=== PATIENT | male | born 1975 | race Caucasian/White ===

== ENCOUNTER 2023-12-03 14:25 | Outpatient (CLI) | payer BC, SELFPAY ==
--- NOTE | ~2023-12-03 | MR_ITS ---
EXAMINATION: MR ankle RT wo con, MR foot RT wo con DATE: 12/03/2023 15:35 INDICATION: Right foot and ankle pain TECHNIQUE: 1. Magnetic resonance imaging (MRI) of the right ankle was performed without intravenous contrast. Se quences included sagittal, coronal, and axial proton-density weighted fast spin echo without and with fat saturation. 2. MRI of the right fore/mid foot was performed without intravenous contrast. Sequences included sag ittal T1-weighted FSE, sagittal fluid sensitive FSE STIR, coronal PD-weighted FS FSE, coronal T1-weig hted FSE, axial PD-weighted FS FSE, and axial PD-weighted FSE. COMPARISON: None. FINDINGS: Medial ankle ligaments: There is loss of the normally well-defined striated pattern of the deep deltoid ligament consistent w ith scarring related to chronic sprain. Also consistent with scarring related to chronic sprain is th ickening of the anterior portion of the superficial deltoid ligament. The spring ligament complex is normal. Lateral ankle ligaments: The anterior and posterior inferior tibiofibular ligaments are normal. Small osteophyte at the talar insertion of the posterior talofibular ligament which likely represent heterotopic ossification relat ed to chronic sprain. Susceptibility artifact along the anterior and inferior margins of the lateral malleolus likely related to prior repair of the at least partially torn anterior talofibular and calc aneofibular ligaments both which appear attenuated. Mid/forefoot ligaments: The Lis Franc ligament complex is normal. There is mild thickening and minimal increased signal of th e lateral collateral ligament complex at the first metatarsophalangeal joint consistent with scarring related to chronic sprain. The remaining collateral ligament complexes at the metatarsophalangeal an d interphalangeal joints are normal. Tendons: Achilles tendon is normal. There is mild peroneal tenosynovitis. Mild kidneys from the knee and mild central increased signal of the peroneus longus tendon at the level of the tip of the lateral malleol us consistent with mild tendinopathy without discrete tear. There is additional mild tendinopathy wit h longitudinal split tearing of the peroneus brevis tendon beginning at the level of the retromalleol ar groove and extending to the level of the peroneal tubercle of the calcaneus. The tibialis anterior and extensor hallucis longus and extensor digitorum longus tendons are normal. No increased fluid co nsistent with additional tenosynovitis extending along the otherwise normal-appearing tibialis team leader surgery ior, flexor digitorum longus and flexor hallucis longus tendons. Plantar fascia: Minimal enthesopathy at the calcaneal origin of the central component of the plantar aponeurosis. No associated marrow or surrounding soft tissue edema to suggest acute plantar fasciitis. Bones/other: Bone alignment is normal. No fracture or pathologic marrow replacing process. There is mild marrow ed nivia at the plantar/lateral aspect of the head of the first metatarsal and the adjacent plantar/medial margin of the head of the second metatarsal. There is increased fluid signal in the intervening soft tissues. These findings could be related to an acute injury with bone and soft tissue contusions giles maria esther more chronic intermetatarsal bursitis and associated reactive edema. There is mild osteoarthritis at the first metatarsophalangeal joint with small joint effusion. Additional minimal to mild osteoar thritis at second-fourth tarsal metatarsal joints. IMPRESSION: 1. Scarring consistent with prior medial and lateral ankle sprains with postoperative change at the l ateral malleolus likely for repair of chronic at least partial tears of the anterior talofibular, margie caneofibular and potentially also the posterior talofibular ligament. 2. Mild peroneal tenosynovitis with tendinopathy of the peroneus longus and brevis tendons, the nadege michele
== END 2023-12-03 14:26 | disposition home or self-care (01) ==
PROVIDERS: Visit Provider Podiatrist Foot & Ankle Surgery
DX: M65.871 Other synovitis and tenosynovitis, right ankle and foot (principal); M19.071 Primary osteoarthritis, right ankle and foot; M89.8X7 Other specified disorders of bone, ankle and foot
CPT/HCPCS: 73718; 73721

== ENCOUNTER 2024-10-18 14:04 | Outpatient (NON) | payer BC, SELFPAY ==
[2024-10-18 14:19] LABS: Hematocrit 37.2 % (40.0-54.0); Hemoglobin 12.7 g/dL (14.0-18.0); Mean Corpuscular HGB Conc 34.1 g/dL (32-36); Mean Corpuscular Hemoglobin 28.7 pg (27.0-31.0); Mean Platelet Volume 9.2 fl (8.7-11.0); Platelet Count Result 303 K/mm3 (150-420); Red Blood Count 4.43 M/mm3 (4.70-6.10); Red Cell Distribution Width 12.5 % (11.6-14.4); White Blood Count 5.4 K/mm3 (4.8-10.8)
[2024-10-18 14:36] LABS: Alanine Aminotransferase 37 U/L (16-63); Albumin Level 3.9 g/dL (3.4-5.0); Alkaline Phosphatase 64 U/L (46-116); Anion Gap 8 mmol/L (4-12); Aspartate Amino Transferase 23 U/L (15-37); Bilirubin,Total 0.4 mg/dL (0.00-1.00); Blood Urea Nitrogen 9 mg/dL (7-18); Carbon Dioxide 28 mmol/L (21-32); Chloride 99 mmol/L (98-108); Estimated Glomerular Filt Rate > 60; Glucose 97 mg/dL (70-99); Osmolality Calculated 278 mOsm/kg (285-295); Potassium 4.8 mmol/L (3.5-5.1); Sodium 135 mmol/L (136-145); Total Protein 6.7 g/dL (6.4-8.2)
[2024-10-18 14:42] LABS: Calcium 9.2 mg/dL (8.5-10.1)
[2024-10-18 14:48] LABS: CRP < 0.5 mg/dL (0.0-0.9)
[2024-10-18 15:14] LABS: Erythrocyte Sedimentation Rate 10 mm/hr (0-15)
== END 2024-10-18 14:05 | disposition home or self-care (01) ==
DX: D72.829 Elevated white blood cell count, unspecified (principal); R56.9 Unspecified convulsions; D62 Acute posthemorrhagic anemia; T84.59XA Infection and inflammatory reaction due to other internal joint prosthesis, initial encounter; Y83.8 Other surgical procedures as the cause of abnormal reaction of the patient, or of later complication, without mention of misadventure at the time of the procedure; Z79.2 Long term (current) use of antibiotics; Z96.611 Presence of right artificial shoulder joint; Z45.2 Encounter for adjustment and management of vascular access device
CPT/HCPCS: 80053; 85027; 85652; 86140

== ENCOUNTER 2025-08-23 11:51 | Outpatient (NON) | payer OTHER, SELFPAY ==
[2025-08-23 12:12] LABS: Hematocrit 35.5 % (40.0-54.0); Hemoglobin 11.6 g/dL (14.0-18.0); Mean Corpuscular HGB Conc 32.7 g/dL (32-36); Mean Corpuscular Hemoglobin 28.2 pg (27.0-31.0); Mean Corpuscular Volume 86.4 fL (78.0-102.0); Platelet Count Result 268 K/mm3 (150-420); Red Blood Count 4.11 M/mm3 (4.70-6.10); White Blood Count 7.3 K/mm3 (4.8-10.8)
[2025-08-23 12:24] LABS: Alanine Aminotransferase 68 U/L (6-50); Albumin Level 4.2 g/dL (3.5-5.1); Alkaline Phosphatase 67 U/L (38-126); Anion Gap 5 mmol/L (4-12); Aspartate Amino Transferase 76 U/L (17-59); Bilirubin,Total 0.4 mg/dL (0.2-1.3); Blood Urea Nitrogen 13 mg/dL (9-20); Calcium 9.8 mg/dL (8.4-10.2); Carbon Dioxide 29 mmol/L (22-30); Chloride 102 mmol/L (98-107); Estimated Glomerular Filt Rate 59; Glucose 101 mg/dL (65-110); Osmolality Calculated 282 mOsm/kg (285-295); Potassium 5.0 mmol/L (3.4-5.0); Sodium 136 mmol/L (137-145); Total Protein 6.8 g/dL (6.3-8.2)
== END 2025-08-23 11:52 | disposition home or self-care (01) ==
DX: T84.59XD Infection and inflammatory reaction due to other internal joint prosthesis, subsequent encounter (principal); I10 Essential (primary) hypertension
CPT/HCPCS: 36415; 80053; 85027

== ENCOUNTER 2025-09-05 13:51 | Outpatient (NON) | payer OTHER, SELFPAY ==
--- OUTSIDE RECORDS SUMMARY | 2024-09-20 02:51 | XMS_ITS | Encounter Summary ---
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 This section includes the names of all active insurance providers for the patient. Insurance Provider Type of Coverage Plan Name Start of Policy Coverage End of Policy Coverage Group Number Member ID Insurance Provider's Telephone Number Policy Knapp's Name Patient's Relationship to Policy Knapp Selected Encounter This section includes the information on record at [place] for the Encounter. Date/Time Encounter Type Encounter Description Reason Pro vider Source Sep 20, 2024 08:51 AM Outpatient Encounter COMMUNITY CARE CONSULT IHE Encounter Template Text not used by [place] Plan of Treatment: Future Appointments (+ 6 months) and Future Tests (+/- 45 days) The Plan of Treatment section includes future care activities for the patient from all [place] treatmentfacilities. This section includes future appointments and future orders which are active, pending or scheduled. Future Appointments This section includes appointments that were scheduled to occur 6 months from the date of the Encounter, up to a maximum of 20 appointments. The data comes from all [place] treatment facilities. Appointment Date/Time Appointment Type Appointme nt Facility Name Sep 21, 2024 08:00 AM AMBULATORY - NONE [facility] Oct 18, 2024 08:30 AM AMBULATORY - MEDICINE [facility] Oct 19, 2024 01:00 PM AMBULATORY - NONE [facility] Jan 05, 2025 03:30 PM AMBULATORY - PSYCHIATRY [facility] Jan 16, 2025 03:30 PM AMBULATORY - MEDICINE [facility] Jan 23, 2025 02:15 PM AMBULATORY - MEDICINE [facility] Jan 25, 2025 09:45 AM AMBULATORY - MEDICINE [facility] Feb 06, 2025 02:00 PM AMBULATORY - REHAB [facility]ICIN [facility] Feb 21, 2025 08:00 AM AMBULATORY - NONE [facility] March 14, 2025 10:20 AM AMBULATORY - SURGERY . [facility] March 20, 2025 11:00 AM AMBULATORY - MEDICINE [facility] Active, Pending, and Scheduled Orders This section includes a listing of several types of active, pending, and scheduled orders, including clinic medications orders, diagnostic test orders, procedure orders and consult orders; where the start date of the order is 45 days before the date of the Encounter or 45 days after the date of theEncounter. The data comes from all [place] treatment facilities. Test Date/Time Test Type Test Details Facility Name Sep 18, 2024 08:39 AM Consult Order [facility] INFECTIOUS DISEASE Cons Clerical Support Specialist's [facility] Sep 18, 2024 08:39 AM Consult Order [facility] SKILLED HOME CARE [facility] Cons Clerical Support Specialists [facility] Sep 18, 2024 08:39 AM Consult Order [facility] HOME INFUSION THERAPY ST Cons Clerical Support Specialist's [facility] Encounter Notes: All associated encounter notes This section contains the clinical notes associated to the Encounter. Date/Time Encounter Note(s) Provider Source Sep 20, 2024 08:52 AM NONVA NOTE: LOCAL TITLE: COMMUNITY CARE-CARE COORDINATION PLAN NOTE [address] [facility] STANDARD TITLE: NONVA NOTE DATE OF NOTE: SEP 20, 2024@08:52 ENTRY DATE: SEP 20, 2024@08:52:08 AUTHOR: OPAL SILVA EXP COSIGNER: URGENCY: STATUS: COMPLETED Mukesh w/ [facility] called seeking confirmation of referral. Informed provider that a referral is avaiable and will be sent once [facility] is back up running. 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
--- OUTSIDE RECORDS SUMMARY | 2024-09-20 09:59 | XMS_ITS ---
Author Name [facility] [place] [facility] [place] [place] Address [address] [place] [address] Care Team Providers Care Hall Worker Name Role Phone СЕРГЕЙ SCHWARTZ Primary Care Provider Unavailshnanon leung Insurance Providers: All historical and current Section [...] section includes the information on record at [place] for the Encounter. Date/Time Encounter Type Encounter Description Reason Pro vider Source Sep 20, 2024 03:59 PM Outpatient Encounter PRIMARY CARE/MEDICINE IHE Encounter Template Text not used by [place] Plan of Treatment: Future Appointments (+ 6 months) and Future Tests (+/- 45 days) The Plan of Treatment section includes future care activities for the patient from all [place] treatmentfacilities. This section includes future appointments and future orders which are active, pending or scheduled. Future Appointments This section includes appointments that were scheduled to occur 6 months from the date of the Encounter, up to a maximum of 20 appointments. The data comes from all [place] treatment facilities. Appointment Date/Time Appointment Type Appointme nt Facility Name Sep 21, 2024 08:00 AM AMBULATORY - NONE [facility] Oct 18, 2024 08:30 AM AMBULATORY - MEDICINE [facility] Oct 19, 2024 01:00 PM AMBULATORY - NONE [facility] Jan 05, 2025 03:30 PM AMBULATORY - PSYCHIATRY [facility] Jan 16, 2025 03:30 PM AMBULATORY - MEDICINE [facility] Jan 23, 2025 02:15 PM AMBULATORY - MEDICINE [facility] Jan 25, 2025 09:45 AM AMBULATORY - MEDICINE [facility] Feb 06, 2025 02:00 PM AMBULATORY - REHAB MEDICIN E [facility] Feb 21, 2025 08:00 AM AMBULATORY - NONE [facility] March 14, 2025 10:20 AM AMBULATORY - SURGERY . [facility] March 20, 2025 11:00 AM AMBULATORY - MEDICINE [facility] Active, Pending, and Scheduled Orders This section includes a listing of several types of active, pending, and scheduled orders, including clinic medications orders, diagnostic test orders, procedure orders and consult orders; where the start date of the order is 45 days before the date of the Encounter or 45 days after the date of theEncounter. The data comes from all [place] treatment facilities. Test Date/Time Test Type Test Details Facility Name Sep 18, 2024 08:39 AM Consult Order [facility] INFECTIOUS DISEASE Cons [facility] Sep 18, 2024 08:39 AM Consult Order [facility] SKILLED HOME CARE [facility] Cons Captain Waiters [facility] Sep 18, 2024 08:39 AM Consult Order [facility] HOME INFUSION THERAPY [facility] Cons Captain Waiters [facility] Social History: Smoking Status (Most current) and Tobacco Use (All prior to encounter date) This section includes the most current, and the historical, smoking and tobacco- related health factors from the [place] facility where the Encounter took place. Current Smoking Status This section includes the most current smoking, or tobacco-related health factor, from the [place] facility where the Encounter took place. Date/Time Current Smoking Status Comment Sherry ity Jul 22, 2022 02:30 PM VA-TOBACCO NEVER USED [facility] Tobacco Use History This section includes a history of the smoking, or tobacco-related health factors, that were collected on or before the date of the Encounter. The data comes from the [place] facility where the Encounter took place. Date/Time Smoking Status/Tobacco Use Comment F acility Dec 18, 2020 08:30 AM VA-TOBACCO NEVER USED [facility] Nov 08, 2018 10:03 AM VA-TOBACCO NEVER USED . [facility] Encounter Notes: All associated encounter notes This section contains the clinical notes associated to the Encounter. Date/Time Encounter Note(s) Provider Source Sep 20, 2024 04:01 PM ADMINISTRATIVE NOT E: LOCAL TITLE: ADMINISTRATIVE [facility] STANDARD TITLE: ADMINISTRATIVE NOTE DATE OF NOTE: SEP 20, 2024@16:01 ENTRY DATE: SEP 20, 2024@16:01:17 AUTHOR: NORA HATFIELD EXP COSIGNER: URGENCY: STATUS: COMPLETED Received faxed operation report from [facility] in [place], [place]. Mr. Morillo has need for IV antibiotics, so September 16, 2024 had ultrasound and fluoroscopically-guided PICC line placed in left arm. Medical record prepared for scanning, forwarded to TOMER Schwartz for review. /guillaume/ NORA HATFILED REGISTERED NURSE Signed: 09/20/2024 16:04 NORA HATFIELD [facility]
--- OUTSIDE RECORDS SUMMARY | 2025-01-05 09:30 | XMS_ITS | Encounter Summary ---
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 Date/Time Encounter Type Encounter Description Reason Provider Source Jan 05, 2025 03:30 PM OFFICE O/P EST MOD 30 MIN PCMHI INDIV ICD-10-CM F31.81 Bipolar II disorder MAYUR BURNS IHE Encounter Template Text not used by [place] Assessments - Encounter Diagnoses This section includes the primary and secondary diagnoses documented for the Encounter. Date/Time Primary/Secondary Diagnosis Diagnosis Name Provider Source Jan 05, 2025 05:02 PM PRIMARY Bipolar II disorder MAYUR BURNS [facility] Jan 05, 2025 05:02 PM SECONDARY Obsessive-compuls inder disorder, unspecified MAYUR BURNS [facility] Plan of Treatment: Future Appointments (+ 6 months) and Future Tests (+/- 45 days) The Plan of Treatment section includes future care activities for the patient from all [place] [facility] This section includes future appointments and future orders which are active, pending or scheduled. Future Appointments This section includes appointments that were scheduled to occur 6 months from the date of the Encounter, up to a maximum of 20 appointments. The data comes from all [facility]. Appointment Date/Time Appointment Type Appointme nt Facility Name Jan 16, 2025 03:30 PM AMBULATORY - MEDICINE [facility] Jan 23, 2025 02:15 PM AMBULATORY - MEDICINE [facility] Jan 25, 2025 09:45 AM AMBULATORY - MEDICINE [facility] Feb 06, 2025 02:00 PM AMBULATORY - REHAB [facility]ICIN [facility] Feb 21, 2025 08:00 AM AMBULATORY - NONE [facility] March 14, 2025 10:20 AM AMBULATORY - SURG[facility] . [facility] March 20, 2025 11:00 AM AMBULATORY - MEDICINE [facility] Active, Pending, and Scheduled Orders This section includes a listing of several types of active, pending, and scheduled orders, including clinic medications orders, diagnostic test orders, procedure orders and consult orders; where the start date of the order is 45 days before the date of the Encounter or 45 days after the date of theEncounter. The data comes from all [facility]. Test Date/Time Test Type Test Details Facility Name Jan 25, 2025 10:25 AM Consult Order [facility] [employer] Feb 13, 2025 03:51 PM Consult Order [facility] SURG [facility] [employer] Encounter Notes: All associated encounter notes This section contains the clinical notes associated to the Encounter. Date/Time Encounter Note(s) Provider Source Jan 05, 2025 05:03 PM SUICIDE PREVENTION NOTE: LOCAL TITLE: [place]-SUICIDE SEVERITY RATING SCALE STANDARD TITLE: SUICIDE PREVENTION NOTE DATE OF NOTE: JAN 05, 2025@17:03 ENTRY DATE: JAN 05, 2025@17:03:58 AUTHOR: GBADEBO-GOYEA,ERNES EXP COSIGNER: URGENCY: STATUS: COMPLETED [place]-Suicide Severity Rating Scale (C-SSRS Screener) 1. Over the past month, have you wished you were or wished you could go to sleep and not wake up? No 2. Over the past month, have you had any actual thoughts of killing yourself? No 3. Over the past month, have you been thinking about how you might do this? Response not required due to responses to other questions. 4. Over the past month, have you had these thoughts and had some intention of acting on them? Response not required due to responses to other questions. 5. Over the past month, have you started to work out or worked out the details of how to kill yourself? Response not required due to responses to other questions. 6. If yes, at any time in the past month did you intend to carry out this plan? Response not required due to responses to other questions. 7. In your lifetime, have you ever done anything, started to do anything, or prepared to do anything to end your life (for example, collected pills, obtained a gun, gave away valuables, went to the roof but didn't jump)? No 8. If YES, was this within the past 3 months? Response not required due to responses to other questions. I have reviewed the results of the Mental Health screens and have evaluated the patient. Based on the evaluation, the following disposition plan will be implemented: No further intervention is needed at this time. Contact information and instructions for accessing emergency services provided. /guillaume/ MAYUR BURNS MD PSYCHIATRIST Signed: 01/05/2025 17:04 ERIC BURNS [facility] Jan 05, 2025 04:13 PM ACCOUNTING OF DISCLOSURES NOTE: LOCAL TITLE: STATE PRESCRIPTION DRUG MONITORING PROGRAM STANDARD TITLE: ACCOUNTING OF DISCLOSURES NOTE DATE OF NOTE: JAN 05, 2025@16:13:12 ENTRY DATE: JAN 05, 2025@16:13:12 AUTHOR: EIRC BURNS COSIGNER: URGENCY: STATUS: COMPLETED This PDMP query was submitted by Mayur Burns MD. The clinical justification for this PDMP query is to review controlled substances prescribed outside of the [facility], and any additional information that may become available, as an important component of standard clinical care, and in accordance with [facility] policy. Patient information was shared with the [facility] [employer] [place]. No prescription(s) for controlled substances outside the [facility] were found in the last 90 days. /guillaume/ MAYUR BURNS MD PSYCHIATRIST Signed: 01/05/2025 16:15 ERIC BURNS [facility] Jan 05, 2025 04:06 PM HEMATOLOGY AND ONCOLOGY NOTE: LOCAL TITLE: PHARMACOGENOMICS NOTE STANDARD TITLE: HEMATOLOGY AND ONCOLOGY NOTE DATE OF NOTE: JAN 05, 2025@16:06 ENTRY DATE: JAN 05, 2025@16:06:28 AUTHOR: ERIC BURNS EXP COSIGNER: URGENCY: STATUS: COMPLETED [place] Pharmacogenomic Testing for Veterans (PHASER) ----- The overall goal of pharmacogenomic (PGx) testing is to improve the efficacy and reduce the toxicity of commonly prescribed medications. Automated clinical decision support is used to guide PGx results interpretation and use of test results. To learn more about PGx testing, please visit: [email or web address]://[email or web address] CONTRAINDICATION - PGX testing is not advisable and PGx results may not be interpretable for patients who are recipients of a liver transplant, or who have undergone allogeneic bone marrow transplant. Instead, order a Pharmacogenomics E-consult. HERITABLE DISEASE IMPLICATIONS - PGx testing may reveal heritable disease information. Patients and the ordering provider will be notified of any implications should they arise. For current testing panel details and which (if any) genes currently have heritable disease implications, visit: [email or web address]://[email or web address] Annetta I have discussed the plan to order the PHASER PGx testing panel with this patient. I have explained the test's risks, benefits, alternatives, limitations, and potential heritable disease implications. I have given the patient an opportunity to ask questions regarding pharmacogenomic testing and I have satisfactorily addressed them. The patient orally consented to the PHASER pharmacogenomic test panel. /guillaume/ MAYUR BURNS MD PSYCHIATRIST Signed: 01/05/2025 16:16 ERIC BURNS [facility] Jan 05, 2025 03:45 PM PSYCHIATRY NOTE: LOCAL TITLE: [facility] PSYCHIATRY ST STANDARD TITLE: PSYCHIATRY NOTE DATE OF NOTE: JAN 05, 2025@15:45 ENTRY DATE: JAN 05, 2025@15:45:49 AUTHOR: ERIC BURNS EXP COSIGNER: URGENCY: STATUS: COMPLETED GENERAL INFORMATION: NAME: PANKAJ MORILLO Age: 49 Race: Race - NONE FOUND Sex: MALE Service Connected: Yes (30%) [address] [place] [address] LAST PSYCHIATRIC ADMISSION: 01/31/2022 - 01/31/2022 LOS: 1 Interim hx: is a 49 year old, male with history of bipolar 2 depression was currently on Lamictal and bupropion for mood, and Prozac for depression, Obsessions and compulsions [place] presents today for f/u for mood, depression and anxiety. He was last evaluated August 2024 During previous visits he reported he had been n taking 100 mg of Lamictal daily and felt that this may be the reason for his delayed ejaculation. Of note is the fact that esperanza recently had a surgical reversal of his vasectomy. He and his were attempting to conceive and have biological child/children. He reported history of delayed ejaculation but not to the point he is now experiencing. This had been ongoing for the 2 months. He reported that it has been ongoing prior to his surgery. reported that he is looking forward to having the child, has a new job, and everything seems to be going along very well he reported that he has not been doing any drugs, no smoking, no alcohol use however has been experiencing nightly occurrence of nightmares which he described as nightmares of my daily thoughts this started about 1-2 months ago.() He denied recent use of any new medications, no [id number] supplements except his pre-workouts supplements. Subsequently reported that my OCd is getting worse, I have had them for years but now i find myself double checking doors, triple checking He also reported that he has been having high and lows sometimes i have highs and then recognize what is happening and i try to perk myself up and other times not low, low but i find my emotions are flat He reported that he has been impulsively buying things he does not need, denied gambling or other risk taking behavior, he reported somewhat diminished libido which he attributed to their schedule, ( she is a [employer] student ) he denied recent break ins or robbery attempts in his neighborhood. He reported that work is really good' and busy but felt more anxious surrounding work, pending knee replacement surgery and changes in his sense of self 2nd to multiple musculoskeletal difficulties, it feels like i am getting old, i can't play with my son, like i used to do . he denied any other psychosocial difficulties he continued to report abstinence from alcohol and other illicit substances and denied use of OTC supplement. Plan was to: Continue Lamictal 100 mg po qdaily for mood stabilization -Continue Prozac 40 mg po bid for depression and obsession -Continue Wellbutrin 200 mg po qdaily for mood stabilization, improvement in focusing and concentration and improving energy level . Current Subjective: Today, [place] reports last September he underwent emergency shoulder surgery which was complicated and had to undergo several revisions of the surgery, and this had put him in a state of inactivity which he reports has been affecting his sense of self. 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 He reports that there is some financial stress as his took a $30,000 pay cut and he is starting a new job. All of this has committed into him feeling more depressed. He reports that he has not engaged in drinking which would have been his usual go to. He continues to report abstinence from alcohol. He reports some difficulties relationally with his . He reports that he had doubled up on the dose of his Lamictal, to see if it will make a difference in his mood. He reports that he has been taking off Keppra by the neurology service. He reports good relationship with his son. He has no other concerns. He denies thoughts of self-harm and harm to others. [place] denies having thoughts about ending his life, denies the desire/intent to by his own doing, denies rationale/motivation to end his life. [place] also denies AH/VH. He reports that he went to the daughter's wedding and he was anguished with the fact that her stepdad and himself had to walk the bride down the aisle and also at the end daughter at times. denies use of Substances including use of heroin, opiate, benzos, barbiturates, PCP, LSD, amphetamines ,K2 & bath salt use. denies use of alcohol. past use: yes Beer: 12oz -- less than 5 drinks at a seating-- YES Wine: glass(5oz)-- less than 5 drinks at a seating :YES possible unhealthy drinking--N At risk ---N Number of standard drinks per week ------0 greater than 14 drinks N---Male [place] aware of the deleterious effect of alcohol on the liver, memory, heart, sexual function and overall health. verbalized understanding. Reports adherence to his medications and is tolerating medications well, no adverse effects noted or reported. VITAL SIGNS: BMI: 28.0 Height: 74 in [188.0 cm] (07/28/2024 13:37) Weight: 218 lb [98.88 kg] (07/28/2024 13:37) Blood Pressure: 119/78 (07/28/2024 13:37) Pain Scale: 7 (07/28/2024 13:37) Pulse: 101 (07/28/2024 13:37) Respiration: 20 (07/28/2024 13:37) Temperature: 98.2 F [36.8 C] (07/28/2024 13:37) labs ==== SODIUM 133 L mEq/L 08/16/2024 12:40 POTASSIUM 4.3 mEq/L 08/16/2024 12:40 CHLORIDE 101 mEq/L 08/16/2024 12:40 UREA NITROGEN 14.6 mg/dL 08/16/2024 12:40 CREATININE 1.23 mg/dL 08/16/2024 12:40 CALCIUM 9.4 mg/dL 08/16/2024 12:40 CARBON DIOXIDE 22 mEq/L 08/16/2024 12:40 GLUCOSE 130 H mg/dL 08/16/2024 12:40 EGFR (CKD-EPI 2020) 72.4 08/16/2024 12:40 WBC 9.5 10*3/uL 08/16/2024 12:40 RBC 4.79 10*6/uL 08/16/2024 12:40 HGB 14.4 g/dL 08/16/2024 12:40 HCT 41.7 % 08/16/2024 12:40 MCV 87.1 fL 08/16/2024 12:40 MCH 30.1 pg 08/16/2024 12:40 MCHC 34.5 g/dL 08/16/2024 12:40 RDW 12.3 % 08/16/2024 12:40 PLT 290 10*3/uL 08/16/2024 12:40 MPV 9.5 fL 08/16/2024 12:40 NEUTROPHILS, AUTO % 87 % 08/16/2024 12:40 LYMPHOCYTES, AUTO % 10 % 08/16/2024 12:40 MONOCYTES, AUTO % 2 % 08/16/2024 12:40 EOSINOPHILS, AUTO % 0 % 08/16/2024 12:40 BASOPHILS, AUTO % 0 % 08/16/2024 12:40 NEUTROPHILS, ABSOLUTE 8.28 H 10*3/uL 08/16/2024 12:40 LYMPHOCYTES, ABSOLUTE 0.96 10*3/uL 08/16/2024 12:40 MONOCYTES, ABSOLUTE 0.19 10*3/uL 08/16/2024 12:40 EOSINOPHILS, ABSOLUTE 0.03 10*3/uL 08/16/2024 12:40 BASOPHILS, ABSOLUTE 0.04 10*3/uL 08/16/2024 12:40 SODIUM 133 L mEq/L 08/16/2024 12:40 POTASSIUM 4.3 mEq/L 08/16/2024 12:40 CHLORIDE 101 mEq/L 08/16/2024 12:40 UREA NITROGEN 14.6 mg/dL 08/16/2024 12:40 CREATININE 1.23 mg/dL 08/16/2024 12:40 CALCIUM 9.4 mg/dL 08/16/2024 12:40 PROTEIN 6.9 g/dL 08/16/2024 12:40 ALBUMIN 4.3 g/dL 08/16/2024 12:40 ALKALINE PHOSPHATASE 54 U/L 08/16/2024 12:40 ALT/SGPT 38 U/L 08/16/2024 12:40 AST/SGOT 28 U/L 08/16/2024 12:40 TOTAL BILIRUBIN 0.5 mg/dL 08/16/2024 12:40 CARBON DIOXIDE 22 mEq/L 08/16/2024 12:40 GLUCOSE 130 H mg/dL 08/16/2024 12:40 EGFR (CKD-EPI 2020) 72.4 08/16/2024 12:40 08/25/2024 11:57 Local Title: EKG CONSULT [facility] Standard Title: CARDIOLOGY DIAGNOSTIC STUDY CONSULT AUTHOR: CLINICAL,DEVICE PROXY SERVICE DOCUMENT IN [facility] SEE FULL REPORT IN [facility] SIGNATURE NOT REQUIRED SEE SIGNATURE IN [facility] (Hermosa EKG) AUTO-INSTRUMENT DIAGNOSIS Procedure: 71432 12 Lead ECG Release Status: Released Off-Line Verified Date Verified: Aug 25, 2024@11:57:12 21134.2 Ventricular Rate: 73 BPM 00920.3 Atrial Rate: 73 BPM 75452.4 P-R Interval: 150 ms 26790.5 QRS Duration: 90 ms 49898.6 Q-T Interval: 374 ms 75298 QTC Calculation(Bazett)412 ms 26266.12 Calculated P Boling: 61 degrees 43200.13 Calculated R Boling: 73 degrees 19129.14 Calculated T Boling: 46 degrees Normal sinus rhythm Normal ECG When compared with ECG of 02-JAN-2022 11:07, No significant change was found Administrative Closure: 08/25/2024 by: CLINICAL,DEVICE PROXY SERVICE < THE ABOVE NOTE IS UNSIGNED > - DRAFT COPY * DRAFT COPY * DRAFT COPY * DRAFT COPY * DRAFT COPY * DRAFT COPY - ____ HGA1C 5.9 % 08/16/2024 12:40 TRIGLYCERIDE 147 mg/dL 08/16/2024 12:40 CHOLESTEROL 208 H mg/dL 08/16/2024 12:40 HDL(New) 65 mg/dL 08/16/2024 12:40 CALCULATED LDL 114 mg/dL 08/16/2024 12:40 No URINALYSIS EO data found AMPHET/METHAMPHETAMINE Negative ng/mL 08/16/2024 12:47 BENZODIAZEPINES (STL) Negative ng/mL 08/16/2024 12:47 CANNABINOIDS Negative ng/mL 08/16/2024 12:47 COCAINE METABOLITES Negative ng/mL 08/16/2024 12:47 OPIATES Negative ng/mL 08/16/2024 12:47 VITAMIN D, 25-HYDROXY 26.4 L ng/mL 08/16/2024 12:40 Previous medication Trials Abilify, BuSpar, clonazepam, Lexapro, gabapentin, Vistaril, Keppra, naltrexone and prazosin ALLERGIES: AMOXICILLIN Medications: Active Outpatient Medications (including Supplies): Active Outpatient Medications Status 1) BUPROPION HCL 200MG 12HR SA TAB TAKE ONE TABLET BY MOUTH ACTIVE ONCE A DAY SWALLOW WHOLE - DO NOT CRUSH OR CHEW. Indication: FOR DEPRESSION 2) FLUOXETINE HCL 40MG CAP TAKE ONE CAPSULE BY MOUTH ONCE A DAY ACTIVE Indication: FOR DEPRESSION 3) LAMOTRIGINE 200MG TAB TAKE ONE-HALF TABLET BY MOUTH ONCE A ACTIVE DAY FOR MOOD OR SEIZURES 4) LISINOPRIL 40MG TAB TAKE ONE TABLET BY MOUTH ONCE A DAY FOR ACTIVE HEART OR BLOOD PRESSURE ACTIVE OUTPATIENT INJECTIONS AND INPATIENT MEDICATIONS: No medications found. 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 No Psychomotor agitation or retardation noted. Eye Contact: appropriate with intermittent avoidance during recall of his struggles Motor Activity: no tics, no tremors or involuntary movement noted Gait: Steady, normal Orientation: Alert and oriented to time place person and purpose Speech: fluent, spontaneous, normal rate, volume, rhythm was fluid, Mood: Not good Affect: Mood congruent Memory: grossly intact Concentration/ attention: Attentive and engaging Thought Process: logical, and goal directed Thought Content: Focused on medication adjustments otherwise appropriate, no delusion, preoccupation or obsession noted Suicidal Ideation: Denies Homicidal Ideation: Denies Assaultive Ideation: Denies Auditory Hallucinations: Denies Visual Hallucinations: Denies Appearing to respond to internal stimuli: No Impulse control; fair Insight: Fair Judgment: Fair SUICIDE RISK ASSESSMENT: == Assessed Level of Suicide Risk: [ ] Imminent - Lethal or potentially lethal suicide attempt or severe suicidal ideations with plan and intent requiring immediate psychiatric hospitalization [ ] High - Psychiatric diagnosis with severe symptoms or acute precipitating event, protective factors not relevant, potentially lethal suicide attempt or persistent ideation with strong intent or suicide rehearsal [ ] Moderate - Multiple risk factors, few protective factors, suicidal ideation with a plan, no intent or behavior [X]Low - Modifiable risk factors, strong protective factors, thoughts of , no plan or behavior S: (X) Sex males are more likely to kill themselves A: Age 20-24 />65 highest risk D: Depression Yes : No Hopelessness is a strong predictor P:Previous attempts: Denies about 80% of completed suicides were preceded by a prior attempt E: Ethanol: No alcohol and drug abuse which may increase risk R; Rational thinking: No loss, No distorted perceptions, & No psychosis S: Social support: has good social support: No deficit relationship or job loss, legal difficulties, or illness causing social withdrawal O: No Organized plan N: No spouse or significant other- No A: Access to lethal means- denies S: Sickness and current medical illness: no current chronic incurable illness The presence of each factor is given a point value of one. Higher scores indicate greater patient suicide risk. 0-3little risk follow up with routine outpatient appointments Violence Risk Violence risk is found to be: low due to no reports of violence in the past 6 months or observation of violence. 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 -Continue Prozac 40 mg qdaily for depression and obsession -Increase Wellbutrin from 200 to 300 mg q daily for mood stabilization, improvement in - Patient encouraged to take medications as prescribed and attend appointments as scheduled - Risk vs benefits, of treatment including Black box warning and common side effects of the above medication were discussed with the patient. Patient verbalized understanding and agreement. - Pt educated regarding the risk of combining medications with alcohol or illicit drugs --Encouraged diet and exercise --Crisis protocol reviewed with the patient --RTC within 12 weeks - has my card with contact info and crisis line number -Time c 30 min, - Medication Reconciliation Opt STL: I have reviewed the patient's medication list with the patient and/or His/her care-drama teacher. Any medication discrepancies have been resolved. Patient will be provided with an updated list of medication(s). - Advised the [place] that should any thoughts of self-harm occur, to call Crisis line at and press 1, or call 911 or go to the nearest ER -Please note that this dictation was completed with computer voice recognition software, often unanticipated grammatical, syntax and other interpretive errors are inadvertently transcribed by the computer software. Please disregard these errors. /guillaume/ MAYUR BURNS MD PSYCHIATRIST Signed: 01/05/2025 17:03 ERIC BURNS [facility]
--- OUTSIDE RECORDS SUMMARY | 2025-01-31 05:17 | XMS_ITS | Encounter Summary ---
Author Name [facility] [place] [facility] [place] Address [address] [place] [address] Care Team Providers Care Teletype Technician Name Role Phone СЕРГЕЙ MONDRAGON Primary Care Provider Unavailshannon leung Insurance Providers: All historical and current [...] section includes the information on record at [place] for the Encounter. Date/Time Encounter Type Encounter Description Reason Pro vider Source Jan 31, 2025 11:17 AM Outpatient Encounter COMMUNITY CARE CONSULT IHE Encounter Template Text not used by [place] Plan of Treatment: Future Appointments (+ 6 months) and Future Tests (+/- 45 days) The Plan of Treatment section includes future care activities for the patient from all [place] treatmentfacilities. This section includes future appointments and future orders which are active, pending or scheduled. Future Appointments This section includes appointments that were scheduled to occur 6 months from the date of the Encounter, up to a maximum of 20 appointments. The data comes from all [place] treatment facilities. Appointment Date/Time Appointment Type Appointme nt Facility Name Feb 06, 2025 02:00 PM AMBULATORY - REHAB MEDICIN E [facility] Feb 21, 2025 08:00 AM AMBULATORY - NONE [facility] March 14, 2025 10:20 AM AMBULATORY - SURGERY . [facility] March 20, 2025 11:00 AM AMBULATORY - MEDICINE [facility] Active, Pending, and Scheduled Orders This section includes a listing of several types of active, pending, and scheduled orders, including clinic medications orders, diagnostic test orders, procedure orders and consult orders; where the start date of the order is 45 days before the date of the Encounter or 45 days after the date of theEncounter. The data comes from all [place] treatment facilities. Test Date/Time Test Type Test Details Facility Name Jan 25, 2025 10:25 AM Consult Order COMMUNITY CARE-ST REHAB PT Cons Family Worker's [facility] Feb 13, 2025 03:51 PM Consult Order COMMUNITY CARE-STL ORTHO SURG Cons [facility] Social History: Smoking Status (Most current) and Tobacco Use (All prior to encounter date) This section includes the most current, and the historical, smoking and tobacco- related health factors from the [place] facility where the Encounter took place. Current Smoking Status This section includes the most current smoking, or tobacco-related health factor, from the [place] facility where the Encounter took place. Date/Time Current Smoking Status Comment Sherry duque Oct 23, 2023 02:59 PM NH-TOBACCO NEVER USED [facility] Tobacco Use History This section includes a history of the smoking, or tobacco-related health factors, that were collected on or before the date of the Encounter. The data comes from the [place] facility where the Encounter took place. Date/Time Smoking Status/Tobacco Use Comment F tiara Dec 22, 2018 10:07 AM NH-TOBACCO NEVER USED [facility] Encounter Notes: All associated encounter notes This section contains the clinical notes associated to the Encounter. Date/Time Encounter Note(s) Provider Source Jan 31, 2025 11:17 AM LETTERS: LOCAL TITLE: COMMUNITY CARE-REQUEST FOR SERVICES (RFS) LETTER ST STANDARD TITLE: LETTERS DATE OF NOTE: JAN 31, 2025@11:17 ENTRY DATE: JAN 31, 2025@11:18:12 AUTHOR: CASEY FERNANDEZ COSIGNER: URGENCY: STATUS: COMPLETED [facility] [address] [place] [address] [facility] [address] [facility] [address] Dear Provider, Information: Patient Name: PANKAJ MORILLO Date of : Sep The [facility] has received the request continued physical therapy from you for services that were not originally authorized in the [facility] for this . Upon review, the following determination has been made: Service has been approved. (Authorization #pending) Should you have questions, please contact us at [phone] to speak with a patient service agent. As a reminder, if applicable, return medical records within 30 days for routine services. Sincerely, Sincerely, CASEY FERNANDEZ MSN RN REGISTERED NURSE CASEY FERNANDEZ [facility]
--- OUTSIDE RECORDS SUMMARY | 2025-02-20 08:33 | XMS_ITS ---
Author Name [facility] [place] [facility] [place] Address [address] [place] [address] Care Team Providers Care Aerial Erector Name Role Phone СЕРГЕЙ MONDRAGON Primary Care [...] Knapp's Name Patient's Relationship to Policy Knapp [employer] PRESCRIPT ION RX PLAN May 02, 2024 UNITEDR X [id number] PATIENT Selected Encounter This section includes the information on record at [place] for the Encounter. Date/Time Encounter Type Encounter Description Reason Pro vider Source Feb 20, 2025 02:33 PM Outpatient Encounter GENERAL INTERNAL MEDICINE IHE Encounter Template Text not used by [place] Plan of Treatment: Future Appointments (+ 6 months) and Future Tests (+/- 45 days) The Plan of Treatment section includes future care activities for the patient from all [place] treatmentfacilities. This section includes future appointments and future orders which are active, pending or scheduled. Future Appointments This section includes appointments that were scheduled to occur 6 months from the date of the Encounter, up to a maximum of 20 appointments. The data comes from all [place] treatment facilities. Appointment Date/Time Appointment Type Appointme nt Facility Name Feb 21, 2025 08:00 AM AMBULATORY - NONE [facility] March 20, 2025 11:00 AM AMBULATORY - MEDICINE [facility] Active, Pending, and Scheduled Orders This section includes a listing of several types of active, pending, and scheduled orders, including clinic medications orders, diagnostic test orders, procedure orders and consult orders; where the start date of the order is 45 days before the date of the Encounter or 45 days after the date of theEncounter. The data comes from all [place] treatment facilities. Test Date/Time Test Type Test Details Facility Name Feb 13, 2025 03:51 PM Consult Order COMMUNITY CARE-STL ORTHO SURG Cons Operational Trainer's Choice [facility] Social History: Smoking Status (Most current) and Tobacco Use (All prior to encounter date) This section includes the most current, and the historical, smoking and tobacco- related health factors from the [place] facility where the Encounter took place. Current Smoking Status This section includes the most current smoking, or tobacco-related health factor, from the [place] facility where the Encounter took place. Date/Time Current Smoking Status Comment Sherry ity Oct 23, 2023 02:59 PM [place]-TOBACCO NEVER USED [facility] Tobacco Use History This section includes a history of the smoking, or tobacco-related health factors, that were collected on or before the date of the Encounter. The data comes from the [place] facility where the Encounter took place. Date/Time Smoking Status/Tobacco Use Comment F acbrenden Dec 22, 2018 10:07 AM [place]-TOBACCO NEVER USED [facility] Encounter Notes: All associated encounter notes This section contains the clinical notes associated to the Encounter. Date/Time Encounter Note(s) Provider Source Feb 20, 2025 02:33 PM ADMINISTRATIVE NOT E: LOCAL TITLE: ADMINISTRATIVE COMMUNITY CARE REQUEST ST STANDARD TITLE: ADMINISTRATIVE NOTE DATE OF NOTE: FEB 20, 2025@14:33 ENTRY DATE: FEB 20, 2025@14:35:02 AUTHOR: SANDRINE SHARMA COSIGNER: URGENCY: STATUS: COMPLETED [place] called [facility] stating he receiving bills where his primary insurance [facility] was billed instead of [facility]. [facility] Anesthesia: ACCT: [id number], 11-7-2024 for 1066.84. Python Programmer called [facility] and spoke with Jaci and gave auth number [id number]. Jaci will have VA billed. [facility] Lab: Reference: [id number], 10-18-2024 for 508.70. Python Programmer called Jimena at [phone] on bill (no answer - left message on Jimena's voicemail to call comm). Python Programmer called [phone] and spoke with Elaine who will mail claim to Opt mailing address [facility] [id number], [facility] [address] and contact [employer] at [phone]. [place] also receiving balance bill from ER visit from 2019 and inquiring how to request that bill be paid. Python Programmer advised he can fill out claim form and send to VA claims dept to request payment but not guarantee it will be paid. Python Programmer sent claim form [id number] to via [facility] as requested. /guillaume/ SANDRINE SHARMA Advanced Room Inspector Signed: 02/20/2025 15:15 SANDRINE SHARMA [facility]
--- OUTSIDE RECORDS SUMMARY | 2025-03-20 05:00 | XMS_ITS | Encounter Summary ---
Author Name [facility] [place] [facility] [place] Organization [facility] [place] Address [address] [place] [address] Care Team Providers Care Safe Expert Name Role Phone СЕРГЕЙ MONDRAGON Primary Care Provider Unavailabl e Insurance Providers: All historical and current [...] PRESCRIPT ION RX PLAN May 02, 2024 UNITED X [id number] PATIENT Selected Encounter This section includes the information on record at [place] for the Encounter. Date/Time Encounter Type Encounter Description Reason Provider Source March 20, 2025 11:00 AM OFFICE O/P EST MOD 30 MIN PRIMARY CARE/MEDICINE ICD-10-CM M17.31 Unilateral post-traumatic osteoarthritis, right knee MONDRAGON,СЕРГЕЙ A IHE Encounter Template Text not used by [place] Assessments - Encounter Diagnoses This section includes the primary and secondary diagnoses documented for the Encounter. Date/Time Primary/Secondary Diagnosis Diagnosis Name Provider Source March 20, 2025 11:41 AM PRIMARY Unilateral post-traumatic osteoarthritis, right knee MONDRAGON,СЕРГЕЙ A [facility] March 20, 2025 11:41 AM SECONDARY Anxiety disorder, unspecified MONDRAGON,СЕРГЕЙ Benjamin [facility] March 20, 2025 11:41 AM SECONDARY Essential (primary) hypertension MONDRAGONСЕРГЕЙ [facility] March 20, 2025 11:41 AM SECONDARY Major depressive disorder, recurrent, moderate MONDRAGON,СЕРГЕЙ Benjamin [facility] March 20, 2025 11:41 AM SECONDARY Pain in unspecified shoulder MONDRAGON,[facility] Sourav [facility] Plan of Treatment: Future Appointments (+ 6 months) and Future Tests (+/- 45 days) The Plan of Treatment section includes future care activities for the patient from all [place] treatmentfacilities. This section includes future appointments and future orders which are active, pending or scheduled. Active, Pending, and Scheduled Orders This section includes a listing of several types of active, pending, and scheduled orders, including clinic medications orders, diagnostic test orders, procedure orders and consult orders; where the start date of the order is 45 days before the date of the Encounter or 45 days after the date of theEncounter. The data comes from all [place] treatment facilities. Test Date/Time Test Type Test Details Facility Name Feb 13, 2025 03:51 PM Consult Order COMMUNITY CARE-STL ORTHO SURG Cons Foreign Language Instructor's Choice [facility] Vital Signs: All taken on the encounter date This section contains inpatient and outpatient Vital Signs collected on the date of the Encounter. Date/Time Temperature Pulse Blood Pressure Respiratory Rate SP02 Pain Height Weight Body Mass Index Source March 20, 2025 11:08 AM 97.5 76 115/75 20 98 4 74 219 28 [facility] Social History: Smoking Status (Most current) and Tobacco Use (All prior to encounter date) This section includes the most current, and the historical, smoking and tobacco- related health factors from the [place] facility where the Encounter took place. Current Smoking Status This section includes the most current smoking, or tobacco-related health factor, from the [place] facility where the Encounter took place. Date/Time Current Smoking Status Comment Facil ity Jul 22, 2022 02:30 PM VA-TOBACCO NEVER USED [facility] Tobacco Use History This section includes a history of the smoking, or tobacco-related health factors, that were collected on or before the date of the Encounter. The data comes from the [place] facility where the Encounter took place. Date/Time Smoking Status/Tobacco Use Comment F tiara Dec 18, 2020 08:30 AM [place]-TOBACCO NEVER USED [facility] Nov 08, 2018 10:03 AM VA-TOBACCO NEVER [facility]ED [facility] Encounter Notes: All associated encounter notes This section contains the clinical notes associated to the Encounter. Date/Time Encounter Note(s) Provider Source March 20, 2025 11:30 AM NURSING NOTE: LOCAL TITLE: V15 PACT FACE TO FACE NOTE STL STANDARD TITLE: NURSING NOTE DATE OF NOTE: MARCH 20, 2025@11:30 ENTRY DATE: MARCH 20, 2025@11:30:52 AUTHOR: SHARON SHARMA EXP COSIGNER: URGENCY: STATUS: COMPLETED Provider Visit: Patient Identifiers : Full Name Date of Reason for visit: Established Follow-Up Mode of Arrival: Ambulatory Allergy Review: AMOXICILLIN DEC 22, 2018 (HISTORICAL) Symptoms: SEIZURE Allergy list reviewed and remains current. Recent Vital Signs: Temperature: 97.5 F [36.4 C] (03/20/2025 11:08) Pulse: 76 (03/20/2025 11:08) Respiration: 20 (03/20/2025 11:08) B/P: 115/75 (03/20/2025 11:08) Pain: 4 (03/20/2025 11:08) Wt: 219 lb [99.34 kg] (03/20/2025 11:08) Ht: 74 in [188.0 cm] (03/20/2025 11:08) BMI: 28.2 POX: 98% (03/20/2025 11:08) PERSONAL HEALTH INVENTORY Notes: No data available for PHI note titles PERSONAL HEALTH INVENTORY - MAP: Personal Health Inventory (Short) 12/29/2018 Phis What Do You Live For My family, my family, to live as long as possible, and enjoy life, God, and all the things around you can not explain What matters most to you in your life right now? - Munden's Response: family WHOLE HEALTH SHARED GOALS: PERSONAL HEALTH PLAN - SHARED GOALS: Php 12/05/2019 Php Shared Goals SHARED GOALS right shoulder/knee Would you like to discuss any personal problem, family problem, alcohol use, drug use, or a mental or emotional illness? No My [facility] ([facility]), please select appointment type: Face to face: Yes- Done Contact provided Primary Care phone number and encouraged to call if any questions or concerns. Review that after hours nurse line ext.[phone] and emergency room are available 25/05 for patient use. Contact verbalized good understanding. Sexual Orientation - CP,L,N,P,PH,PS,S,U: The patient thinks of their sexual orientation as: Straight or Heterosexual Homelessness/Food Insecurity Screen - DI,L,N,P,PH,PS,S,U: In the past 2 months, have you been living in stable housing that you own, rent, or stay in as part of a household? Yes - Living in stable housing. Are you worried or concerned that in the next 2 months you may NOT have stable housing that you own, rent, or stay in as part of a household? No - Not worried about housing near future The reports the following: Within the past 12 months, you worried whether your food would run out before you got money to buy more. Never true Within the past 12 months, the food you bought just didn't last and you didn't have money to get more. Never true Alcohol Use Screen (AUDIT-C) - V: Alcohol Screen: SCREEN FOR ALCOHOL (AUDIT-C) An alcohol screening test (AUDIT-C) was negative (score=0). 1. How often did you have a drink containing alcohol in the past year? Consider a drink to be a 12 ounce can or bottle of regular beer, 8 ounces of malt liquor, a 5 ounce glass of table wine, or a 1.5 ounce shot of liquor (like scotch, gin, or vodka). Never 2. How many drinks containing alcohol did you have on a typical day when you were drinking in the past year? Response not required due to responses to other questions. 3. How often did you have six or more drinks on one occasion in the past year? Response not required due to responses to other questions. /guillaume/ SHARON SHARMA LPN LICENSED PRACTICAL NURSE Signed: 03/20/2025 11:33 SHARON SHARMA [facility] March 20, 2025 11:12 AM PRIMARY CARE NOTE: LOCAL TITLE: PRIMARY CARE PROVIDER ESTABLISHED VISIT [facility] STANDARD TITLE: PRIMARY CARE NOTE DATE OF NOTE: MARCH 20, 2025@11:12 ENTRY DATE: MARCH 20, 2025@11:12:38 AUTHOR: СЕРГЕЙ MONDRAGON COSIGNER: URGENCY: STATUS: COMPLETED ESTABLISHED PATIENT [id number]: REASON FOR VISIT/CHIEF COMPLAINT: routine f.u chronic conditions HPI:pain controlled. doing well with PT . still has reduced ROM right shoulder. had reverse shoulder replacement 12 weeks ago. noted prominent right biceps muscle, likely partially toern miscel belly attacement. he will f.u with [facility] Rivas for further eval and imaging. he reports stable mood, denies SI/HI. no BP issues. deneis cp, sob, palpitations. 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 SOCIAL HISTORY: NICOTINE: Nicotine User: No ILLICIT DRUGS: No ETOH: denies ALLERGIES: AMOXICILLIN ALLERGY REVIEW: Allergy list reviewed and remains current. MEDICATION RECONCILIATION: I have reviewed the patient's medication list with the patient and/or his/her care-aoc aadc operations staff officer. Handwritten corrections, additions and/or deletions were made to the list. Corrected Outpatient Medication List was provided to the patient/caregiver. Active Outpatient Medications (including Supplies): Active Outpatient Medications Status 1) BUPROPION HCL 150MG 12HR SA TAB TAKE TWO TABLETS BY MOUTH ACTIVE ONCE A DAY SWALLOW WHOLE - DO NOT CRUSH OR CHEW. Indication: FOR DEPRESSION 2) FLUOXETINE HCL 40MG CAP TAKE ONE CAPSULE BY MOUTH ONCE A DAY ACTIVE Indication: FOR DEPRESSION 3) LAMOTRIGINE 200MG TAB TAKE ONE TABLET BY MOUTH ONCE A DAY ACTIVE Indication: FOR BIPOLAR DISORDER 4) LISINOPRIL 40MG TAB TAKE ONE TABLET BY MOUTH ONCE A DAY FOR ACTIVE HEART OR BLOOD PRESSURE REVIEW OF SYSTEMS: General: Normal No Fevers, Chills, Weight Loss, Weight Gain, Recent Illness. Ears, Nose, Mouth, Throat: Normal No new loss of hearing or tinnitus, no Dental issue, Difficulty swallowing, Vertigo. Eye: Normal No Trauma, Cataracts, Glaucoma, Blurred vision Cardiovascular: Normal No Chest pain, Dizziness, Palpitations. Respiratory: Normal No Cough, SOB, Hemoptysis, Epistaxis, Influenza symptoms, +PDD. PHYSICAL EXAMINATION: General appearance: VITALS (most recent, as listed in the electronic record): B/P: 115/75 (03/20/2025 11:08) Pulse: 76 (03/20/2025 11:08) Temperature: 97.5 F [36.4 C] (03/20/2025 11:08) Weight: 219 lb [99.34 kg] (03/20/2025 11:08) Height: 74 in [188.0 cm] (03/20/2025 11:08) BMI: 28.2 Pain: 4 (03/20/2025 11:08) (0-10 scale) General: pleasant, cooperative, well-developed, well-nourished, appropriately dressed and groomed ; in no acute distress. Ears, Nose, Mouth, Throat:NC/AT,MMM, no thyromegaly Eye:PERRL Cardiovascular:RRR, No m/r/g or clicks. Respiratory:Clear to auscultation bilaterally. No accessory muscle use. Respirations even and non-labored ABD/GI:soft, non-tender. BS + x 4. /EQUIPMENT VALIDATION ENGINEER: Deferred Lymph: No lymphadenopathy Extremities:No pedal edema. prominent muscle belly on right biceps area. 33 cm right versus 30 cm left upper arm circumeference . no warmth not TTP. Psych:Affect appropriate. Neuro: Oriented x3. Gait steady with normal stride. Hematology: Color good. No pallor. No ecchymosis or petechiae. Skin:No visualized abnormalities. DATA REVIEW: SLT - Lab Tests Selected Collection DT Specimen Test Name Result Units Ref Range 08/16/2024 12:40 BLOOD HGA1C 5.9 % 4.0 - 6.0 = TRIGLYCERIDE 147 mg/dL 08/16/2024 12:40 CHOLESTEROL 208 H mg/dL 08/16/2024 12:40 HDL(New) 65 mg/dL 08/16/2024 12:40 CALCULATED LDL 114 mg/dL 08/16/2024 12:40 = SODIUM 133 L mEq/L 08/16/2024 12:40 POTASSIUM [...] 12:40 EGFR (CKD-EPI 2020) 72.4 08/16/2024 12:40 = WBC 9.5 10*3/uL 08/16/2024 12:40 RBC 4.79 [...] 12:40 BASOPHILS, ABSOLUTE 0.04 10*3/uL 08/16/2024 12:40 = No PSA (LAST 10 5Y) EO data found = No TSH (2YR) EO data found = URIC ACID: No data available for: URIC ACID = B12 713 pg/mL 08/16/2024 12:40 = VITAMIN D, 25-HYDROXY 26.4 L ng/mL 08/16/2024 12:40 = INR: No INR EO data found = No URINALYSIS EO data found = Urine Microalbumin: CREATuF: 17.2 (08/16/24 12:47) = AMPHET/METHAMPHETAMINE Negative ng/mL 08/16/2024 12:47 BENZODIAZEPINES (STL) Negative ng/mL 08/16/2024 12:47 CANNABINOIDS Negative ng/mL 08/16/2024 12:47 COCAINE METABOLITES Negative ng/mL 08/16/2024 12:47 METHADONE Negative ng/mL 08/16/2024 12:47 OPIATES Negative ng/mL 08/16/2024 12:47 OXYCODONE (TTYLZ-AGX-ZJ) Negative ng/mL 08/16/2024 12:47 BUPRENORPHINE (STL-PB-MA) Negative 08/16/2024 12:47 FENTANYL (STL) Negative ng/mL 08/16/2024 12:47 CREATININE URINE/OTHERS 17.2 L mg/dL 08/16/2024 12:47 ETHANOL Negative mg/dL 08/16/2024 12:47 = Dilantin: ____ = Digoxin: No data available for: DIGOXIN = Chest x-ray: No data available for: CHEST 2 VIEWS PA&LAT = EK08/25/2024 11:57 Local Title: EKG CONSULT [facility] Standard Title: CARDIOLOGY DIAGNOSTIC STUDY CONSULT AUTHOR: CLINICAL,DEVICE PROXY SERVICE DOCUMENT IN [employer] [facility] SEE FULL REPORT IN [employer] [facility] SIGNATURE NOT REQUIRED SEE SIGNATURE IN [employer] [facility] ([place] EKG) AUTO-INSTRUMENT DIAGNOSIS Procedure: 74947 12 Lead ECG Release Status: Released Off-Line Verified Date Verified: Aug 25, 2024@11:57:12 36468.2 Ventricular Rate: 73 BPM 54820.3 Atrial Rate: 73 BPM 89928.4 P-R Interval: 150 ms 82549.5 QRS Duration: 90 ms 35379.6 Q-T Interval: 374 ms 70595 QTC Calculation(Bazett)412 ms 25687.12 Calculated P Windber: 61 degrees 47658.13 Calculated R Windber: 73 degrees 12098.14 Calculated T Windber: 46 degrees Normal sinus rhythm Normal ECG When compared with ECG of 02-JAN-2022 11:07, No significant change was found Administrative Closure: 08/25/2024 by: CLINICAL,DEVICE PROXY SERVICE < THE ABOVE NOTE IS UNSIGNED > - DRAFT COPY * DRAFT COPY * DRAFT COPY * DRAFT COPY * DRAFT COPY * DRAFT COPY - Result: Acceptable Follow-up Action: Data results reviewed with patient ASSESSMENT/PLAN: #bipolar d.o ,stable mood, managed by . 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 now is dong well after reverse shoulder arhtoplasty 12 weeks ago.doing well with rehab but possible torn biceps muscle belly . will f.u with [facility]. cont PT #HTN stable , cpm. #h/o seizure d.o off keppra and no breakthrough seizure reported. # knee pain. stable monitor RETURN TO CLINIC:9-12 mo Return to Clinic order placed SUMMARY STATEMENT: Plan of care has been discussed with including expected therapeutic benefits and potential side effects of prescribed medication and treatments. verbalizes understanding and is in agreement with the plan of care. Patient was instructed to keep all scheduled appointments and contact dress fitter for any additional problems. PREVENTION & SCREENING: ALCOHOL: Clinical Reminder not due now or within a month BLOOD PRESSURE: Clinical Reminder not due now or within a month HEMOGLOBIN A1C: Clinical Reminder not due now or within a month /es/ СЕРГЕЙ MONDRAGON MD Signed: 03/20/2025 11:41 СЕРГЕЙ MONDRAGON [facility]
--- OUTSIDE RECORDS SUMMARY | 2025-04-19 03:20 | XMS_ITS ---
Author Organization [facility] Address [address] [place] [address] Care Team Providers Care Cabinetmaker Supervisor Name Role Phone Sami Barrios Unavailable [phone] ALLERGIES Allergen (clinical drug ingredient) Drug/Non Drug Allergy documented on EMR Reaction Allergy Type Onset Date Status amoxicillin Amoxicillin Unknown Drug Allergy Act inder Flexeril Unknown Drug Allergy Active RESULTS Component Value Reference Range Notes X ray : Shoulder 4 views R, AP, Grashey, Outlet, Axillary Reviewed date:06/09/2025 01:05:39 PM Interpretation: Performing Lab: Notes/Report: REASON FOR VISIT 22 weeks s/p Right Shoulder Revision Reverse TSA/antibiotic spacer removal; I & D ( DOS 11/17/24/11-18-24) MEDICATIONS Medication SIG (Take, Route, Frequency, Duration) Notes Start Date End Date Status Abilify Unknown PROzac Unknown Percocet 5-325 MG 1 tablet as needed Orally every 6 hours as needed for pain for 7 days 10/18/2024 Unknown Lexapro Unknown Mobic 15 MG 1 tablet Orally Once a day for 30 day(s) 04/17/2020 Unknown Percocet 5-325 MG 1 tablet as needed Orally every 4 hrs prn pain for 7 days 12/05/2024 Unknown Ketorolac Tromethamine 10 MG 1 tablet with food or milk as needed Orally every 8 hrs for 4 day(s) 04/19/2025 Active Ketorolac Tromethamine 10 MG 1 tablet with food or milk as needed Orally three times a day for 4 days 09/30/2024 Unknown HYDROcodone-Acetaminophen 5-325 MG 1 tablet as needed Orally every 6 hrs for 7 days 09/26/2024 Unknown HYDROcodone-Acetaminophen 5-325 MG 1 tablet as needed Orally every 8 hrs prn for 8 days 10/06/2024 Unknown Ketorolac Tromethamine 10 MG 1 tablet with food or milk as needed Orally every 8 hrs for 4 day(s) 11/22/2024 Unknown Keppra Unknown Percocet 10-325 MG 1 tablet as needed Orally every 4 hours PRN pain for 7 days 11/24/2024 Unknown [place] Unknown Lisinopril Unknown hydrOXYzine Pamoate 50 MG 1 capsule 3 ti mes daily orally tid for 10 days Active CeleBREX 100 MG 1 capsule with food Orally Once a day for 30 days Active lamoTRIgine Unknown traMADol HCl 50 MG 1 tablet as needed Orally every 8 hrs as needed for pain for 10 days 01/05/2025 Active buPROPion HCl Unknow n VITAL SIGNS BMI 27.25 kg/m2 04/19/2025 Height 75 in 04/19/2025 Weight 218 lbs 04/19/2025 Encounters Encounter Location Date Provider Diagnosis [facility] [place] [address] [place] [address] 04/19/2025 Sami Barrios Right shoulder pain M25.511 ASSESSMENTS Encounter Date Diagnosis Assessment Notes Treatment Notes Treatment Clinical Notes Section Notes 04/19/2025 Right shoulder pain (ICD-10 - M25.511) 04/19/2025 America Brizuela is in a difficult situation overall. He has been making progress with physical therapy despite the occasional anterior shoulder pain. He fell recently and cause increased degree of pain. His implant does not show any of loosening or fracture. The nature of the implant remains anteverted which may be contributing to some of his anterior shoulder pain at baseline but likely not related to the increase in pain after his fall. I recommended a course of Toradol to help with his acute pain from the fall and decrease some of his inflammatory pain. I recommend him icing it and holding off on therapy for the remainder of the week to let it cool down. I think he will get back to where he was at previously. We talked that if he continues to have anterior shoulder pain over the next couple of months and does not feel like he is getting to where he wants to be down the road we may have him get a 2nd opinion at [facility] to see if there is anything that they would recommend with regards to the implant positioning on the glenoid side. 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 I will see him back at his regularly scheduled follow-up appointment in a few months. He will let me know if this is not helping. PLAN OF TREATMENT Medication Medication Name Sig Start Date Stop Date Notes Ketorolac Tromethamine 10 MG 1 tablet th food or milk as needed Orally every 8 hrs for 4 day(s) 04/19/2025 Next Appt Details Follow Up: 2 Months, Reason: Progress Notes * Examination Category Sub-Category Detail Notes Category Not es Right Shoulder The patient is alert and oriented without obvious signs of distress. On evaluation of the shoulder, there is a well-healed prior incision. No evidence of wound dehiscence or erythema. There is no localized ecchymosis or soft tissue swelling. There is no tenderness to palpation over the SC joint, clavicle, AC joint or acromion. There is mild -moderate tenderness to palpation over the anterior aspect of the shoulder and conjoint tendon primarily. ROM is as follows: passive abduction: 110 degrees, active abduction 100 degrees, passive forward elevation 120 degrees, active forward elevation 100 degrees, external rotation 10 degrees, internal rotation to T12. Strength is 5-/5 in abduction, 5-/5 in forward elevation, and 4/5 in external rotation. Belly press and lift off maneuvers do exhibit some weakness. The upper extremity is NVI distally including intact function of the axillary nerve. History and Physical Notes * HPI (History of Present Illness) Category Sub-Category Detail Notes Category Not es . Gelacio returns n ow approximately 5 and half months out from his right shoulder revision reverse arthroplasty. He was doing better in therapy was making good progress until he went on vacation to [place]. He had a monkey climb on his arm which caused him pain and then subsequently, a week ago, slipped on wet ground and landed directly on the right arm. Since his fall he has been a lot more sore and has felt like his progress with therapy has been slowed. His pain is primarily still over the anterolateral and anterior aspect of the shoulder but it is worse now. His range of motion is more difficult to obtain with this pain. He has not been using any anti-inflammatories or ice.
--- OUTSIDE RECORDS SUMMARY | 2025-05-15 06:00 | XMS_ITS ---
Author Organization [facility], Address [address] [place] [address] Care Team Providers Care Licensed Sales Producer Name Role Phone Sami Barrios Unavailable [phone] REASON FOR VISIT Right Shoulder Encounters Encounter Location Date Provider Diagnosis [facility] [place] [address] [place] [address] 05/15/2025 Sami Barrios PLAN OF TREATMENT No Information
--- OUTSIDE RECORDS SUMMARY | 2025-06-05 02:23 | XMS_ITS ---
Author Organization [facility] Address [address] [place] [address] Care Team Providers Care Inspector Repairer Sandstone Name Role Phone Sami Barrios Unavailable [phone] REASON FOR VISIT Right Knee Encounters Encounter Location Date Provider Diagnosis . [facility] [place] [address] [place] [address] 06/05/2025 Sami Barrios PLAN OF TREATMENT No Information
--- OUTSIDE RECORDS SUMMARY | 2025-06-06 02:20 | XMS_ITS ---
Author Organization [facility], Address [address] [place] [address] Care Team Providers Care Councilor Name Role Phone Sami Barrios Unavailable [phone] ALLERGIES Allergen (clinical drug ingredient) Drug/Non Drug Allergy documented on EMR Reaction Allergy Type Onset Date Status amoxicillin Amoxicillin Unknown Drug Allergy Act inder Flexeril Unknown Drug Allergy Active REASON FOR VISIT weeks s/p Right Shoulder Revision Reverse TSA/antibiotic spacer removal; I & D ( DOS 11/17/24/-) MEDICATIONS Medication SIG (Take, Route, Frequency, Duration) Notes Start Date End Date Status Mobic 15 MG 1 tablet Orally Once a day for 30 day(s) 04/17/2020 Unknown Percocet 5-325 MG 1 tablet as needed Orally every 6 hours as needed for pain for 7 days 10/18/2024 Unknown Lexapro Unknown PROzac Unknown Abilify Unknown HYDROcodone-Acetaminophen 5-325 MG 1 tablet as needed Orally every 8 hrs prn for 8 days 10/06/2024 Unknown Ketorolac Tromethamine 10 MG 1 tablet with food or milk as needed Orally three times a day for 4 days 09/30/2024 Unknown Percocet 10-325 MG 1 tablet as needed Orally every 4 hours PRN pain for 7 days 11/24/2024 Unknown HYDROcodone-Acetaminophen 5-325 MG 1 tablet as needed Orally every 6 hrs for 7 days 09/26/2024 Unknown Percocet 5-325 MG 1 tablet as needed Orally every 4 hrs prn pain for 7 days 12/05/2024 Unknown [place] Unknown buPROPion HCl Unknow n Ketorolac Tromethamine 10 MG 1 tablet with food or milk as needed Orally every 8 hrs for 4 day(s) 11/22/2024 Unknown Keppra Unknown Lisinopril Unknown Ketorolac Tromethamine 10 MG 1 tablet with food or milk as needed Orally every 8 hrs for 4 day(s) 04/19/2025 Active traMADol HCl 50 MG 1 tablet as needed Orally every 8 hrs as needed for pain for 10 days 01/05/2025 Active lamoTRIgine Unknown hydrOXYzine Pamoate 50 MG 1 capsule 3 ti mes daily orally tid for 10 days Active CeleBREX 100 MG 1 capsule with food Orally Once a day for 30 days Active VITAL SIGNS BMI 27.25 kg/m2 06/06/2025 Height 75 in 06/06/2025 Weight 218 lbs 06/06/2025 Encounters Encounter Location Date Provider Diagnosis [facility] [place] [address] [place] [address] 06/06/2025 Sami Barrios Orthopedic aftercar e Z47.89 ASSESSMENTS Encounter Date Diagnosis Assessment Notes Treatment Notes Treatment Clinical Notes Section Notes 06/06/2025 Orthopedic aftercare (ICD-10 - Z47.89) PLAN OF TREATMENT No Information
--- OUTSIDE RECORDS SUMMARY | 2025-06-06 02:20 | XMS_ITS ---
Author Organization [facility] Address [address] [place] [address] Care Team Providers Care Water Purifier Operator Name Role Phone Sami Barrios Unavailable [phone] ALLERGIES Allergen (clinical drug ingredient) Drug/Non Drug Allergy documented on EMR Reaction Allergy Type Onset Date Status amoxicillin Amoxicillin Unknown Drug Allergy Act inder Flexeril Unknown Drug Allergy Active RESULTS Component Value Reference Range Notes X ray : Shoulder 4 views R, AP, Grashey, Outlet, Axillary Reviewed date:06/07/2025 08:34:22 AM Interpretation: Performing Lab: Notes/Report: REASON FOR VISIT 26 weeks s/p Right Shoulder Revision Reverse TSA/antibiotic spacer removal; I & D ( DOS 11/17/24/11-18-24) MEDICATIONS Medication SIG (Take, Route, Frequency, Duration) Notes Start Date End Date Status lamoTRIgine Unknown buPROPion HCl Unknow n traMADol HCl 50 MG 1 tablet as needed Orally every 8 hrs as needed for pain for 10 days 01/05/2025 Active Ketorolac Tromethamine 10 MG 1 tablet with food or milk as needed Orally every 8 hrs for 4 day(s) 04/19/2025 Active hydrOXYzine Pamoate 50 MG 1 capsule 3 ti mes daily orally tid for 10 days Active Lexapro Unknown Abilify Unknown CeleBREX 100 MG 1 capsule with food Orally Once a day for 30 days Active Bactrim DS 800-160 MG 1 tablet Orally Tw ice a day for 7 days 06/06/2025 Active PROzac Unknown Percocet 5-325 MG 1 tablet as needed Orally every 6 hours as needed for pain for 7 days 10/18/2024 Unknown Mobic 15 MG 1 tablet Orally Once a day for 30 day(s) 04/17/2020 Unknown Ketorolac Tromethamine 10 MG 1 tablet with food or milk as needed Orally three times a day for 4 days 09/30/2024 Unknown HYDROcodone-Acetaminophen 5-325 MG 1 tablet as needed Orally every 8 hrs prn for 8 days 10/06/2024 Unknown HYDROcodone-Acetaminophen 5-325 MG 1 tablet as needed Orally every 6 hrs for 7 days 09/26/2024 Unknown Lisinopril Unknown Percocet 5-325 MG 1 tablet as needed Orally every 4 hrs prn pain for 7 days 12/05/2024 Unknown Ketorolac Tromethamine 10 MG 1 tablet with food or milk as needed Orally every 8 hrs for 4 day(s) 11/22/2024 Unknown Percocet 10-325 MG 1 tablet as needed Orally every 4 hours PRN pain for 7 days 11/24/2024 Unknown Keppra Unknown [place] Unknown VITAL SIGNS BMI 27.25 kg/m2 06/06/2025 Height 75 in 06/06/2025 Weight 218 lbs 06/06/2025 Encounters Encounter Location Date Provider Diagnosis [facility] [place] [address] [place] [address] 06/06/2025 Sami Barrios Orthopedic aftercare Z47.89 ; 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 We had a long discussion today regarding next steps. He continues to have anterior shoulder pain which is likely related to the anteversion of his glenoid component. This is secondary to the significant degree of anterior bone loss he had at the time of his prior surgery. At this time he may need to consider a repeat revision of the shoulder. I would like to get a 2nd opinion for him at [facility] regarding whether not he needs a cortical allograft to build up the anterior wall the glenoid in order to preserve a bit more glenoid bone and prevent medialization of the glenoid with eccentric reaming posteriorly. I will reach out to Dr. Momin at [facility] and coordinate a consultation with her. We will then be able to determine the best next step for him with regards to his shoulder. 06/06/2025 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) 06/06/2025 Pain, joint, shoulder, right (ICD-10 - M25.511) 06/06/2025 Infection of skin of knee (ICD-10 - L08.9) he appears to have had poison frannie over his right knee posteriorly. He states that more recently has been starting to drain some purulence in the region of the prior poison frannie. It does not look grossly infected to me today but given his multiple prosthetic replacements I placed him on Bactrim just to be safe and prevent any spread of infection. I recommended follow-up with his primary care for this issue. PLAN OF TREATMENT Medication Medication Name Sig Start Date Stop Date Notes Bactrim DS 800-160 MG 1 tablet Orally Tw ice a day for 7 days 06/06/2025 Treatment Notes Assessment Notes Orthopedic aftercare Corwin is now abou t 7 months out from his revision reverse total shoulder arthroplasty on the right side. We had a long discussion today regarding next steps. He continues to have anterior shoulder pain which is likely related to the anteversion of his glenoid component. This is secondary to the significant degree of anterior bone loss he had at the time of his prior surgery. At this time he may need to consider a repeat revision of the shoulder. I would like to get a 2nd opinion for him at [facility] regarding whether not he needs a cortical allograft to build up the anterior wall the glenoid in order to preserve a bit more glenoid bone and prevent medialization of the glenoid with eccentric reaming posteriorly. I will reach out to Dr. Momin at [facility] and coordinate a consultation with her. We will then be able to determine the best next step for him with regards to his shoulder. Infection of skin of knee he appears to have had poison frannie over his right knee posteriorly. He states that more recently has been starting to drain some purulence in the region of the prior poison frannie. It does not look grossly infected to me today but given his multiple prosthetic replacements I placed him on Bactrim just to be safe and prevent any spread of infection. I recommended follow-up with his primary care for this issue. Progress Notes * Examination Category Sub-Category Detail [...] Sub-Category Detail Notes Category Not es . Corwin returns today almost 7 months out from his revision reverse total shoulder on the right side. He did take multiple falls moving his lawn over the last week or so. His incision is still intact. He still has pain mostly over the anterior aspect of the shoulder. It does not appear the falls have necessarily altered anything with regards to the appearance of his shoulder. He does feel like his range of motion has gotten slightly worse actively due to the discomfort. His passive range of motion has been maintained with therapy.
--- OUTSIDE RECORDS SUMMARY | 2025-06-06 09:24 | XMS_ITS ---
Author Organization [facility] Address [address] [place] [address] Care Team Providers Care Door Frame Assembler Machine Name Role Phone Sami Barrios Unavailable [phone] REASON FOR VISIT Referral MEDICATIONS Medication SIG (Take, Route, Frequency, Duration) Notes Start Date End Date Status Bactrim DS 800-160 MG 1 tablet Orally Tw ice a day for 7 days 06/06/2025 Active PROzac Unknown Abilify Unknown Lexapro Unknown Ketorolac Tromethamine 10 MG 1 tablet with food or milk as needed Orally every 8 hrs for 4 day(s) 06/08/2025 Active Mobic 15 MG 1 tablet Orally Once a day for 30 day(s) 04/17/2020 Unknown Percocet 5-325 MG 1 tablet as needed Orally every 6 hours as needed for pain for 7 days 10/18/2024 Unknown HYDROcodone-Acetaminophen 5-325 MG 1 tablet as needed Orally every 8 hrs prn for 8 days 10/06/2024 Unknown Ketorolac Tromethamine 10 MG 1 tablet with food or milk as needed Orally three times a day for 4 days 09/30/2024 Unknown HYDROcodone-Acetaminophen 5-325 MG 1 tablet as needed Orally every 6 hrs for 7 days 09/26/2024 Unknown Ketorolac Tromethamine 10 MG 1 tablet with food or milk as needed Orally every 8 hrs for 4 day(s) 11/22/2024 Unknown Keppra Unknown Lisinopril Unknown Percocet 5-325 MG 1 tablet as needed Orally every 4 hrs prn pain for 7 days 12/05/2024 Unknown Percocet 10-325 MG 1 tablet as needed Orally every 4 hours PRN pain for 7 days 11/24/2024 Unknown [place] Unknown buPROPion HCl Unknow n lamoTRIgine Unknown Ketorolac Tromethamine 10 MG 1 tablet with food or milk as needed Orally every 8 hrs for 4 day(s) 04/19/2025 Active traMADol HCl 50 MG 1 tablet as needed Orally every 8 hrs as needed for pain for 10 days 01/05/2025 Active hydrOXYzine Pamoate 50 MG 1 capsule 3 ti mes daily orally tid for 10 days Active CeleBREX 100 MG 1 capsule with food Orally Once a day for 30 days Active Encounters Encounter Location Date Provider Diagnosis [facility] [place] [address] [facility] [address] [place] [address] 06/06/2025 Sami Barrios PLAN OF TREATMENT Medication Medication Name Sig Start Date Stop Date Notes Ketorolac Tromethamine 10 MG 1 tablet wi th food or milk as needed Orally every 8 hrs for 4 day(s) 06/08/2025
--- OUTSIDE RECORDS SUMMARY | 2025-06-08 03:31 | XMS_ITS ---
Author Organization [facility] , Address [address] [place] [address] Care Team Providers Care Page Technician Name Role Phone Sami Barrios Unavailable [phone] REASON FOR VISIT Appointment Encounters Encounter Location Date Provider Diagnosis [facility] [place] [address] [place] [address] 06/08/2025 Sami Barrios PLAN OF TREATMENT No Information
--- OUTSIDE RECORDS SUMMARY | 2025-06-08 04:42 | XMS_ITS ---
Author Name [facility] Organization [facility] [place] Address [address] [place] [address] Care Team Providers Care Barrel Dedenting Machine Operator Name Role Phone СЕРГЕЙ MONDRAGON Primary Care [...] section includes the information on record at [place] for the Encounter. Date/Time Encounter Type Encounter Description Reason Pro vider Source Jun 08, 2025 10:42 AM Outpatient Encounter [facility] Encounter Template Text not used by [place] Plan of Treatment: Future Appointments (+ 6 months) and Future Tests (+/- 45 days) The Plan of Treatment section includes future care activities for the patient from all [place] treatmentfacilities. This section includes future appointments and [...] of theEncounter. The data comes from all [place] treatment facilities. Test Date/Time Test Type Test Details Facility Name Jun 08, 2025 10:54 AM Consult Order [facility] Cons Technical Business Analyst's Choice [facility] Social History: Smoking Status (Most current) and Tobacco Use (All prior to encounter date) This section includes the most current, and the historical, smoking and tobacco- related health factors from the [place] facility where the Encounter took place. Current Smoking Status This section includes the most current smoking, or tobacco-related health factor, from the [place] facility where the Encounter took place. Date/Time Current Smoking Status Comment Facil ity Oct 23, 2023 02:59 PM [place]-TO[place] NEVER USED [facility] Tobacco Use History This section includes a history of the smoking, or tobacco-related health factors, that were collected on or before the date of the Encounter. The data comes from the [facility] where the Encounter took place. Date/Time Smoking Status/Tobacco Use Comment F acility Dec 22, 2018 10:07 AM [place]TO[place] NEVER USED [facility] Encounter Notes: All associated encounter notes This section contains the clinical notes associated to the Encounter. Date/Time Encounter Note(s) Provider Source Jun 08, 2025 10:42 AM ADMINISTRATIVE NOT E: LOCAL TITLE: ADMINISTRATIVE [facility]ITY [facility]ARE REQUEST [facility] STANDARD TITLE: ADMINISTRATIVE NOTE DATE OF NOTE: JUN 08, 2025@10:42 ENTRY DATE: JUN 08, 2025@10:42:49 AUTHOR: CARLOS BAILEY EXP COSIGNER: URGENCY: STATUS: COMPLETED Received call from stating he might need a revision surgery per Dr. Barrios who orginially did his surgery for his right shoulder at [facility]. Sophie Person referred to Dr. Karen Momin at [facility] and he has an upcoming appt to see her on 06/14/25. [place] needs a new orthopedic referral for his shoulder and informed vet to reach out to his pcp checking to see if a consult can be submitted before attending his appt on 06/14/25. /guillaume/ CARLOS BAILEY ADVANCED RETAIL EQUIPMENT ASSOCIATE Signed: 06/08/2025 10:45 Receipt Acknowledged By: 06/08/2025 10:55 /guillaume/ [facility]- Advanced Practice Nurse, Orthopedics CARLOS BAILEY [facility]
--- OUTSIDE RECORDS SUMMARY | 2025-06-12 02:18 | XMS_ITS | Encounter Summary ---
Author Name [facility] [place] [place] [facility] [place] Address [address] [place] [address] Care Team Providers Care Creel Clerk Name Role Phone СЕРГЕЙ MONDRAGON Primary Care Provider Fam leung Insurance Providers: All historical and current [...] section includes the information on record at [place] for the Encounter. Date/Time Encounter Type Encounter Description Reason Provider Source Jun 12, 2025 08:18 AM Outpatient Encounter COMMUNITY CARE CONSULT SELENE SAUL Encounter Template Text not used by [place] Plan of Treatment: Future Appointments (+ 6 months) and Future Tests (+/- 45 days) The Plan of Treatment section includes future care activities for the patient from all [place] treatmentfacilities. This section includes future appointments and future orders which are active, pending or scheduled. Future Appointments This section includes appointments that were scheduled to occur 6 months from the date of the Encounter, up to a maximum of 20 appointments. The data comes from all [place] treatment facilities. Appointment Date/Time Appointment Type Appointme nt Facility Name Jun 14, 2025 11:00 AM AMBULATORY - SURGERY [facility] Jun 29, 2025 10:30 AM AMBULATORY - MEDICINE . [facility] Jul 04, 2025 01:00 PM [facility] Aug 21, 2025 08:00 AM AMBULATORY - NONE [facility] Aug 22, 2025 08:00 AM [facility]ATORY - NONE [facility] Sep 06, 2025 02:40 PM AMBULATORY - NONE [facility] Social History: Smoking Status (Most current) and Tobacco Use (All prior to encounter date) This section includes the most current, and the historical, smoking and tobacco- related health factors from the [place] facility where the Encounter took place. Current Smoking Status This section includes the most current smoking, or tobacco-related health factor, from the [place] facility where the Encounter took place. Date/Time Current Smoking Status Comment Facil ity Oct 23, 2023 02:59 PM [place]-TO[place]ACCO NEVER USED [facility] Tobacco Use History This section includes a history of the smoking, or tobacco-related health factors, that were collected on or before the date of the Encounter. The data comes from the [place] facility where the Encounter took place. Date/Time Smoking Status/Tobacco Use Comment F acility Dec 22, 2018 10:07 AM [place]-TO[place] NEVER US[place] [facility] Encounter Notes: All associated encounter notes This section contains the clinical notes associated to the Encounter. Date/Time Encounter Note(s) Provider Source Jun 12, 2025 08:18 AM NONVA NOTE: LOCAL TITLE: COMMUNITY CARE-CARE COORDINATION PLAN NOTE [address] STANDARD TITLE: NONVA NOTE DATE OF NOTE: JUN 12, 2025@08:18 ENTRY DATE: JUN 12, 2025@08:19:01 AUTHOR: SELENE SAUL EXP COSIGNER: URGENCY: STATUS: COMPLETED COMMUNITY CARE-CARE COORDINATION PLAN NOTE 657 [address] Has ADDENDA Community Care Consult: ortho surgery Consult No: [id number] [facility] Referral #: Chief Complaint: right shoulder pain Patient Admitted? No Level of Care Coordination Moderate Care Coordination was determined from: Chart Review Facility Community Care Office Contact Care Coordination Point of Contact: selene fish rn Phone Number: [phone] Services: Basic Care Coordination Services Monitoring and coordination of Rehab/PT Services Direct communication to referring provider Care management, if appropriate Plan: evaluation and treatment Will follow until consult is scheduled. Will navigate services regarding protocol; monitoring and coordinating CC appt, monitor disease process, report significant findings, communicate with monthly for complex coordination and quarterly for moderate. Will transition care to the referring provider after community care EOC is completed. /guillaume/ SELENE SAUL RN MSN REGISTERED NURSE Signed: 06/12/2025 08:20 08/29/2025 ADDENDUM STATUS: COMPLETED Care Coordination Follow Up Level of Care Coordination Moderate Care Coordination was determined from: Chart Review Services: Basic Care Coordination Services Monitoring and coordination of Rehab/PT Services Direct communication to referring provider Care management, if appropriate Plan: retrieved note, reviewed, scan and will follow up at least quarterly for any cc needs (OV 06/14/25) right shoulder pain with limited ROM;progressively has worsened past 3 months. Imaging xray of right shoulder; demonstrate a right reverse shoulder arthroplasty. Humeral implant is well-positioned. No sign of implant loosening or failure. Glenoid base plate and glenosphere are well fixed into the glenoid no evidence of loosening or failure but base plate is placed in significant anteversion. Joint reduced. PLAN Chronic right shoulder pain;cc provider discussed treatment options to try to improve pain and rom;Plan for revision and temporary conversion hemiarthroplasty. irrigation and debridement of right shoulder. CC provider discussed non surgerical treatment of managing symptoms. pt wants surgery. Planned for August. CT right Shoulder : CT SHOULDER RIGHT WO CONTRAST HISTORY: Shoulder pain. TECHNIQUE: Multidetector CT performed through the right shoulder without contrast. Coronal and sagittal reconstructions made available. Comparison is made to 06/14/2025. 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 There is unchanged anterior angulation of the glenosphere, measuring approximately 27 degrees from the underlying glenoid. The central peg protrudes out the posterior scapula with some adjacent heterotopic ossification. No discrete fracture. There are lucencies/osteolysis at the superior glenoid/base of coracoid dimension bone quality. Heterotopic ossification about the acromioclavicular joint. Moderate subscapularis and infraspinatus atrophy. No significant axillary adenopathy. No lung mass within the visualized right lung. IMPRESSION: 1. 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
--- OUTSIDE RECORDS SUMMARY | 2025-06-14 03:50 | XMS_ITS ---
Author Organization [facility] Address [address] [place] [address] Care Team Providers Care Windows 7 Deployment Lead Name Role Phone Sami Barrios Unavailable [phone] REASON FOR VISIT weeks s/p Right Shoulder Revision Reverse TSA/antibiotic spacer removal; I & D ( DOS 11/17/24/11-18-24) Encounters Encounter Location Date Provider Diagnosis [facility] [place] [address] [place] [address] 06/14/2025 Sami Barrios PLAN OF TREATMENT No Information
--- OUTSIDE RECORDS SUMMARY | 2025-06-14 06:44 | XMS_ITS ---
Author Organization [facility] Address [address] [place] [address] Care Team Providers Care Intensive Care Nurse Name Role Phone Sami Barrios Unavailable [phone] REASON FOR VISIT to talk to Dr. Barrios Encounters Encounter Location Date Provider Diagnosis . [facility] [place] [address] [place] [address] 06/14/2025 Sami Barrios PLAN OF TREATMENT No Information
--- OUTSIDE RECORDS SUMMARY | 2025-07-12 03:16 | XMS_ITS ---
Author Organization [facility], Address [address] [place] [address] Care Team Providers Care Shoe Shanker Name Role Phone Sami Barrios Unavailable [phone] REASON FOR VISIT Surgery Encounters Encounter Location Date Provider Diagnosis [facility] [place] [address] [place] [address] 07/12/2025 Sami Barrios PLAN OF TREATMENT No Information
--- OUTSIDE RECORDS SUMMARY | 2025-08-21 05:08 | XMS_ITS | Encounter Summary ---
Author Name [facility] [place] Organization [facility] [place] Address [address] [place] [address] Care Team Providers Care Adult Basic Education Manager Name Role Phone СЕРГЕЙ MONDRAGON Primary [...] Encounter Type Encounter Description Reason Provider Source Aug 21, 2025 11:08 AM Outpatient Encounter COMMUNITY CARE CONSULT WILI PADRON Encounter Template Text not used by [place] Plan of Treatment: Future Appointments (+ 6 [...] 20 appointments. The data comes from all [place] treatment facilities. Appointment Date/Time Appointment Type Appointme nt Facility Name Aug 22, 2025 08:00 AM AMBULATORY - NONE [facility] Sep 06, 2025 02:40 PM AMBULATORY - NONE [facility] Active, Pending, and Scheduled Orders This section [...] Date/Time Test Type Test Details Facility Name Aug 18, 2025 04:58 PM Consult Order COMMUNITY CARE-[facility] INFECTIOUS DISEASE Cons [facility] Aug 18, 2025 04:58 PM Consult Order COMMUNITY [facility] SKILLED HOME CARE [facility] Aug 18, 2025 04:58 PM Consult Order [facility] HOME INFUSION THERAPY [facility] Social History: Smoking Status (Most current) [...] Sherry duque Oct 23, 2023 02:59 PM [place]-TOBAC[place] NEVER USED [facility] Tobacco Use History This section includes a history of the smoking, or tobacco-related health factors, that were collected on or before the date of the Encounter. The data comes from the [place] facility where the Encounter took place. Date/Time Smoking Status/Tobacco Use Comment Pavithra menjivar Dec 22, 2018 10:07 AM [place]-TOBACCO NEVER USED [facility] Encounter Notes: All associated encounter notes This section contains the clinical notes associated to the Encounter. Date/Time Encounter Note(s) Provider Source Aug 21, 2025 11:09 AM NONVA NOTE: LOCAL TITLE: COMMUNITY CARE-CARE COORDINATION PLAN NOTE [address] [facility] STANDARD TITLE: NONVA NOTE DATE OF NOTE: AUG 21, 2025@11:09 ENTRY DATE: AUG 21, 2025@11:09:14 AUTHOR: WILI PADRON COSIGNER: URGENCY: STATUS: COMPLETED COMMUNITY CARE-CARE COORDINATION PLAN NOTE [address]57 [address] Has ADDENDA THE PATIENT HAS BEEN REFERRED TO THE FOLLOWING SERVICES HOME CARE SERVICES: Home Infusion Therapy Ceftriaxone 2 grams IV daily Daptomycin 700 mg IV daily End of treatment: 09/26/25 LABS: Weekly CBC, CMP, CPK FAX LAB RESULTS TO: [phone] AND Attn: [facility] ID fellow [phone][facility] [place] 08/18/25 @ [facility] HOME CARE SERVICE FUNDING: [place]: [facility] Date service is projected to start: 08/21/25 Date service is projected to end: 09/26/25 DURATION OF CARE: 6 weeks HOME INFUSION THERAPY: HOME INFUSION 90 DAYS NAME OF AGENCY TO PROVIDE SERVICES: Agency: [facility] Address: [address] [place] [address] [place] [address] Email: [email or web address] CCN: Region [email or web address] Contact: Cheryl [phone] *Please send all correspondence/orders to: SEDRICK HARDEN or [phone] Helpful phone numbers: Home Antibiotic therapy ordered and to be managed by: PLAN: New Services- Transition to Home Infusion Services. /guillaume/ JARROD VARELA, RN REGISTERED NURSE Signed: 08/21/2025 11:39 08/21/2025 ADDENDUM STATUS: COMPLETED Care Coordination Follow Up Level of Care Coordination Complex/Chronic Care Coordination was determined from: Phone call to [place]/Family/Caregiver Services: Moderate Care Coordination Services Case Management, if appropriate Direct communications with interdisciplinary team Plan: Referral for home infusion and skilled home healthcare following acute stay for infection to Rt shoulder hardware. Call placed to . Reporting he has done home infusion in the past, feels confident to do again, agrees with plan of care. [place] states he has spoken with Dr Harden office, wishes to follow up with Dr Harden for current course of antibiotics vs VA ID. Informed of agency assigned for home healthcare, agency will reach out to make appts. All questions answered, no further questions at time of call. [facility] contact information provided. Sent to [facility]. Referral documents and authorization sent to provider. Will follow for plan of care/clinical notes/SOC. Will f/u for any needs, at 30 days and end of episode of care. /guillaume/ JARROD VARELA, RN REGISTERED NURSE Signed: 08/21/2025 11:50 WILI PADRON [facility]
--- OUTSIDE RECORDS SUMMARY | 2025-08-21 05:59 | XMS_ITS | Encounter Summary ---
Author Name [facility] [place] Organization [facility] [place] Address [address] [place] [address] Care Team Providers Care Straight Cutter Name Role Phone СЕРГЕЙ MONDRAGON Primary Care [...] Description Reason Provider Source Aug 21, 2025 11:59 AM Outpatient Encounter COMMUNITY CARE CONSULT WILI PADRON Encounter Template Text not used by [place] [...] 20 appointments. The data comes from all [place] treatment facilities. Appointment Date/Time Appointment Type Appointme nt Facility Name Aug 22, 2025 08:00 AM AMBULATORY - NONE [facility] Sep 06, 2025 02:40 PM AMBULATORY - NONE [facility] Active, Pending, and Scheduled Orders This [...] 18, 2025 04:58 PM Consult Order COMMUNITY CARE-[facility] INFECTIOUS DISEASE Cons [place] [facility] Aug 18, 2025 04:58 PM Consult Order COMMUNITY [facility] CARE [facility] Cons [facility] Aug 18, 2025 04:58 PM Consult Order [facility] HOME INFUSION THERAPY [facility] Social History: Smoking Status (Most current) and [...] Sherry duque Oct 23, 2023 02:59 PM [place] US[place] [facility] Tobacco Use History This section includes a history of the smoking, or tobacco-related health factors, that were collected on or before the date of the Encounter. The data comes from the [place] facility where the Encounter took place. Date/Time Smoking Status/Tobacco Use Comment Pavithra menjivar Dec 22, 2018 10:07 AM [place] US[place] [facility] Encounter Notes: All associated encounter notes This section contains the clinical notes associated to the Encounter. Date/Time Encounter Note(s) Provider Source Aug 21, 2025 11:59 AM NONVA NOTE: LOCAL TITLE: COMMUNITY CARE-CARE COORDINATION PLAN NOTE [address] [facility] STANDARD TITLE: NONVA NOTE DATE OF NOTE: AUG 21, 2025@11:59 ENTRY DATE: AUG 21, 2025@11:59:58 AUTHOR: WILI PADRON EXP COSIGNER: URGENCY: STATUS: COMPLETED COMMUNITY CARE-CARE COORDINATION PLAN NOTE [address] Has ADDENDA THE PATIENT HAS BEEN REFERRED TO THE FOLLOWING SERVICES HOME CARE SERVICES: Community skilled home health care SN/WC, lab processing - in accordance with [facility] Standardized Episode of Care (SEOC) HOME CARE SERVICE FUNDING: [place]: [facility] NAME OF AGENCY TO PROVIDE CARE: SHERRIE JACKSON [address] [place], [address] DURATION OF CARE (Non-Hospice Services): 120 Days OR WHENEVER PATIENT GOALS ARE MET, WHICHEVER COMES FIRST Date service is projected to start: 08/22/25 (VA consults terminate automatically after 120 days) *Please send all correspondence/orders to be signed to: SEDRICK HARDEN or [phone] PLAN: New Services-Transition to Skilled Home Health Services. Helpful phone numbers: [facility] Business Applications Manager [facility] Email: [email or web address] /guillaume/ JARROD VARELA, RN REGISTERED NURSE Signed: 08/21/2025 12:07 08/21/2025 ADDENDUM STATUS: COMPLETED Care Coordination Follow Up Level of Care Coordination Complex/Chronic Care Coordination was determined from: Phone call to [place]/Family/Caregiver Services: Moderate Care Coordination Services Case Management, if appropriate Direct communications with interdisciplinary team Plan: Referral for home healthcare, SN and home infusion. Spoke with patient, agrees with plan of care. Informed of agency assigned, will contact him to schedule visits. Patient states he prefers to stay with current ID provider, Dr Harden. No further questions at time of call. [facility] contact information provided. Sent to [facility]. Referral documents and authorization sent to provider. Will follow for plan of care/clinical notes/SOC. Will f/u for any needs, at 30 days and end of episode of care. /guillaume/ JARROD VARELA, RN REGISTERED NURSE Signed: 08/21/2025 12:31 WILI PADRON [facility]
[2025-09-05 14:17] LABS: Hematocrit 35.7 % (42.0-52.0); Hemoglobin 11.7 g/dL (14.0-18.0); Immature Granulocyte Percent A 0.3 % (0-0.5); Lymphocytes Absolute Auto 2.72 K/mm3 (0.9-3.2); Mean Corpuscular HGB Conc 32.8 g/dl (32-36); Mean Corpuscular Hemoglobin 28.0 pg (26-34); Mean Corpuscular Volume 85.4 fl (80-100); Nucleated Red Blood Cells Absolute Auto 0.000 K/mm3 (0.0-0.012); Nucleated Red Blood Cells Perc 0.0 % (0.0-0.2); Platelet Count Result 379 k/mm3 (150-375); Red Blood Count 4.18 M/mm3 (4.6-6.20); White Blood Count 6.6 K/mm3 (4.5-10.0)
[2025-09-05 14:50] LABS: Alanine Aminotransferase 31 U/L (6-50); Albumin Level 4.2 g/dL (3.5-5.1); Alkaline Phosphatase 59 U/L (38-126); Anion Gap 9 mmol/L (4-12); Aspartate Amino Transferase 43 U/L (17-59); Bilirubin,Total 0.5 mg/dL (0.2-1.3); Blood Urea Nitrogen 12 mg/dL (9-20); Calcium 9.3 mg/dL (8.4-10.2); Carbon Dioxide 24 mmol/L (22-30); Chloride 101 mmol/L (98-107); Estimated Glomerular Filt Rate 56; Glucose 78 mg/dL (65-110); Potassium 3.8 mmol/L (3.4-5.0); Sodium 134 mmol/L (137-145); Total Protein 7.1 g/dL (6.3-8.2)
--- OUTSIDE RECORDS SUMMARY | 2025-09-05 15:27 | XMS_ITS | Continuity of Care Document ---
Author Name [facility] Organization [facility] Care Team Providers Care Cell Repairer Name Role Phone [facility] Unavailable Unavailable Problems Combined list of problems from Department of Defense and Veterans Affairs facilities. It does not include entries that were removed or entered in error. Problem Status Onset Date Problem Type Date of Resolution Comments Source Administrative Evaluation Services Inactive Condition Separati on assessment evaluation filled out, signed and copy given to patient along. DoD epididymitis left Active Condition cullen pportive care discussed. s/s of torsion discussed. If acutely worse, go to [facility] for evaluation. [facility] hypertension systemic Active Condition does well on medication; will rtc in 1 week for BP check since he has been out of medication for one week [facility] joint pain, localized in the knee Active Condition reinjury of previously repaired right knee--- no collateral laxity noted but suspect ACL/PCL or meniscus injury, posterior swelling, RTC after MRI to eval, pt has Naproxen to use prn. [facility] Tattoo Active Condition [facility] Patient Counseling: Inactive Condition D oD essential hypertension Active Condition pt to continue PHIL. Pt to have UA done. Will consider 2nd med if no improvement. [facility] patellofemoral syndrome Inactive Condition PATELLOFEMORAL SYNDROME [facility] Allergic Rhinitis (SCT [id number]) Active Condition [facility] Anxiety Active Condition [facility] Benign essential hypertension Active Condition [facility] Depression Active Condition 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 Seizure Active Condition [facility] Testicular hypofunction Active Condition [facility] Tremor Active Condition [facility] Diagnosis: ICD-10-CM T84.50XD Infect/inflm reaction due to unsp int joint prosth, subs Active Diagnosis [facility] Diagnosis: ICD-10-CM M25.511 Pain in right shoulder Active Diagnosis [facility] Diagnosis: ICD-10-CM F51.8 Oth sleep disord not due to a sub or known physiol cond Active Diagnosis [facility] Diagnosis: ICD-10-CM F11.90 Opioid use, unspecified, uncomplicated Active Diagnosis [facility] Diagnosis: ICD-10-CM M17.31 Unilateral post-traumatic osteoarthritis, right knee Active Diagnosis [facility] Diagnosis: ICD-10-CM Z11.1 Encounter for screening for respiratory tuberculosis Active Diagnosis [facility] Diagnosis: ICD-10-CM Z71.9 Counseling, unspecified Active Diagnosis 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 Active Diagnosis [facility] Diagnosis: ICD-10-CM R52 Pain, unspecified Active Diagnosis [facility] Diagnosis: ICD-10-CM F33.0 Major depressive disorder, recurrent, mild Active Diagnosis [facility] Diagnosis: ICD-10-CM S83.204A Oth tear of unsp meniscus, current injury, left knee, init Active Diagnosis [facility] Medications Combined list of outpatient medications from Department of Defense and Veterans Affairs facilities.Medications provided include 1) outpatient medications from the last 15 months, and 2) patient-reported medications. Medication Details Route Status Indication(s) Patie nt Instructions Prescription Expires Prescription Number Last Dispense Date Ordering Provider Order Date Order Qty Source ALPRAZOLAM 1MG TAB TAKE ONE TABLET BY MOUTH EVERY 2 WEEKS FOR PANIC DISORDER ORAL 09/17/2024 [id number] [facility] N BUPROPION HCL 150MG 12HR TAB,SA TAKE TWO TABLETS BY MOUTH ONCE A DAY FOR DEPRESSI ON SWALLOW WHOLE - DO NOT CRUSH OR CHEW. ORAL ACTIVE 01/06/2026 [id number] 5 ALPHONSE-KAHLIL DA SILVA ZOE 2024 180 [facility] N BUPROPION HCL 200MG 12HR TAB,SA TAKE ONE TABLET BY MOUTH ONCE A DAY FOR DEPRESSI ON SWALLOW WHOLE - DO NOT CRUSH OR CHEW. ORAL DISCONT INUED (EDIT) 05/24/2025 [id number] 4 ALPHONSE-KAHLIL DA SILVA ZOE 2023 90 [facility] CLONAZEPAM 0.5MG TAB TAKE ONE TABLET BY MOUTH QWEEKLY FOR ANXIETY MAY CAUSE DROWSINE SS. DO NOT DRINK ALCOHOL. ORAL 09/11/2024 [id number] [facility] Eamon DICLOFENAC NA 50MG/MISOPR OSTOL 200MCG TAB TAKE 1 TABLET BY MOUTH TWICE A DAY FOR OSTEOART HRITIS WITH FOOD ORAL 07/30/2024 [id number] 4 MONDRAGON,A RMIDA A [address] [facility] FLUOXETINE HCL 40MG CAP TAKE ONE CAPSULE BY MOUTH ONCE A DAY FOR DEPRESSI ON ORAL ACTIVE 01/06/2026 [id number] 5 [facility] FLUOXETINE HCL 40MG CAP TAKE ONE CAPSULE BY MOUTH ONCE A DAY FOR DEPRESSI ON ORAL DISCONT INUED (EDIT) 04/22/2025 [id number] 4 [facility] HYDROCODONE 10MG/ACETAM INOPHEN 325MG TAB TAKE 1 TABLET BY MOUTH ONCE A DAY NEEDED FOR SEVERE PAIN CAUTION: DO NOT EXCEED 4000MG PER DAY ACETAMIN OPHEN (APAP) FROM ALL MEDS. ORAL 07/24/2024 [id number] 4 MONDRAGON,A RMIDA A [address] [facility] HYDROCODONE 5MG/ACETAMI NOPHEN 325MG TAB TAKE 1 TABLET BY MOUTH EVERY 6 HOURS NEEDED FOR PAIN CAUTION: DO NOT EXCEED 4000MG PER DAY ACETAMIN OPHEN (APAP) FROM ALL MEDS. ORAL DISCONT INUED 07/20/2024 [id number] 4 MONDRAGON,A RMIDA A [address] [facility] HYDROCODONE 5MG/ACETAMI NOPHEN 325MG TAB TAKE 1 TABLET BY MOUTH EVERY 6 HOURS NEEDED FOR SEVERE PAIN CAUTIO N: DO NOT EXCEED 4000MG PER DAY ACETAMIN OPHEN (APAP) FROM ALL MEDS. ORAL 08/28/2024 [id number] 4 MONDRAGON,A RMIDA A [address] [facility] LAMOTRIGINE 200MG TAB TAKE ONE TABLET BY MOUTH ONCE A DAY FOR BIPOLAR DISORDER ORAL ACTIVE 01/06/2026 [id number] 5 LAISHABO-KAHLIL DA SILVA ZOE 2024 90 [facility] N LAMOTRIGINE 200MG TAB TAKE ONE-HALF TABLET BY MOUTH ONCE A DAY FOR MOOD OR SEIZURES ORAL DISCONT INUED (EDIT) 04/22/2025 [id number] 4 LAADEBO-KAHLIL DA SILVA ZOE 2023 45 [facility] N LISINOPRIL 40MG TAB TAKE ONE TABLET BY MOUTH ONCE A DAY FOR HEART OR BLOOD PRESSURE ORAL ACTIVE 02/23/2026 [id number] 5 MONDRAGON,A RMIDA A 2024 90 [facility] N LISINOPRIL 40MG TAB TAKE ONE TABLET BY MOUTH ONCE A DAY FOR HEART OR BLOOD PRESSURE ORAL DISCONT INUED 03/24/2025 [id number] 5 MONDRAGON,A RMIDA A 2023 90 [facility] N PREDNISONE 10MG TAB TAKE FOUR TABLETS BY MOUTH EVERY MORNING FOR 4 DAYS, THEN TAKE TWO TABLETS EVERY MORNING FOR 4 DAYS, THEN TAKE ONE TABLET EVERY MORNING FOR 4 DAYS TAKE WITH FOOD OR MILK. ORAL 09/03/2024 [id number] 4 MONDRAGON,A RMIDA A 2023 28 [facility] N PREDNISONE 10MG TAB TAKE FOUR TABLETS BY MOUTH EVERY MORNING FOR 3 DAYS, THEN TAKE TWO TABLETS EVERY MORNING FOR 3 DAYS, THEN TAKE ONE TABLET EVERY MORNING FOR 4 DAYS FOR INFLAMMA TION TAKE WITH FOOD OR MILK. ORAL 07/30/2024 [id number] 4 MONDRAGON,A RMIDA A [address] [facility] Allergies, Adverse Reactions, Alerts Combined list of allergies from Department of Defense and Veterans Affairs facilities. It does not include entries that were removed or entered in error. Substance Category Reaction Severity Reaction type Status Date Reported Comments Source AMOXICILLIN Propensity to adverse reactions to drug (finding) Seizure active 9 [facility] NO OUTPUT FOR NCID 121971 Drug allergy (disorder) active 8 [facility] Immunizations Combined list of available immunizations from the Department of Defense and Veterans Affairs facilities. Immunization Series Date Given Administered By Site Reaction Lot Number CVX Code Drug Nurse Consultant Status Comments Source INFLUENZA, SPLIT VIRUS, TRIVALENT, PF 1 2023 140 complet ed HISTORICA L INFORMATI ON - FROM OTHER [facility], [facility] INFLUENZA, MDCK, QUADRIVALENT, PF 1 2022 171 complet ed HISTORICA L INFORMATI ON - FROM OTHER [facility] INFLUENZA, UNSPECIFIED FORMULATION 2022 88 complet ed Completed Series, HISTORICA L INFORMATI ON - FROM PATIENT'S RECALL, [facility] COVID-19 (MODERNA), MRNA, LNP-S, BIVALENT, PF, 50 MCG/0.5 ML OR 25MCG/0.25 ML DOSE 1 2021 229 complet ed MOD; [id number]; 3 [facility] PNEUMOCOCCAL CONJUGATE PCV20, POLYSACCHARID E [id number] CONJUGATE, ADJUVANT, PF [address] [facility] INFLUENZA, MDCK, QUADRIVALENT, PF 1 2021 171 complet ed HISTORICA L INFORMATI ON - FROM OTHER [facility], [facility] COVID-19 (MODERNA), MRNA, LNP-S, PF, 100 MCG/0.5ML DOSE OR 50 MCG/0.25ML DOSE 3 2020 207 complet ed HISTORICA L INFORMATI ON - FROM OTHER [facility], [facility] INFLUENZA, SPLIT VIRUS, QUADRIVALENT, PF 1 2020 150 complet ed HISTORICA L INFORMATI ON - FROM OTHER [facility], [facility] COVID-19 (PFIZER), MRNA, LNP-S, PF, 30 MCG/0.3 ML DOSE 2 2020 208 complet ed [facility] COVID-19 (PFIZER), MRNA, LNP-S, PF, 30 MCG/0.3 ML DOSE 1 2020 208 complet ed [facility] INFLUENZA, INJECTABLE, QUADRIVALENT, PRESERVATIVE FREE [address] [facility] PNEUMOCOCCAL POLYSACCHARID E PPV23 [address] [facility] INFLUENZA, UNSPECIFIED FORMULATION 2018 88 complet ed [facility] TDAP 2018 [address] [facility] INFLUENZA, INJECTABLE, QUADRIVALENT, PRESERVATIVE FREE [address] [facility] INFLUENZA, MDCK, QUADRIVALENT, PF 1 2017 171 complet ed HISTORICA L INFORMATI ON - FROM OTHER REGISTRY, [facility] Results Combined list of recent chemistry, hematology and other laboratory results from Department of Defense and Veterans Affairs, ranging from 15 months to all on record, depending upon the facility. Order Name Results Value Reference Range Date Interpretation Specimen Comments Source URINE DRUG SCREEN (STL) ETHANOL [MASS/VOLU ME] IN URINE Negative mg/dL 0 - 20 08/16 Specimen Type: URINE Comment: The cut-off value for this test was laboratory developed and its performance characteris tics confirmed by the [facility] laboratory thru method comparison with reference laboratory and medication chart review. The laboratory is regulated under CLIA as qualified to perform high-comple xity testing. This test is used for clinical purposes in conjunction with other laboratory tests. Ordering Provider: ADARSH MONDRAGON Report Released Date/Time: Jul 29, 2024 12:50 PM Reporting Lab: [facility] [address] [facility] [phone] Performing Lab: [facility] [address] [facility] [phone] [facility] URINE DRUG SCREEN (STL) AMPHETAMIN E [PRESENCE] IN URINE BY SCREEN METHOD Negative ng/mL 08/16 Specimen Type: URINE Comment: The cut-off value for this test was laboratory developed and its performance characteris tics confirmed by the [facility] laboratory thru method comparison with reference laboratory and medication chart review. The laboratory is regulated under CLIA as qualified to perform high-comple xity testing. This test is used for clinical purposes in conjunction with other laboratory tests. Ordering Provider: ADARSH MONDRAGON A Report Released Date/Time: Jul 29, 2024 12:50 PM Reporting Lab: [facility] [address] [place] [phone] Performing Lab: [facility] [address] [place] [phone] [facility] URINE DRUG SCREEN (STL) BENZOYLECG ONINE [PRESENCE] IN URINE Negative ng/mL 08/16 Specimen Type: URINE Comment: The cut-off value for this test was laboratory developed and its performance characteris tics confirmed by the [facility] laboratory thru method comparison with reference laboratory and medication chart review. The laboratory is regulated under CLIA as qualified to perform high-comple xity testing. This test is used for clinical purposes in conjunction with other laboratory tests. Ordering Provider: ADARSH MONDRAGON A Report Released Date/Time: Jul 29, 2024 12:50 PM Reporting Lab: [facility] [address] [place] [phone] Performing Lab: [facility] [address] [place] [phone] [facility] URINE DRUG SCREEN (STL) BENZODIAZE PINES [PRESENCE] IN URINE BY SCREEN METHOD Negative ng/mL 08/16 Specimen Type: URINE Comment: The cut-off value for this test was laboratory developed and its performance characteris tics confirmed by the [facility] laboratory thru method comparison with reference laboratory and medication chart review. The laboratory is regulated under CLIA as qualified to perform high-comple xity testing. This test is used for clinical purposes in conjunction with other laboratory tests. Ordering Provider: ADARSH MONDRAGON A Report Released Date/Time: Jul 29, 2024 12:50 PM Reporting Lab: [facility] [address] [place] [phone] Performing Lab: [facility] [address] [facility] [phone] [facility] URINE DRUG SCREEN (STL) CANNABINOI DS [PRESENCE] IN URINE BY SCREEN METHOD Negative ng/mL 08/16 Specimen Type: URINE Comment: The cut-off value for this test was laboratory developed and its performance characteris tics confirmed by the [facility] laboratory thru method comparison with reference laboratory and medication chart review. The laboratory is regulated under CLIA as qualified to perform high-comple xity testing. This test is used for clinical purposes in conjunction with other laboratory tests. Ordering Provider: ADARSH MONDRAGON A Report Released Date/Time: Jul 29, 2024 12:50 PM Reporting Lab: [address] [phone] Performing Lab: [phone] [place] [address] URINE DRUG SCREEN (STL) METHADONE [PRESENCE] IN URINE Negative ng/mL 08/16 Specimen Type: URINE Comment: The cut-off value for this test was laboratory developed and its performance characteris tics confirmed by the [facility] laboratory thru method comparison with reference laboratory and medication chart review. The laboratory is regulated under CLIA as qualified to perform high-comple xity testing. This test is used for clinical purposes in conjunction with other laboratory tests. Ordering Provider: ADARSH MONDRAGON A Report Released Date/Time: Jul 29, 2024 12:50 PM Reporting Lab: [address] [phone] Performing Lab: [address] [phone] [facility] URINE DRUG SCREEN (STL) OPIATES [PRESENCE] IN URINE BY SCREEN METHOD Negative ng/mL 08/16 Specimen Type: URINE Comment: The cut-off value for this test was laboratory developed and its performance characteris tics confirmed by the [facility] laboratory thru method comparison with reference laboratory and medication chart review. The laboratory is regulated under CLIA as qualified to perform high-comple xity testing. This test is used for clinical purposes in conjunction with other laboratory tests. Ordering Provider: ADARSH MONDRAGON A Report Released Date/Time: Jul 29, 2024 12:50 PM Reporting Lab: [facility] [address] [facility] [phone] Performing Lab: [facility] [address] [facility] [phone] [facility] URINE DRUG SCREEN (STL) CREATININE [MASS/VOLU ME] IN URINE 17.2 mg/dL 63 - 166 08/16 L Specimen Type: URINE Comment: The cut-off value for this test was laboratory developed and its performance characteris tics confirmed by the [facility] laboratory thru method comparison with reference laboratory and medication chart review. The laboratory is regulated under CLIA as qualified to perform high-comple xity testing. This test is used for clinical purposes in conjunction with other laboratory tests. Ordering Provider: ADARSH MONDRAGON A Report Released Date/Time: Jul 29, 2024 12:50 PM Reporting Lab: [facility] [address] [facility] [phone] Performing Lab: [address] [phone] [facility] URINE DRUG SCREEN (STL) OXYCODONE CUTOFF [MASS/VOLU ME] IN URINE FOR SCREEN METHOD Negative ng/mL 08/16 Specimen Type: URINE Comment: The cut-off value for this test was laboratory developed and its performance characteris tics confirmed by the [facility] laboratory thru method comparison with reference laboratory and medication chart review. The laboratory is regulated under CLIA as qualified to perform high-comple xity testing. This test is used for clinical purposes in conjunction with other laboratory tests. Ordering Provider: ADARSH MONDRAGON A Report Released Date/Time: Jul 29, 2024 12:50 PM Reporting Lab: [facility] [address] [facility] [phone] Performing Lab: [facility] [address] [facility] [phone] [facility] URINE DRUG SCREEN (STL) BUPRENORPH INE [PRESENCE] IN URINE Negative 08/16 Specimen Type: URINE Comment: The cut-off value for this test was laboratory developed and its performance characteris tics confirmed by the [facility] laboratory thru method comparison with reference laboratory and medication chart review. The laboratory is regulated under CLIA as qualified to perform high-comple xity testing. This test is used for clinical purposes in conjunction with other laboratory tests. Ordering Provider: ADARSH MONDRAGON A Report Released Date/Time: Jul 29, 2024 12:50 PM Reporting Lab: [facility] [address] [facility] [phone] Performing Lab: [address] [address] [facility] URINE DRUG SCREEN (STL) FENTANYL [PRESENCE] IN URINE Negative ng/mL 08/16 Specimen Type: URINE Comment: The cut-off value for this test was laboratory developed and its performance characteris tics confirmed by the [facility] laboratory thru method comparison with reference laboratory and medication chart review. The laboratory is regulated under CLIA as qualified to perform high-comple xity testing. This test is used for clinical purposes in conjunction with other laboratory tests. Ordering Provider: ADARSH MONDRAGON A Report Released Date/Time: Jul 29, 2024 12:50 PM Reporting Lab: [facility] [address] [facility] [phone] Performing Lab: [facility] [address] [place] [phone] [facility] HGA1C HEMOGLOBIN A1C/HEMOGL OBIN.TOTAL IN BLOOD 5.9 4.0 - 6.0 08/16 Specimen Type: BLOOD No comment entered. Ordering Provider: ADARSH MONDRAGON A Report Released Date/Time: Jul 29, 2024 12:50 PM Reporting Lab: [facility] [address] [facility] [phone] Performing Lab: [facility] [address] [facility] [phone] [facility] B12 COBALAMIN (VITAMIN B12) [MASS/VOLU ME] IN SERUM OR PLASMA 713 pg/mL 213 - 816 08/16 Specimen Type: SERUM No comment entered. Ordering Provider: ADARSH MONDRAGON Report Released Date/Time: Jul 29, 2024 12:50 PM Reporting Lab: [facility] [address] [place] [phone] Performing Lab: [facility] [address] [place] [phone] [facility] VITAMIN D, 25-HYDRO XY 25-HYDROXY VITAMIN D3 [MASS/VOLU ME] IN SERUM OR PLASMA 26.4 ng/mL 30 - 96 08/16 L Specimen Type: SERUM No comment entered. Ordering Provider: ADARSH MONDRAGON Report Released Date/Time: Jul 29, 2024 12:50 PM Reporting Lab: [address] [phone] Performing Lab: [address] [phone] [facility] LIPID PANEL (STL) CHOLESTERO L [MASS/VOLU ME] IN SERUM OR PLASMA 208 mg/dL 0 - 200 08/16 H Specimen Type: PLASMA Comment: No hemolysis noted. Ordering Provider: ADARSH MONDRAGON Report Released Date/Time: Jul 29, 2024 12:50 PM Reporting Lab: [facility] [address] [place] [phone] Performing Lab: [address] [phone] [facility] LIPID PANEL (STL) TRIGLYCERI DE [MASS/VOLU ME] IN SERUM OR PLASMA 147 mg/dL 0 - 150 08/16 Specimen Type: PLASMA Comment: No hemolysis noted. Ordering Provider: ADARSH MONDRAGON Report Released Date/Time: Jul 29, 2024 12:50 PM Reporting Lab: [facility] [address] [place] [phone] Performing Lab: [address] [phone] [facility] LIPID PANEL (STL) CHOLESTERO L IN LDL [MASS/VOLU ME] IN SERUM OR PLASMA BY CARLOS Knutson 114 mg/dL 08/16 Specimen Type: PLASMA Comment: No hemolysis noted. Ordering Provider: ADARSH MONDRAGON Report Released Date/Time: Jul 29, 2024 12:50 PM Reporting Lab: [facility] [address] [facility] [phone] Performing Lab: [facility] [address] [facility] [phone] [facility] LIPID PANEL (STL) CHOLESTERO L IN HDL [MASS/VOLU ME] IN SERUM OR PLASMA 65 mg/dL 40 08/16 Specimen Type: PLASMA Comment: No hemolysis noted. Ordering Provider: ADARSH MONDRAGON A Report Released Date/Time: Jul 29, 2024 12:50 PM Reporting Lab: [address] [phone] Performing Lab: [facility] [address] [facility] [phone] [facility] COMPREHE NSIVE METABOLI C PANEL CREATININE [MASS/VOLU ME] IN SERUM OR PLASMA 1.23 mg/dL 0.7 - 1.3 08/16 Specimen Type: PLASMA Comment: No hemolysis noted. Ordering Provider: ADARSH MONDRAGON Report Released Date/Time: Jul 29, 2024 12:50 PM Reporting Lab: [facility] [address] [place] [phone] Performing Lab: [facility] [address] [facility] [phone] [facility] COMPREHE NSIVE METABOLI C PANEL UREA NITROGEN [MASS/VOLU ME] IN SERUM OR PLASMA 14.6 mg/dL 9.0 - 25.0 08/16 Specimen Type: PLASMA Comment: No hemolysis noted. Ordering Provider: ADARSH MONDRAGON Report Released Date/Time: Jul 29, 2024 12:50 PM Reporting Lab: [facility] [address] [facility] [phone] Performing Lab: [facility] [address] [facility] [address] [facility] COMPREHE NSIVE METABOLI C PANEL GLUCOSE [MASS/VOLU ME] IN SERUM OR PLASMA 130 mg/dL 72 - 99 08/16 H Specimen Type: PLASMA Comment: No hemolysis noted. Ordering Provider: ADARSH MONDRAGON Report Released Date/Time: Jul 29, 2024 12:50 PM Reporting Lab: [facility] [address] [facility] [phone] Performing Lab: [facility] [address] [place] [phone] [facility] COMPREHE NSIVE METABOLI C PANEL SODIUM [MOLES/VOL UME] IN SERUM OR PLASMA 133 meq/L 136 - 145 08/16 L Specimen Type: PLASMA Comment: No hemolysis noted. Ordering Provider: ADARSH MONDRAGON A Report Released Date/Time: Jul 29, 2024 12:50 PM Reporting Lab: [facility] [address] [facility] [phone] Performing Lab: [facility] [address] [facility] [phone] [facility] COMPREHE NSIVE METABOLI C PANEL POTASSIUM [MOLES/VOL UME] IN SERUM OR PLASMA 4.3 meq/L 3.5 - 5 08/16 Specimen Type: PLASMA Comment: No hemolysis noted. Ordering Provider: ADARSH MONDRAGON A Report Released Date/Time: Jul 29, 2024 12:50 PM Reporting Lab: [facility] [address] [facility] [phone] Performing Lab: [facility] [address] [facility] [phone] [facility] COMPREHE NSIVE METABOLI C PANEL CHLORIDE [MOLES/VOL UME] IN SERUM OR PLASMA 101 meq/L 98 - 107 08/16 Specimen Type: PLASMA Comment: No hemolysis noted. Ordering Provider: ADARSH MONDRAGON A Report Released Date/Time: Jul 29, 2024 12:50 PM Reporting Lab: [facility] [address] [facility] [phone] Performing Lab: [facility] [address] [place] [phone] [facility] COMPREHE NSIVE METABOLI C PANEL CARBON DIOXIDE, TOTAL [MOLES/VOL UME] IN SERUM OR PLASMA 22 meq/L 22 - 31 08/16 Specimen Type: PLASMA Comment: No hemolysis noted. Ordering Provider: ADARSH MONDRAGON Report Released Date/Time: Jul 29, 2024 12:50 PM Reporting Lab: [facility] [address] [place] [phone] Performing Lab: [facility] [address] [place] [phone] [facility] COMPREHE NSIVE METABOLI C PANEL CALCIUM [MASS/VOLU ME] IN SERUM OR PLASMA 9.4 mg/dL 8.4 - 10.4 08/16 Specimen Type: PLASMA Comment: No hemolysis noted. Ordering Provider: ADARSH MONDRAGON A Report Released Date/Time: Jul 29, 2024 12:50 PM Reporting Lab: [facility] [address] [place] [phone] Performing Lab: [facility] [address] [place] [phone] [facility] COMPREHE NSIVE METABOLI C PANEL PROTEIN [MASS/VOLU ME] IN SERUM OR PLASMA 6.9 g/dL 6 - 8.6 08/16 Specimen Type: PLASMA Comment: No hemolysis noted. Ordering Provider: ADARSH MONDRAGON A Report Released Date/Time: Jul 29, 2024 12:50 PM Reporting Lab: [facility] [address] [facility] [phone] Performing Lab: [facility] [address] [place] [phone] [facility] COMPREHE NSIVE METABOLI C PANEL ALBUMIN [MASS/VOLU ME] IN SERUM OR PLASMA 4.3 g/dL 3.4 - 5 10/15 /2024 Specimen Type: PLASMA Comment: No hemolysis noted. Ordering Provider: ADARSH MONDRAGON Report Released Date/Time: Jul 29, 2024 12:50 PM Reporting Lab: [facility] [address] [facility] [phone] Performing Lab: [facility] [address] [place] [phone] [place] [address] COMPREHE NSIVE METABOLI C PANEL BILIRUBIN. TOTAL [MASS/VOLU ME] IN SERUM OR PLASMA 0.5 mg/dL 0.2 - 1.2 08/16 Specimen Type: PLASMA Comment: No hemolysis noted. Ordering Provider: ADARSH MONDRAGON Report Released Date/Time: Jul 29, 2024 12:50 PM Reporting Lab: [facility] [address] [place] [phone] Performing Lab: [facility] [address] [place] [phone] [place] [address] COMPREHE NSIVE METABOLI C PANEL ALKALINE PHOSPHATAS E [ENZYMATIC ACTIVITY/V OLUME] IN SERUM OR PLASMA 54 U/L 40 - 150 08/16 Specimen Type: PLASMA Comment: No hemolysis noted. Ordering Provider: ADARSH MONDRAGON Report Released Date/Time: Jul 29, 2024 12:50 PM Reporting Lab: [facility] [address] [place] [phone] Performing Lab: [facility] [address] [facility] [phone] [facility] COMPREHE NSIVE METABOLI C PANEL ASPARTATE AMINOTRANS FERASE [ENZYMATIC ACTIVITY/V OLUME] IN SERUM OR PLASMA 28 U/L 5 - 34 08/16 Specimen Type: PLASMA Comment: No hemolysis noted. Ordering Provider: ADARSH MONDRAGON Report Released Date/Time: Jul 29, 2024 12:50 PM Reporting Lab: [facility] [address] [place] [phone] Performing Lab: [facility] [address] [place] [phone] [facility] COMPREHE NSIVE METABOLI C PANEL ALANINE AMINOTRANS FERASE [ENZYMATIC ACTIVITY/V OLUME] IN SERUM OR PLASMA 38 U/L 8 - 40 08/16 Specimen Type: PLASMA Comment: No hemolysis noted. Ordering Provider: ADARSH MONDRAGON Report Released Date/Time: Jul 29, 2024 12:50 PM Reporting Lab: [facility] [address] [facility] [address] Performing Lab: [facility] [address] [place] [phone] COMPREHE NSIVE METABOLI C PANEL GLOMERULAR FILTRATION RATE/1.73 SQ M.PREDICTE D [VOLUME RATE/AREA] IN SERUM, PLASMA OR BLOOD BY CREATININE -BASED FORMULA (CKD-EPI 2020) 72.4 60 08/16 Specimen Type: PLASMA Comment: No hemolysis noted. Ordering Provider: ADARSH MONDRAGON Report Released Date/Time: Jul 29, 2024 12:50 PM Reporting Lab: [facility] [address] [facility] [phone] Performing Lab: [facility] [address] [place], [place] [phone] [address] CBC LEUKOCYTES [#/VOLUME] IN BLOOD BY AUTOMATED COUNT 9.5 10*3/uL 3.6 - 11.2 08/16 Specimen Type: BLOOD No comment entered. Ordering Provider: ADARSH MONDRAGON A Report Released Date/Time: Jul 29, 2024 12:50 PM Reporting Lab: [facility] [address] [facility] [address] Performing Lab: [facility] [address] [place] [phone] CBC ERYTHROCYT ES [#/VOLUME] IN BLOOD BY AUTOMATED COUNT 4.79 10*6/uL 4.10 - 5.70 08/16 Specimen Type: BLOOD No comment entered. Ordering Provider: ADARSH MONDRAGON Report Released Date/Time: Jul 29, 2024 12:50 PM Reporting Lab: [facility] [address] [place] [phone] Performing Lab: [facility] [address] [place] [phone] [facility] CBC HEMOGLOBIN [MASS/VOLU ME] IN BLOOD 14.4 g/dL 13.1 - 16.8 08/16 Specimen Type: BLOOD No comment entered. Ordering Provider: ADARSH MONDRAGON A Report Released Date/Time: Jul 29, 2024 12:50 PM Reporting Lab: [facility] [address] [place] [phone] Performing Lab: [address] [phone] [place] [address] CBC HEMATOCRIT [VOLUME FRACTION] OF BLOOD 41.7 38.2 - 48.4 08/16 Specimen Type: BLOOD No comment entered. Ordering Provider: ADARSH MONDRAGON A Report Released Date/Time: Jul 29, 2024 12:50 PM Reporting Lab: [facility] [address] [place] [phone] Performing Lab: [address] [phone] [place] [address] CBC MCV [ENTITIC VOLUME] BY AUTOMATED COUNT 87.1 fL 80.0 - 100.0 08/16 Specimen Type: BLOOD No comment entered. Ordering Provider: ADARSH MONDRAGON A Report Released Date/Time: Jul 29, 2024 12:50 PM Reporting Lab: [facility] [address] [place] [phone] Performing Lab: [address] [phone] [facility] CBC MCH [ENTITIC MASS] BY AUTOMATED COUNT 30.1 pg 27.0 - 34.0 08/16 Specimen Type: BLOOD No comment entered. Ordering Provider: ADARSH MONDRAGON A Report Released Date/Time: Jul 29, 2024 12:50 PM Reporting Lab: [facility] [address] [facility] [phone] Performing Lab: [facility] [address] [place] [phone] [facility] CBC MCHC [MASS/VOLU ME] BY AUTOMATED COUNT 34.5 g/dL 33.0 - 36.0 08/16 Specimen Type: BLOOD No comment entered. Ordering Provider: ADARSH MONDRAGON A Report Released Date/Time: Jul 29, 2024 12:50 PM Reporting Lab: [facility] [address] [place] [phone] Performing Lab: [address] [phone] [facility] CBC PLATELETS [#/VOLUME] IN BLOOD BY AUTOMATED COUNT 290 10*3/uL 150 - 400 08/16 Specimen Type: BLOOD No comment entered. Ordering Provider: ADARSH MONDRAGON A Report Released Date/Time: Jul 29, 2024 12:50 PM Reporting Lab: [facility] [address] [place] [phone] Performing Lab: [facility] [address] [place] [phone] [facility] CBC PLATELET MEAN VOLUME [ENTITIC VOLUME] IN BLOOD BY AUTOMATED COUNT 9.5 fL 7.5 - 11.2 08/16 Specimen Type: BLOOD No comment entered. Ordering Provider: ADARSH MONDRAGON A Report Released Date/Time: Jul 29, 2024 12:50 PM Reporting Lab: [facility] [address] [place] [phone] Performing Lab: [facility] [address] [place] [phone] [facility] CBC ERYTHROCYT E DISTRIBUTI ON WIDTH [RATIO] BY AUTOMATED COUNT 12.3 11.8 - 15.1 08/16 Specimen Type: BLOOD No comment entered. Ordering Provider: ADARSH MONDRAGON A Report Released Date/Time: Jul 29, 2024 12:50 PM Reporting Lab: [facility] [address] [facility] [phone] Performing Lab: [facility] [address] [facility] [phone] [facility] CBC LYMPHOCYTE S/100 LEUKOCYTES IN BLOOD BY AUTOMATED COUNT 10 08/16 Specimen Type: BLOOD No comment entered. Ordering Provider: ADARSH MONDRAGON A Report Released Date/Time: Jul 29, 2024 12:50 PM Reporting Lab: [facility] [address] [facility] [phone] Performing Lab: [facility] [address] [facility] [phone] [facility] CBC MONOCYTES/ 100 LEUKOCYTES IN BLOOD BY AUTOMATED COUNT 2 08/16 Specimen Type: BLOOD No comment entered. Ordering Provider: ADARSH MONDRAGON A Report Released Date/Time: Jul 29, 2024 12:50 PM Reporting Lab: [facility] [address] [facility] [phone] Performing Lab: [facility] [address] [facility] [phone] [facility] CBC NEUTROPHIL S/100 LEUKOCYTES IN BLOOD BY AUTOMATED COUNT 87 08/16 Specimen Type: BLOOD No comment entered. Ordering Provider: ADARSH MONDRAGON A Report Released Date/Time: Jul 29, 2024 12:50 PM Reporting Lab: [facility] [address] [facility] [phone] Performing Lab: [facility] [address] [facility] [phone] [facility] CBC EOSINOPHIL S/100 LEUKOCYTES IN BLOOD BY AUTOMATED COUNT 0 08/16 Specimen Type: BLOOD No comment entered. Ordering Provider: ADARSH MONDRAGON A Report Released Date/Time: Jul 29, 2024 12:50 PM Reporting Lab: [facility] [address] [facility] [phone] Performing Lab: [facility] [address] [facility] [phone] [facility] CBC BASOPHILS/ 100 LEUKOCYTES IN BLOOD BY AUTOMATED COUNT 0 08/16 Specimen Type: BLOOD No comment entered. Ordering Provider: ADARSH MONDRAGON Report Released Date/Time: Jul 29, 2024 12:50 PM Reporting Lab: [facility] [address] [place] [phone] Performing Lab: [facility] [address] [place] [phone] [facility] CBC LYMPHOCYTE S [#/VOLUME] IN BLOOD BY AUTOMATED COUNT 0.96 10*3/uL 0.77 - 4.50 08/16 Specimen Type: BLOOD No comment entered. Ordering Provider: ADARSH MONDRAGON Report Released Date/Time: Jul 29, 2024 12:50 PM Reporting Lab: [facility] [address] [place] [phone] Performing Lab: [address] [phone] [facility] CBC MONOCYTES [#/VOLUME] IN BLOOD BY AUTOMATED COUNT 0.19 10*3/uL 0.19 - 0.80 08/16 Specimen Type: BLOOD No comment entered. Ordering Provider: ADARSH MONDRAGON Report Released Date/Time: Jul 29, 2024 12:50 PM Reporting Lab: [facility] [address] [place] [phone] Performing Lab: [facility] [address] [place] [phone] [facility] CBC NEUTROPHIL S [#/VOLUME] IN BLOOD BY AUTOMATED COUNT 8.28 10*3/uL 2.10 - 8.00 08/16 H Specimen Type: BLOOD No comment entered. Ordering Provider: ADARSH MONDRAGON Report Released Date/Time: Jul 29, 2024 12:50 PM Reporting Lab: [facility] [address] [place] [phone] Performing Lab: [facility] [address] [place] [phone] [facility] CBC EOSINOPHIL S [#/VOLUME] IN BLOOD BY AUTOMATED COUNT 0.03 10*3/uL 0.00 - 0.60 08/16 Specimen Type: BLOOD No comment entered. Ordering Provider: ADARSH MONDRAGON Report Released Date/Time: Jul 29, 2024 12:50 PM Reporting Lab: [address] [phone] Performing Lab: [address] [phone] [place] [address] CBC BASOPHILS [#/VOLUME] IN BLOOD BY AUTOMATED COUNT 0.04 10*3/uL 0.00 - 0.20 08/16 Specimen Type: BLOOD No comment entered. Ordering Provider: ADARSH MONDRAGON Report Released Date/Time: Jul 29, 2024 12:50 PM Reporting Lab: [address] [phone] Performing Lab: [address] [phone] [facility] CRYSTAL EXAM, JOINT FLUID (STL) CRYSTALS [TYPE] IN SYNOVIAL FLUID BY LIGHT MICROSCOPY NS Specimen Type: SYNOVIAL FLUID Comment: ~For Test: CELL COUNT BODY FLUIDS (STL) ~right knee Ordering Provider: TEENA MELENDREZ Report Released Date/Time: Dec 31, 2023 11:58 AM Reporting Lab: [address] [phone] Performing Lab: [address] [phone] [facility] CELL COUNT BODY FLUIDS (STL) MESOTHELIA L CELLS/100 LEUKOCYTES IN SYNOVIAL FLUID 3 Specimen Type: SYNOVIAL FLUID Comment: ~For Test: CELL COUNT BODY FLUIDS (STL) ~right knee Ordering Provider: TEENA MELENDREZ Report Released Date/Time: Dec 31, 2023 11:58 AM Reporting Lab: [address] [phone] Performing Lab: [place] [address] [facility] [phone] [facility] CELL COUNT BODY FLUIDS (STL) APPEARANCE OF SPUN BODY FLUID [place] Specimen Type: SYNOVIAL FLUID Comment: ~For Test: CELL COUNT BODY FLUIDS (STL) ~right knee Ordering Provider: TEENA MELENDREZ Report Released Date/Time: Dec 31, 2023 11:58 AM Reporting Lab: [address] [phone] Performing Lab: [place] [address] [facility] [address] [facility] CELL COUNT BODY FLUIDS (STL) SEGMENTED NEUTROPHIL S/100 LEUKOCYTES IN SYNOVIAL FLUID 11 Specimen Type: SYNOVIAL FLUID Comment: ~For Test: CELL COUNT BODY FLUIDS (STL) ~right knee Ordering Provider: TEENA MELENDREZ Report Released Date/Time: Dec 31, 2023 11:58 AM Reporting Lab: [address] [phone] Performing Lab: [address] [phone] [facility] CELL COUNT BODY FLUIDS (STL) LYMPHOCYTE S/100 LEUKOCYTES IN SYNOVIAL FLUID 42 Specimen Type: SYNOVIAL FLUID Comment: ~For Test: CELL COUNT BODY FLUIDS (STL) ~right knee Ordering Provider: TEENA MELENDREZ Report Released Date/Time: Dec 31, 2023 11:58 AM Reporting Lab: [address] [address] Performing Lab: [address] [phone] [facility] CELL COUNT BODY FLUIDS (STL) EOSINOPHIL S/100 LEUKOCYTES IN SYNOVIAL FLUID 3 Specimen Type: SYNOVIAL FLUID Comment: ~For Test: CELL COUNT BODY FLUIDS (STL) ~right knee Ordering Provider: TEENA MELENDREZ Report Released Date/Time: Dec 31, 2023 11:58 AM Reporting Lab: [facility] [address] [facility] [address] Performing Lab: [place] [address] [facility] [phone] [facility] CELL COUNT BODY FLUIDS (STL) MONOCYTES/ 100 LEUKOCYTES IN SYNOVIAL FLUID BY MANUAL COUNT 41 Specimen Type: SYNOVIAL FLUID Comment: ~For Test: CELL COUNT BODY FLUIDS (STL) ~right knee Ordering Provider: TEENA MELENDREZ Report Released Date/Time: Dec 31, 2023 11:58 AM Reporting Lab: [place] [address] [facility] [phone] Performing Lab: [address] [phone] [facility] CELL COUNT BODY FLUIDS (STL) NUCLEATED CELLS [#/VOLUME] IN SYNOVIAL FLUID BY MANUAL COUNT 963 /uL Specimen Type: SYNOVIAL FLUID Comment: ~For Test: CELL COUNT BODY FLUIDS (STL) ~right knee Ordering Provider: TEENA MELENDREZ Report Released Date/Time: Dec 31, 2023 11:58 AM Reporting Lab: [address] [phone] Performing Lab: [address] [phone] [facility] CELL COUNT BODY FLUIDS (STL) ERYTHROCYT ES [#/VOLUME] IN SYNOVIAL FLUID BY AUTOMATED COUNT 09404 /uL Specimen Type: SYNOVIAL FLUID Comment: ~For Test: CELL COUNT BODY FLUIDS (STL) ~right knee Ordering Provider: TEENA MELENDREZ Report Released Date/Time: Dec 31, 2023 11:58 AM Reporting Lab: [address] [address] Performing Lab: [address] [phone] [facility] BASIC METABOLI C PANEL CREATININE [MASS/VOLU ME] IN SERUM OR PLASMA 1.45 mg/dL 0.7 - 1.3 10/22 H Specimen Type: PLASMA Comment: No hemolysis noted. Ordering Provider: ORLANDO DOMINGUEZ Report Released Date/Time: Oct 14, 2023 11:00 AM Reporting Lab: [facility] [address] [facility] [phone] Performing Lab: [facility] [address] [place] [phone] [facility] BASIC METABOLI C PANEL UREA NITROGEN [MASS/VOLU ME] IN SERUM OR PLASMA 15.0 mg/dL 9.0 - 25.0 10/22 Specimen Type: PLASMA Comment: No hemolysis noted. Ordering Provider: ORLANDO DOMINGUEZ Report Released Date/Time: Oct 14, 2023 11:00 AM Reporting Lab: [facility] [address] [place] [phone] Performing Lab: [facility] [address] [place] [phone] [facility] BASIC METABOLI C PANEL GLUCOSE [MASS/VOLU ME] IN SERUM OR PLASMA 86 mg/dL 72 - 99 10/22 Specimen Type: PLASMA Comment: No hemolysis noted. Ordering Provider: ORLANDO DOMINGUEZ Report Released Date/Time: Oct 14, 2023 11:00 AM Reporting Lab: [facility] [address] [place] [phone] Performing Lab: [facility] [address] [place] [phone] [facility] BASIC METABOLI C PANEL SODIUM [MOLES/VOL UME] IN SERUM OR PLASMA 138 meq/L 136 - 145 10/22 Specimen Type: PLASMA Comment: No hemolysis noted. Ordering Provider: ORLANDO DOMINGUEZ Report Released Date/Time: Oct 14, 2023 11:00 AM Reporting Lab: [facility] [address] [place] [phone] Performing Lab: [facility] [address] [place] [phone] [facility] BASIC METABOLI C PANEL POTASSIUM [MOLES/VOL UME] IN SERUM OR PLASMA 4.1 meq/L 3.5 - 5 10/22 Specimen Type: PLASMA Comment: No hemolysis noted. Ordering Provider: ORLANDO DOMINGUEZ Report Released Date/Time: Oct 14, 2023 11:00 AM Reporting Lab: [place] [address] [facility] [address] Performing Lab: [facility] [address] [facility] [address] [facility] BASIC METABOLI C PANEL CHLORIDE [MOLES/VOL UME] IN SERUM OR PLASMA 103 meq/L 98 - 107 10/22 Specimen Type: PLASMA Comment: No hemolysis noted. Ordering Provider: ORLANDO DOMINGUEZ Report Released Date/Time: Oct 14, 2023 11:00 AM Reporting Lab: [address] [address] Performing Lab: [place] [address] [facility] [phone] [facility] BASIC METABOLI C PANEL CARBON DIOXIDE, TOTAL [MOLES/VOL UME] IN SERUM OR PLASMA 25 meq/L 22 - 31 10/22 Specimen Type: PLASMA Comment: No hemolysis noted. Ordering Provider: ORLANDO DOIMNGUEZ Report Released Date/Time: Oct 14, 2023 11:00 AM Reporting Lab: [address] [address] Performing Lab: [facility] [address] [facility] [address] [facility] BASIC METABOLI C PANEL CALCIUM [MASS/VOLU ME] IN SERUM OR PLASMA 9.5 mg/dL 8.4 - 10.4 10/22 Specimen Type: PLASMA Comment: No hemolysis noted. Ordering Provider: ORLANDO DOMINGUEZ Report Released Date/Time: Oct 14, 2023 11:00 AM Reporting Lab: [place] [address] [facility] [address] Performing Lab: [facility] [address] [facility] [address] [facility] BASIC METABOLI C PANEL GLOMERULAR FILTRATION RATE/1.73 SQ M.PREDICTE D [VOLUME RATE/AREA] IN SERUM, PLASMA OR BLOOD BY CREATININE -BASED FORMULA (CKD-EPI 2020) 59.4 60 10/22 Specimen Type: PLASMA Comment: No hemolysis noted. Ordering Provider: ORLANDO DOMINGUEZ Report Released Date/Time: Oct 14, 2023 11:00 AM Reporting Lab: [facility] [address] [facility] [phone] Performing Lab: [address] [address] [facility] Vital Signs Combined list of inpatient and outpatient Vital Signs from [facility], ranging from 12 months to all on record, depending upon the facility. Vital Sign Value Date Comments Source SYSTOLIC BLOOD PRESSURE 115 03/20/2025 11:08:25 [facility] DIASTOLIC BLOOD PRESSURE 75 03/20/2025 11:08:25 [facility] PULSE OXIMETRY 98 03/20/2025 11:08:25 [facility] WEIGHT 219 03/20/2025 11:08:[facility] BMI 28 kg/m2 03/20/2025 11:08:[facility] PAIN 4 03/20/2025 11[facility]08:25 [facility] HEIGHT 74 03/20/2025 11:08:25 [facility] TEMPERATURE 97.5 03/20/2025 11:08:25 [facility] PULSE 76 03/20/2025 11:08:[facility] RESPIRATION 20 03/20/2025 11:08:25 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 Location Location Details Encounter Type Encounter Number Reason For Visit Attending Provider ADM Date DC Date Status Disposition Source [employer]([facility]) OUTPATIENT [id number] Hyperte nsion JANNET NICHOLS 04/10 Released w/o Limitations [employer]([facility]) [employer]([facility]) OUTPATIENT [id number] cortizo ne shot in left knee JANNET NICHOLS 04/14 Released w/o Limitations [employer]([facility]) [facility]) OUTPATIENT [id number] knee bucklin g, sx in past RENATO MUÑOZ 06/18 Released with Work/Duty Limitations [facility] FP) [facility]) OUTPATIENT [id number] PAIN IN THE LEFT KNEE RAISA OLMOS 08/01 Released w/o Limitations [facility] FP) [facility]) TELE CONSULT [id number] results of urine test. What next step about high BP on the lisinop ril. NEREYDA ESCOBAR 08/04 [facility] FP) [facility]) OUTPATIENT [id number] referra l for tattoo removal RAISA OLMOS 08/07 Released w/o Limitations [facility]) [facility] Facility OUTPATIENT [id number] 01/19 Released w/o Limitations [facility]) OUTPATIENT [id number] RX REFILL RAISA OLMOS 05/18 Released w/o Limitations [facility] FP) [facility]) OUTPATIENT [id number] pain/di scomfor t in right testicl e RAISA OLMOS 07/28 Released w/o Limitations [facility] FP) [facility]) OUTPATIENT [id number] med JULIO CESAR Bustamante 12/08 Released w/o Limitations [facility]) [facility]) OUTPATIENT [id number] left chronic knee pain( on going) ADRIANNA DIEGO 01/25 Released w/o Limitations [facility]) [facility]) TELE CONSULT [id number] injured knee DAVID DE PAZ 02/03 [facility]) [facility]) OUTPATIENT [id number] right knee pain JANNET AMARO 02/04 Released w/o Limitations [facility]) [facility]) OUTPATIENT [id number] 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 ADRIANNA Lu 02/15 Released w/o Limitations [facility]) [facility] Outpatient Encounter [id number] [id number] Diagnos is: ICD-10- CM 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 Outpatient Encounter 11028-1.65 [id number] 1 03/21 [facility] Outpatient Encounter 54414-7.65 [id number] LISA LOEPZ J 03/22 [facility] Outpatient Encounter [id number] [id number] RUNNER,MAR K D 03/30 [facility] Outpatient Encounter 00593-4.65 [id number] RUNNER,MAR K D 03/30 [facility] Outpatient Encounter [id number] [id number] GUANAKITO ABRAHAM RID D 03/30 [facility] Outpatient Encounter 11940-6.65 [id number] 04/07 [facility] OFFICE O/P EST LOW 20 MIN [id number] [id number] Diagnos is: ICD-10- CM S83.204 A Oth tear of unsp meniscu s, current injury, left knee, CORTNEY Roche 04/14 [facility] Outpatient Encounter [id number] [id number] WILNER STARR 04/18 [facility] Outpatient Encounter [id number] [id number] 4 WILNER STARR ANN 04/18 [facility] OFFICE O/P EST MOD 30 MIN [id number] [id number] Diagnos is: ICD-10- CM F33.0 Major depress inder disorde r, recurre nt, mild GBADEBO-MAYUR LEGER ZOE 04/21 [facility] Outpatient Encounter [id number] [id number] 04/28 [facility] Outpatient Encounter [id number] [id number] 1 05/03 [facility] Outpatient Encounter [id number] [id number] 0 05/13 [facility] Outpatient Encounter 89812-1.65 [id number] 9 LOVE-ELWILNERMACARIO 06/09 [facility] Outpatient Encounter [id number] [id number] 8 LOVE-ELMACARIO 06/09 [facility] Outpatient Encounter 88162-9.65 [id number] 1 06/20 [facility] OFFICE O/P EST MOD 30 MIN [id number] [id number] Diagnos is: ICD-10- CM 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 HC PRO PHONE CALL 5-10 MIN [id number] [id number] Diagnos is: ICD-10- CM R52 Pain, unspeci fied GORDON,PHIL A 06/24 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 HC PRO PHONE CALL 5-10 MIN 81646-6.65 [id number] Diagnos is: ICD-10- CM M25.561 Pain in right knee GORDONPHIL A 06/27 [facility] Outpatient Encounter 73105-5.65 [id number] 06/28 [facility] Outpatient Encounter 18080-3.65 [id number] 3 LISA LOPEZ Gilbert 06/29 [facility] Outpatient Encounter [id number]. [id number] SHOAIB LOPEZ SA Ramirez 06/30 [facility] Outpatient Encounter [id number] 06/30 [facility] Outpatient Encounter 81603-5 [id number] LISA LOPEZ Gilbert 06/[address] [facility] MTMS BY PHARM ADDL 15 MIN 91804-9. 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 OFF/OP EST MARCH X REQ PHY/QHP [id number] [id number] Diagnos is: ICD-10- CM M25.511 Pain in right shoulde r LISA LOPEZ Gilbert 06/30 [facility] Outpatient Encounter [id number] 4 07/[address] [facility] ORTHOTIC MGMT&TRAIN G 1ST ENC 32264-7.65 [id number] Diagnos is: ICD-10- CM Z46.89 Encount er for fitting and adjustm ent of oth devices LUCÍA KOHLER 07/11 [facility] Outpatient Encounter [id number] [id number] 07/11 [facility] Outpatient Encounter 32677-4 [id number] 07/[address] [facility] HC PRO PHONE CALL 5-10 MIN [id number] [id number] Diagnos is: ICD-10- CM M25.561 Pain in right knee SHOAIB LOPEZ R 07/13 [facility] Outpatient Encounter [id number] [id number] 07/15 [facility] Outpatient Encounter 70160-4.65 [id number] 07/[address] 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 Outpatient Encounter 44058-4.65 [id number] MARYSE NARANJO ANY N 07/29 [facility] HC PRO PHONE CALL 5-10 MIN [id number] [id number] Diagnos is: ICD-10- CM M25.761 Osteoph yte, right knee SHOAIB LOPEZ SA R 08/03 [facility] Outpatient Encounter [id number] [id number] 1 08/[address] [facility] Outpatient Encounter 39937-1.65 [id number] Diagnos is: ICD-10- CM F43.20 Adjustm ent disorde r, unspeci fied GBADEBO-GO MAYUR OJEDA 08/12 [facility] Outpatient Encounter [id number] [id number] MINDY JARA 08/18 [facility] Outpatient Encounter [id number] [id number] MINDY JARA 08/18 [facility] Outpatient Encounter [id number] [id number] 08/18 [facility] Outpatient Encounter 87771-6.65 [id number] 08/[address] [facility] OFFICE O/P EST MOD 30 MIN [id number] [id number] Diagnos is: ICD-10- CM M25.561 Pain in right knee JACKIE WING 08/22 [facility] Outpatient Encounter 75435-7.65 [id number] 3 MARYSE NARANJO ANY N 08/22 [facility] OFF/OP EST MAY X REQ PHY/QHP [id number] [id number] Diagnos is: ICD-10- CM R94.31 Abnorma l electro cardiog marta [ECG] [EKG] LISA LOPEZ Gilbert 08/23 [facility] Outpatient Encounter [id number] [id number] 08/24 [facility] Outpatient Encounter 85692-0.65 [id number] 2 MARYSE NARANJO ANY N 08/26 [facility] Outpatient Encounter 39790-7.65 [id number] 08/31 [facility] Outpatient Encounter 42728-8.65 [id number] 3 09/13 [facility] Outpatient Encounter 26867-9.65 [id number] 7 09/16 [facility] Outpatient Encounter 68631-9.65 [id number] 1 09/16 [facility] Outpatient Encounter 03844-4.65 [id number] 1 Diagnos is: ICD-10- CM 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 CUCA INKYRIE 09/16 [facility] Outpatient Encounter 91393-5.65 [id number] 9 Diagnos is: ICD-10- CM T84.50X A Infect/ inflm reactio n due to unsp int joint prosth, init PREETHITAMIRH SOFIA S 09/18 [facility] Outpatient Encounter [id number] [id number] 09/19 [facility] Outpatient Encounter 91025-9.65 [id number] DEENA SAUL RLA F 09/19 [facility] Outpatient Encounter 39886-4.65 [id number] 09/20 [facility] Outpatient Encounter 44639-5.65 [id number] 09/20 [facility] Outpatient Encounter 53219-6.65 [id number] 09/20 [facility] Outpatient Encounter 34457-3.65 [id number] 09/20 [facility] Outpatient Encounter [id number] [id number] 09/20 [facility] Outpatient Encounter 97687-1.65 [id number] 1 09/21 [facility] Outpatient Encounter 53929-0.65 [id number] 1 DEENA SAUL RLA F 09/23 [facility] Outpatient Encounter 03847-3.65 [id number] 09/26 [facility] Outpatient Encounter 59136-4.65 [id number] 7 09/29 [facility] Encounter 61400-0.65 [id number] 1 10/03 [facility] Outpatient Encounter 26429-2.65 [id number] 10/18 [facility] Out[facility] Encounter 56449-1.65 [id number] 10/19 [facility] Encounter 19368-3.65 [id number] 1 10/19 [facility] Outpatient Encounter 00934-1.65 [id number] 1 11/05 [facility] Encounter 85819-1.65 [id number] 2 12/15 [facility] Outpatient Encounter [id number] [id number] 6 WILNER STARR 01/03 [facility] Outpatient Encounter [id number] [id number] 7 WILNER STARR 01/03 [facility] Outpatient Encounter 92900-9.65 [id number] 1 01/03 [facility] Outpatient Encounter [id number] [id number] 6 01/05 [facility] Outpatient Encounter 88716-7.65 [id number] 01/05 [facility] OFFICE O/P EST MOD 30 MIN 50399-8.65 [id number] Diagnos is: ICD-10- CM F31.81 Bipolar II disorde r MAYUR HERNANDEZ 01/05 [facility] Outpatient Encounter 95471-7.65 [id number] 01/16 [facility] PH1 ASSMT&MGMT NQHP 5-10 [id number] [id number] Diagnos is: ICD-10- CM 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, 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 [place] ORINDA K 01/16 [facility] Outpatient Encounter 44660-7.65 [id number] 01/18 [facility] OFF/OP EST MAY X REQ PHY/QHP [id number] [id number] Diagnos is: ICD-10- CM Z11.1 Encount er for screeni ng for respira tory tubercu jasmina ROSEANNALVIN AWAD S 01/23 [facility] Outpatient Encounter [id number] [id number] 01/24 [facility] OFF/OP EST MAY X REQ PHY/QHP [id number] [id number] Diagnos is: ICD-10- CM Z11.1 Encount er for screeni ng for respira tory tubercu [place], [place] ORINDA K 01/25 [facility] Outpatient Encounter 42021-3.65 [id number] 1 WILNER STARR 01/26 [facility] 86716-7.65 [id number] 8 SAM-WILNER ADLERMACARIO 01/26 [facility] Outpatient Encounter 21945-4.65 [id number] 2 SAM-WILNER ADLERMACARIO 01/26 [facility] Encounter 78135-2.65 [id number] 9 SAM-WILNER ADLERMACARIO 01/26 [facility] 69041-7.65 [id number] 6 01/31 [facility] Outpatient Encounter 07852-5.65 [id number] 2 02/06 [facility] Outpatient Encounter 44803-7.65 [id number] ALYSIAWV ORIVIKRAMA K 02/10 [facility] Outpatient Encounter 05147-3.65 [id number] 0 DEENA SAUL F 02/15 [facility] Outpatient Encounter 27077-3.65 [id number] 2 [place] ORINDA K 02/16 [facility] Outpatient Encounter 02093-8.65 [id number] 5 02/20 [facility] Outpatient Encounter 75062-4.65 [id number] 02/20 [facility] Outpatient Encounter [id number] [id number] 6 02/23 [facility] OFFICE O/P EST MOD 30 MIN [id number] [id number] Diagnos is: ICD-10- CM 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 MTMS BY PHARM ORDER BUILDER LOADER 15 MIN 64442-3.65 [id number] Diagnos is: ICD-10- CM F11.90 Opioid use, unspeci fied, uncompl icated CINTHYA LU HY D 04/12 [facility] Outpatient Encounter 24640-8.65 [id number] 4 06/08 [facility] Outpatient Encounter 09784-5.65 [id number] 9 Diagnos is: ICD-10- CM M25.511 Pain in right shoulde r WEHKING,PE GGY W 06/08 [facility] Outpatient Encounter 67433-5.65 [id number] 0 DEENA SAUL RLA F 06/12 [facility] Outpatient Encounter 78096-7.65 [id number] 4 06/14 [facility] Outpatient Encounter 88157-5.65 [id number] 2 06/15 [facility] Outpatient Encounter 17890-3.65 [id number] 6 06/22 [facility] Outpatient Encounter 43414-1.65 [id number] 06/23 [facility] Outpatient Encounter 47460-6.65 [id number] 4 06/27 [facility] PH1 ASSMT&MGMT NQHP 11-20 [id number] [id number] Diagnos is: ICD-10- CM F51.8 Oth sleep disord not due to a sub or known physiol cond BARBARA HATFIELD 06/29 [facility] Outpatient Encounter [id number] [id number] 3 PIERCE BECKER 06/30 [facility] OFFICE O/P EST MOD 30 MIN 92541-6.65 [id number] Diagnos is: ICD-10- CM M25.511 Pain in right shoulde r MONDRAGON,AR MIDA A 07/04 [facility] Outpatient Encounter 74718-7.65 [id number] 1 07/12 [facility] Outpatient Encounter 47315-9.65 [id number] 07/20 [facility] Outpatient Encounter 84372-7.65 [id number] 6 08/01 [facility] Outpatient Encounter 18180-0.65 [id number] 5 08/18 [facility] Outpatient Encounter 14847-4.65 [id number] Diagnos is: ICD-10- CM T84.50X D Infect/ inflm reactio n due to unsp int joint prosth, subs IRMA ORO S 08/18 [facility] Outpatient Encounter 49817-4.65 [id number] PIERCE BECKER 08/19 [facility] Outpatient Encounter 75092-7.65 [id number] 0 James PADRON 08/21 [facility] Outpatient Encounter 13282-5.65 [id number] James PADRON 08/21 [facility] Outpatient Encounter 63740-4.65 [id number] 08/22 [facility] Outpatient Encounter 35458-0.65 [id number] 9 08/22 [facility] Outpatient Encounter [id number] [id number] 08/28 [facility] Outpatient Encounter 75895-2.65 [id number] 08/29 [facility] Procedures Combined list of: 1) Procedures from Department of Veterans Affairs facilities going back up to thelast 18 months, not all VA non-surgical procedures are included; 2) All procedures from the Department of Defense facilities. Procedure Procedure Type Code Date Perfomer Comments Sour e Corticosteroids Injection Intraarticular Intermediate Joint Corticosteroids Injection Intraarticular Intermediate Joint 5 JANNET NICHOLS [facility] THERAPEUTIC PROCEDURE, 1 OR MORE AREAS, EACH 15 MINUTES; GAIT TRAINING (INCLUDES STAIR CLIMBING) 4 DoD CRUTCHES UNDERARM, WOOD, ADJUSTABLE OR FIXED, PAIR, WITH PADS, TIPS AND HANDGRIPS 4 [facility] ARTHROCENTESIS, ASPIRATION AND/OR INJECTION, INTERMEDIATE JOINT OR BURSA (EG, TEMPOROMANDIBULAR, ACROMIOCLAVICULAR, WRIST, ELBOW OR ANKLE, OLECRANON BURSA); WITHOUT ULTRASOUND GUIDANCE 5 [facility] INJECTION, TRIAMCINOLONE ACETONIDE, NOT OTHERWISE SPECIFIED, 10 MG 5 [facility] OPHTHALMOLOGICAL SERVICES: MEDICAL EXAMINATION AND EVALUATION, WITH INITIATION OR CONTINUATION OF DIAGNOSTIC AND TREATMENT PROGRAM; INTERMEDIATE, ESTABLISHED PATIENT 4 [facility] ELECTROCARDIOGRAM, ROUTINE ECG WITH AT LEAST 12 LEADS; WITH INTERPRETATION AND REPORT 6 [facility] INJECTION OR INFUSION OF OTHER THERAPEUTIC OR PROPHYLACTIC SUBSTANCE 6 [facility] INJECTION OF ANTIBIOTIC 6 [facility] Social History Combined list of available smoking, tobacco, and other social history from Department of Defense and Veterans Affairs facilities. Social History Type Response Date Comment [facility] e Tobacco smoking status NHIS VA-TOBACCO NEVER USED 10/23/2023 [facility] History of tobacco use NH-TOBACCO NEVER USED 07/22/2022 [facility] History of tobacco use NH-TOBACCO NEVER USED 12/18/2020 [facility] History of tobacco use VA-TOBACCO NEVER USED 12/22/2018 [facility] History of tobacco use NH-TOBACCO NEVER USED 11/08/2018 [facility] This section is an empty social history section. [facility] Plan of Care List of future care activities from Department of Veterans Affairs facilities. Additional future care activities may be listed in the Assessment and Plan section. Date/Time Care Activity Care Activity Detail Facili ty 09/06/2025 AMBULATORY - NONE AMBULATORY - NONE [facility]
--- OUTSIDE RECORDS SUMMARY | 2025-09-05 15:33 | XMS_ITS | Patient Health Record ---
Author Organization [facility] Address [address] [place], [place] [address] Care Team Providers Care Drill Operator Name Role Phone JEWEL HANSON Unavailable [phone] Schwartz, Iraida Unavailable Unavailable Allergies Allergen (clinical drug ingredient) Drug/Non Drug Allergy documented on EMR Reaction Allergy Type Onset Date Status amoxicillin Amoxicillin Unknown Drug Allergy Act inder Reason For Referral No Information Medications Medication SIG (Take, Route, Frequency, Duration) Notes Start Date End Date Status Percocet 5-325 MG Tablet 1 tablet as nee ded Orally every 6 hrs; Duration: 4 days 11/20/2023 Active HYDROcodone-Acetaminophen 5-325 MG Tablet 1 tablet as needed Orally every 6 hrs; Duration: 4 days 12/04/2023 Active Amitriptyline HCl 10 MG Tablet 1 tablet at bedtime Orally Once a day; Duration: 7 days 12/14/2023 Active Immunizations Vaccine Route Administration Date Status Comme nts Influenza, high dose seasonal Unknown 07/16/2023 Admini stered Social History Social History Additional Details Category Social Info Options Details Drugs/Alcohol: Do you drink alcohol? No Plan Of Treatment No Information Insurance Providers Payer Name Payer Address Payer Phone Subscriber Number Group Number Insured Name Patient Relationship to Insured Coverage Start Date Coverage End Date [facility] ([facility]) ATTN CLAIMS [address] [place] [address] [id number] PANKAJ MORILLO Self - patient is the insured [facility] PAYER ID [id number] [address] [place] [address] [id number] [id number] Self - patient is the insured Medical (General) History Medical History History ICD Code artificial joint Arthritis hypertension Surgical History Surgery Date(Month/Year) Shoulder repair Knee Surgery Elbow surgery ankle surgery
--- OUTSIDE RECORDS SUMMARY | 2025-09-05 15:34 | XMS_ITS | Encounter Summary ---
Author Organization [facility] Address [address] [place] [address] Phone Care Team Providers Care Vamp Strap Ironer Name Role Phone Iraida Schwartz MD Primary Care Provid er Encounter Details Date Type Department Care Team (Late st Contact Info) Description 08/21/2025 Telephone [facility] Medicine Infectious Diseases [address] [place] [phone] Jessica Villa RMA Social History Tobacco Use Types Packs/Day Years Used Date Smoking Tobacco: Never Passive Smoke Exposure: Never Smokeless Tobacco: Never Alcohol Use Standard Drinks/Week Comments Never 0 (1 standard drink = 0.6 oz pur e alcohol) PHQ-2 Answer Date Recorded PHQ-2 Total Score (If total score is 3 or more points, staff should administer the PHQ-9) 0 08/17/2025 Social Connection and Isolation Panel Answer Date Recorded In a typical week, how many times do you talk on the phone with family, friends, or neighbors? More than three times a week 08/18/2025 How often do you get togethe r with friends or relatives? More than three times a week 08/18/2025 How often do you attend chur ch or jehovah's witness services? Never 08/18/2025 Do you belong to any clubs o r organizations such as zoroastrian groups, unions, fraternal or athletic groups, or school groups? No 08/18/2025 How often do you attend meet ings of the clubs or organizations you belong to? Never 08/18/2025 Are you , , di vorced, , never , or living with a partner? 08/18/2025 AUDIT-C Answer Date Recorded Q1: How often do you have a drink containing alcohol? Never 08/16/2025 Q2: How many drinks containi ng alcohol do you have on a typical day when you are drinking? Patient does not drink Q3: How often do you have si x or more drinks on one occasion? Never 08/16/2025 Overall Financial Resource Strain (CARDIA) Answe r Date Recorded How hard is it for you to pa y for the very basics like food, housing, medical care, and heating? Not hard at all 08/18/2025 Hunger Vital Sign Answer Date Recorded Within the past 12 months, y ou worried that your food would run out before you got the money to buy more. Never true 08/18/20 25 Within the past 12 months, t he food you bought just didn't last and you didn't have money to get more. Never true 08/18/2025 PRAPARE - Transportation Answer Date Re corded In the past 12 months, has l ack of transportation kept you from medical appointments or from getting medications? No 08/02 In the past 12 months, has l ack of transportation kept you from meetings, work, or from getting things needed for daily living? No 08/18/2025 Housing Stability Vital Sign Answer Von e Recorded In the last 12 months, was t here a time when you were not able to pay the mortgage or rent on time? No 08/18/2025 In the past 12 months, how m any times have you moved where you were living? 0 08/18/2025 At any time in the past 12 m [facility], were you homeless or living in a fpc (including now)? No 08/18/2025 [facility] Utilities Answer Date Recorded In the past 12 months has th e electric, gas, oil, or water company threatened to shut off services in your home? No 08/18/2025 Personal Safety Answer Date Recorded Have you ever been in or are you currently in a harmful physical or emotional relationship or is someone making you feel afraid or unsafe? 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 * Telephone Encounter - Jessica Villa RMA - 08/21/2025 1:08 PM CDT [facility] would like to know if the provider will follow the pt. Please call [phone] documented in this encounter Plan of Treatment Not on file documented as of this encounter Visit Diagnoses Not on filedocumented in this encounter Care Teams Vamp Strap Ironer Relationship Specialty Start Date End Date Iraida Schwartz MD [address] [place] [address] PCP - General Family Practice 02/18/23 documented as of this encounter
--- OUTSIDE RECORDS SUMMARY | 2025-09-05 15:34 | XMS_ITS | Clinical Summary ---
Author Organization [facility] [employer] Address [address] [place] [address] Care Team Providers Care Banquet Director Name Role Phone Adriel Landry MD Primary Care Provider [phone] Source Comments [facility],non-owned Affiliates and Associated Physician Practices is amultiple site organization consisting of ambulatory clinics and hospital sitesin [place], [place], [place] and [place]. This disclosure is being madepursuant to the Care Everywhere program and may not contain all information available regarding this patient. Last updated 18.[facility] [employer] Allergies Active Allergy Reactions Criticality Noted Date Comments Amoxicillin Seizures High 03/19/2018 Medications * Be aware that medications may not be up to date on this document. Alwaysverify current medications with the patient. lisinopril (PRINIVIL; ZESTRIL) 40 MG tablet Take 40 mg by mouth once daily Active escitalopram (LEXAPRO) 20 MG tablet Take 20 mg by mouth once daily Active levETIRAcetam (KEPPRA) 250 MG tablet Take 1 tablet by mouth 2 times daily 60 tablet 11 10/14/2018 Active Active Problems Problem Noted Date Diagnosed Date Seizures 03/19/2018 Immunizations Immunization Administration Dates Next Due FLU VACCINE QUAD IIV4 PF ID 07/18/2016 Family History Medical History Relation Name Comments Hypertension Father Relation Name Status Comments Father Social History Tobacco Use Types Packs/Day Years Used Date Smoking Tobacco: Never Smokeless Tobacco: Never Alcohol Use Standard Drinks/Week Comments Yes 0 (1 standard drink = 0.6 oz pur e alcohol) Sex and Gender Information Value Date Recorded Sex Assigned at Not on file Legal Sex Male 10:49 AM CDT Gender Identity Not on file Sexual Orientation Not on file Last Filed Vital Signs Vital Sign Reading Time Taken Comments Blood Pressure 126/78 03/19/2018 8:16 AM CDT Pulse 56 03/19/2018 8:16 AM CDT Temperature 36.7 C (98.1 F) 03/19/2018 8:16 AM CDT Respiratory Rate 20 11/02/2016 12:19 PM SUPERVISORY GEOGRAPHER Oxygen Saturation 96% 11/02/2016 12:19 PM SUPERVISORY GEOGRAPHER Inhaled Oxygen Concentration - - Weight 101.2 kg (223 lb) 03/19/2018 8:16 AM CDT Height 190.5 cm (6' 3) 03/19/2018 8:16 AM CDT Body Mass Index 27.87 03/19/2018 8:16 AM CDT Plan of Treatment Health Maintenance Due Date Last Done Comments COLOGUARD (AGES 45-75) - COL ON CA SCREENING 1975 COLON MONITORING 1975 COLONOSCOPY - COLON CA SCREENING 1975 CT COLONOGRAPHY - COLON CA SCREENING 1975 Colorectal Cancer Screening 1975 FIT - COLON CA SCREENING 1975 FLEX SIG - COLON CA SCREENING 1975 LIPID TESTING 1975 HIV SCREENING 1990 HEPATITIS C SCREENING 09/23/1993 DTAP/TDAP/TD VACCINES (1 - Tdap) 1994 HEPATITIS B VACCINE (1 of 3 - 19+ 3-dose series) 1994 SCREENING FOR DIABETES 11/02/2019 7, 11/01/2016 DEPRESSION SCREENING 11/02/2024 COVID-19 VACCINE ( - 2023-2 5 season) 2025 INFLUENZA VACCINE (#1) 2025 07/18/2016 ZOSTER VACCINE (1 of 2) 2025 HIB VACCINE Aged Out No longer eligi ble based on patient's age to complete this topic HPV VACCINE Aged Out No longer eligi ble based on patient's age to complete this topic MENINGOCOCCAL (Group B) VACCINE SHARED DECISION-MAKING Aged Out No longer eligible based on patient's age to complete this topic MENINGOCOCCAL GROUPS A/C/Y/W VACCINE Aged Out No longer eligible b ased on patient's age to complete this topic Procedures Procedure Name Priority Date/Time Associated Diagnosis Comments BASIC METABOLIC PANEL (CALCIUM TOTAL) Routine 11/02/2016 3:54 AM SUPERVISORY GEOGRAPHER from Last 3 Months or Most Recently Relevant to Health Maintenance Results * (ABNORMAL) BASIC METABOLIC PANEL (CALCIUM TOTAL) (11/02/2016 3:54 AM SUPERVISORY GEOGRAPHER) BUN 9 7 - 26 mg/dL [facility] Creatinine 1.4(H) 0.6 - 1.2 mg/dL [facility] Sodium 135(L) 136 - 145 mmol/L [facility] Potassium 3.9 3.5 - 4.5 mmol/L [facility] Chloride 100 98 - 107 mmol/L [facility] CO2 24 22 - 29 mmol/L [facility] Glucose 104 70 - 115 mg/dL [facility] Calcium 8.7 8.4 - 10.2 mg/dL [facility] Anion Gap 15 8 - 18 [facility] BUN/Creatinine Ratio 6(L) 7 - 23 [facility] Osmolality Calculated 279 270 - 300 mOsm/kg [facility] eGFR 56(L) >60 mL/min/1.7 3 m2 [facility] Blood specimen (specimen) BLOOD SPECIMEN / Unknown 11/02/2016 3:54 AM SUPERVISORY GEOGRAPHER 11/02/2016 4:29 AM SUPERVISORY GEOGRAPHER Jennifer Tovar MD LAB - CHEMISTRY ORDERABLES Fi nal Result [address] [phone] from Last 3 Months or Most Recently Relevant to Health Maintenance [place] [address] [address] [facility] Care Teams Banquet Director Relationship Specialty Start Date End Date Adriel Landry MD PCP - General 03/19/18
--- OUTSIDE RECORDS SUMMARY | 2025-09-05 15:34 | XMS_ITS | Encounter Summary ---
Author Organization [facility] Address [address] [place] [address] Care Team Providers Care Project Development Engineer Name Role Phone Adriel Landry MD Primary Care Provider [phone] Encounter Details Date Type Department Care Team (Late st Contact Info) Description 11/27/[address] [facility] Care DermPath Lab [address] [place] [address] Fito Harris MD [address] [place] [address] Social History Tobacco Use Types Packs/Day Years [...] on file documented as of this encounter Plan of Treatment Not on file documented as of this encounter Procedures Procedure Name Priority Date/Time Associated Diagnosis Comments DERMATOPATHOLOGY Routine 11/23/2020 3:33 AM NEGOTIATIONS DIRECTOR documented in this encounter Results * DERMATOPATHOLOGY (11/23/2020 3:33 AM NEGOTIATIONS DIRECTOR) Case Report Dermatopathology Report Case: [id number] Authorizing Provider: Fito Harris MD Collected: 11/23/2020 03:33 AM Ordering Location: [facility] DermPath Lab Received: 11/27/2020 06:53 AM Pathologist: Mayra Robbins MD Specimen: Skin, left lower back 5:21 PM [facility] DERMATOPATHOLOGY LABORATORY Final Diagnosis Specimen A. SKIN, left lower back: LENTIGINOUS MELANOCYTIC NEVUS, COMPOUND TYPE, IRRITATED (COMPOUND MELANOCYTIC NEVUS WITH ARCHITECTURAL DISORDER) (D22.5) (see microscopic description and comment) 5:21 PM [facility] DERMATOPATHOLOGY LABORATORY at [address] [facility] Clinical History Nevus vs MM. Path#[id number] 5:21 PM [facility] DERMATOPATHOLOGY LABORATORY Gross Description Specimen A: Received is one formalin filled container labeled with the patient's name and designated left lower back. The specimen consists of a shave biopsy measuring 7x4x1 mm. Jar 0. 5:21 PM [facility] DERMATOPATHOLOGY LABORATORY Microscopic Description Specimen A. SKIN, left lower back: This is a compound nevus. There is melanin pigment in the stratum corneum. There is architectural disorder characterized by a lentiginous proliferation of melanocytes between irregular nests of cells along the dermal-epidermal junction, highlighted by MART-1/Melan-A immunohistochemical staining. There is underlying fibroplasia of the papillary dermis. The intradermal component is bland appearance and matures with depth. Original and deeper sections were reviewed. (Compound Kin's Nevus or Compound Dysplastic Nevus) COMMENT: The histopathologic findings of the portion of the lesion sampled are reassuring. However, as this lesion is present at the margins of the specimen, clinicopathological correlation is recommended as to the nature of the remaining lesion. 5:21 PM [facility] DERMATOPATHOLOGY LABORATORY Disclaimer An external and internal positive and negative controls are appropriate for the histochemical, immunohistochemical and immunofluorescence stain(s) in this case (if any), except where stated explicitly. The performance characteristics of the stain(s) cited in this report were developed and its performance characteristic determined by the Dermatopathology Laboratory at [facility], directed by Dr. Marly Rojas. These tests need not be, and therefore are not, approved by the [place] Food and Drug Administration. The tests are used for clinical purposes. Billing Codes Specimen Charges Stain Charges 85176 1 19540 1 1 5:21 PM NEGOTIATIONS DIRECTOR DERMATOPATHOLOGY LABORATORY Embedded Images 1 5:21 PM NEGOTIATIONS DIRECTOR DERMATOPATHOLOGY LABORATORY Pathology/Cytolo gy TISSUE SPECIMEN FROM SKIN / Unknown 11/23/2020 3:33 AM NEGOTIATIONS DIRECTOR 11/27/2020 6:53 AM NEGOTIATIONS DIRECTOR Fito Harris MD LAB - PATHOLOGY/CYTOLOGY ORDER KATIE Final Result DERMATOPATHOLOGY LABORATORY [facility] - Department of Dermatology [facility] Specialized Medicine [address] [place] [address], [address] [phone] documented in this encounter Visit Diagnoses Not on filedocumented in this encounter Care Teams Project Development Engineer Relationship Specialty Start Date End Date Adriel Landry MD PCP - General 03/19/18 documented as of this encounter
--- OUTSIDE RECORDS SUMMARY | 2025-09-05 15:34 | XMS_ITS | Encounter Summary ---
Author Organization [facility] Address [address] [place] [address] Phone Care Team Providers Care Mop Maker Name Role Phone Iraida Schwartz MD Primary Care Provid er Encounter Details Date Type Department Care Team (Late st Contact Info) Description 08/22/2025 Telephone [facility] Medicine Infectious Diseases [address] [place] [phone] Jessica Villa RMA Social History Tobacco [...] often do you attend chur ch or congregational services? Never 08/18/2025 Do you belong to any clubs o r organizations such as anabaptist groups, unions, fraternal or athletic groups, or [...] any time in the past [address] [facility], were you homeless or living in a fdc (including now)? 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 * Telephone Encounter - Jessica Villa RMA - 08/22/2025 1:08 PM CDT [facility] isn't available to start care until tmrw so Melanie will see him trmw. Corwin understands how to care for a Picc Line. Please call [phone] documented in this encounter Plan of Treatment Not on file documented as of this encounter Visit Diagnoses Not on filedocumented in this encounter Care Teams Mop Maker Relationship Specialty Start Date End Date Iraida Schwartz MD [address] [place] [address] PCP - General Family Practice 02/18/23 documented as of this encounter
--- OUTSIDE RECORDS SUMMARY | 2025-09-05 15:35 | XMS_ITS | Encounter Summary ---
Author Organization [facility] Address [address] [place] [address] Phone Care Team Providers Care Transfer Professor Name Role Phone Iraida Schwartz MD Primary Care Provid er Encounter Details Date Type Department Care Team (Late st Contact Info) Description 09/04/2025 Orders Only [facility] Medicine Infectious Diseases [address] [facility] [address] [place] [address] Papo Harden MD [address] [place] [address] Social History Tobacco Use Types Packs/Day Years [...] 08/18/2025 How often do you attend chur or roman catholic services? Never 08/18/2025 Do you belong to any clubs o r organizations such as scientology groups, unions, fraternal or athletic groups, or [...] any time in the past 12 m [facility], were you homeless or living in a skilled nursing (including now)? 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 Gender Identity Not on file Sexual Orientation Not on file documented as of this encounter Ordered Prescriptions Prescription Sig Dispense Quantity Refills Last Filled Start Date End Date doxycycline (VIBRAMYCIN) 100 mg capsuleIndications: Bone/Joint Infection Take 1 tablet/caps ule (100 mg total) by mouth every 12 (twelve) hours 60 tablet/capsule 5 09/04/2025 03/03/2026 documented in this encounter Plan of Treatment Not on file documented as of this encounter Visit Diagnoses Not on filedocumented in this encounter Care Teams Transfer Professor Relationship Specialty Start Date End Date Iraida Schwartz MD [address] [place] [address] PCP - General Family Practice 02/18/23 documented as of this encounter
--- OUTSIDE RECORDS SUMMARY | 2025-09-05 15:35 | XMS_ITS | Clinical Summary ---
Author Organization [facility] Address [address] [place] [address] Care Team Providers Care Cpr Ambulance Driver Name Role Phone Iraida Schwartz MD Primary Care Provider [phone] Allergies Active Allergy Reactions Criticality Noted Date Comments Amoxicillin Seizure 12/28/2018 Cyclobenzaprine Seizure 03/26/2022 Medications levETIRAcetam 500 MG tablet Take 1 tablet (500 mg total) by mouth 2 (two) times daily. 60 tablet 9 Active lisinopril 40 MG tablet Take 1 tablet (40 mg total) by mouth daily. Active lamoTRIgine 100 MG tablet Take 1 tablet (100 mg total) by mouth daily. Active buPROPion (WELLBUTRIN) 75 MG tablet Take 1 tablet (75 mg total) by mouth 2 (two) times daily. Active CLOMID 50 MG Tab Take 1 tablet by mouth daily. For infertility - 4 Active ibuprofen (MOTRIN) 800 MG tabletIndicatio ns:Rupture of left triceps tendon, initial encounter take 1 tablet by mouth every 8 hours as needed for pain 90 tablet 4 Active testosterone cypionate (DEPO TESTOSTERONE) 200 MG/ML injection Inject 1 mL (200 mg total) into the muscle once. 4 Active traMADol (ULTRAM) 50 MG tabletIndicatio ns:Acute Pain < 3 Day Supply Take 1 tablet (50 mg total) by mouth every 6 (six) hours as needed for Pain. Indications: Acute Pain < 3 Day Supply 10 tablet 5 Active Active Problems Problem Noted Date Diagnosed Date Rupture of left triceps tendon, initial encounte r 02/16/2024 Immunizations Immunization Administration Dates Next Due PFIZER COVID-19 (ORIGINAL FO RMULATION, PURPLE CAP) mRNA, LNP-S, PF, 30 MCG/0.3 ML DOSE 12/31/2020,12/10/2020 Family History Medical History Relation Comments Cancer Father Prostate Hypertension Father Hypertension Mother Relation Status Comments Father Alive Mother Alive Social History Tobacco Use Types Packs/Day Years Used Date Smoking Tobacco: Never Passive Smoke Exposure: Never Smokeless Tobacco: Never Tobacco Cessation:Counseling Given: No Alcohol Use Standard Drinks/Week Comments Never 0 (1 standard drink = 0.6 oz pur e alcohol) AUDIT-C Answer Date Recorded Frequency of Alcohol Consumption Never 12/28/2018 Average Number of Drinks Not on file 019 Frequency of Binge Drinking Not on file 12/04 PHQ-2 Answer Date Recorded Patient Health Questionnaire-2 Score 0 02/16/2024 Sex and Gender Information Value Date Recorded Sex Assigned at Not on file Legal Sex Male 7:39 PM CDT Gender Identity Not on file Sexual Orientation Straight 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 Last Filed Vital Signs Vital Sign Reading Time Taken Comments Blood Pressure 127/82 03/20/2025 5:10 PM CDT Pulse 90 03/20/2025 5:08 PM CDT Temperature 36.9 C (98.5 F) 03/20/2025 5:08 PM CDT Respiratory Rate 18 03/20/2025 5:08 PM CDT Oxygen Saturation 97% 03/20/2025 5:08 PM CDT Inhaled Oxygen Concentration - - Weight 97.5 kg (215 lb) 03/20/2025 5:08 PM CDT Height 190.5 cm (6' 3) 03/20/2025 5:08 PM CDT Body Mass Index 26.87 03/20/2025 5:08 PM CDT Plan of Treatment Health Maintenance Due Date Last Done Comments Colorectal Cancer Screening Colonoscopy (10 Years) 1975 Annual Physical 1978 Hepatitis C 1993 DTaP, Tdap and Td Vaccines ( 1 - Tdap) 1994 Hepatitis B Vaccines (1 of 3 - 19+ 3-dose series) 1994 PHQ-2 (Physician [place]) 11/02/2024 02/16/2024 COVID-19 Vaccine (3 - 2024-2 6 season) 2025 12/31/2020, 12/10/2020 Influenza Adult (#1) 2025 08/05/2018, 07/18/2016, 07/23/2015 Hepatitis A Vaccines Aged Out No long er eligible based on patient's age to complete this topic Meningococcal B Vaccine Aged Out No l onger eligible based on patient's age to complete this topic Meningococcal Vaccine Aged Out No luma julio eligible based on patient's age to complete this topic Pneumococcal Vaccine: Pediatrics (0 to 5 Years) and At-Risk Patients (6 to 49 Years) Aged Out No longer eligible b ased on patient's age to complete this topic RSV Immunizations Under 20 Months Aged Out No longer eligible b ased on patient's age to complete this topic Medical Devices Implanted Type Area Actimize Architect Device Identifier Shelf Expiration Date Model / Serial / Lot Implant [place] [employer] Bio Swivelock 4.75mm - [id number] Implanted:Qty: 1 on 02/24/2024 by Darwin Ryan MD at [facility] [place] Left: Elbow [employer] [id number] 11/01/2027 [id number] / / [id number] Explanted Type Area Actimize Architect Device Identifier Shelf Expiration Date Model / Serial / Lot System Fixation 19.1mm 4.75mm Swivelock Biocomposite Secondary - [id number] Explanted:Qty: 1 on 02/24/2024 by Darwin Ryan MD at [facility] [place] Left: Elbow [employer] [id number] 09/01/2027 [id number] / / [id number] [place] [address] [address] [facility] Care Teams Cpr Ambulance Driver Relationship Specialty Start Date End Date Iraida Schwartz MD [address] [place] [address] PCP - General FAMILY PRACTICE 04/12/23
--- OUTSIDE RECORDS SUMMARY | 2025-09-05 15:35 | XMS_ITS | Encounter Summary ---
Author Name [facility] Organization [facility] Address [address] [place] [address] Care Team Providers Care Refrigeration Lead Name Role Phone СЕРГЕЙ MONDRAGON Primary Care [...] section includes the information on record at [facility] for the Encounter. Date/Time Encounter Type Encounter Description Reason Pro vider Source IHE Encounter Template Text not used by [facility]
--- OUTSIDE RECORDS SUMMARY | 2025-09-05 15:35 | XMS_ITS | Patient Health Record ---
Author Organization [facility] Address [address] [place] [address] Care Team Providers Care Medicinal Chemist Name Role Phone Sami Barrios Unavailable [phone] DonnaImtiaz villa Unavailable [phone] ALLERGIES Allergen (clinical drug ingredient) Drug/Non Drug Allergy documented on EMR Reaction Allergy Type Onset Date Status amoxicillin Amoxicillin Unknown Drug Allergy Act inder Flexeril Unknown Drug Allergy Active RESULTS Component Value Reference Range Notes CT Right Shoulder without Co ntrast Reviewed date:09/26/2024 01:20:31 PM Interpretation:[facility] Performing Lab: Notes/Report: VA CBC, CMP, ESR, CRP (Not yet reviewed by provider) Interpretation: Performing Lab: Notes/Report: X ray : Shoulder 4 views R, AP, Grashey, Outlet, Axillary Reviewed date:06/14/2025 11:36:56 AM Interpretation: Performing Lab: Notes/Report: X ray : Shoulder 4 views R, AP, Grashey, Outlet, Axillary Reviewed date:06/12/2025 02:39:20 PM Interpretation: Performing Lab: Notes/Report: X ray : Shoulder 4 views R, AP, Grashey, Outlet, Axillary Reviewed date:06/09/2025 01:05:39 PM Interpretation: Performing Lab: Notes/Report: X ray : Shoulder 4 views R, AP, Grashey, Outlet, Axillary Reviewed date:06/07/2025 08:34:22 AM Interpretation: Performing Lab: Notes/Report: REASON FOR REFERRAL Reason eval/treat per cabrera col s/p Right Shoulder Revision Reverse TSA/antibiotic spacer removal; I & D ( DOS 1/1611-18-24) Diagnosis 1 Orthopedic aftercare (Z47.89) Referral Organization [facility] Referring Provider First Name Sami Referring Provider Last Name Sophie Referring Provider Speciality Orthopedic Surgery Referred Provider Specialty Physical [facility] Referral Priority Routine Reason Cont Therapy per pro tocol s/p Right Shoulder Revision Reverse TSA/antibiotic spacer removal; I & D ( DOS 11/17/2411-18-24) Diagnosis 1 Orthopedic aftercare (Z47.89) Referral Organization [facility] Referring Provider First Name Sami Referring Provider Last Name Sophie Referring Provider Speciality Orthopedic Surgery Referred Provider Specialty Physical [facility] Referral Priority Routine Reason Level 3 Diagnosis 1 Right shoulder pain, unspecified chronicity (M25.511) Referred Organization [facility] Referred Provider Sami Barrios Referred Address [address] ,[facility] [address], [place],[address], Referred Provider Specialty Orthopedic S urgery Referral Priority Routine Reason s/p Right Shoulder R evision Reverse TSA/antibiotic spacer removal; I & D ( DOS 11/17/2411-18-24) massage therapy Diagnosis 1 Orthopedic aftercare (Z47.89) Referral Organization [facility] Referring Provider First Name Sami Referring Provider Last Name Sophie Referring Provider Speciality Orthopedic Surgery Referred Provider Specialty Other Medica l Care Referral Priority Routine Reason Level 3 Diagnosis 1 Right shoulder pain, unspecified chronicity (M25.511) Referred Organization [facility] Referred Provider Sami Barrios Referred Address [address], [place],[address], Referred Provider Specialty Orthopedic S urgery Referral Priority Routine MEDICATIONS Medication SIG (Take, Route, Frequency, Duration) Notes Start Date End Date Status Ketorolac Tromethamine 10 MG 1 tablet with food or milk as needed Orally every 8 hrs for 4 day(s) 11/22/2024 Unknown Bactrim DS 800-160 MG 1 tablet Orally Tw ice a day for 7 days 06/06/2025 Active PROzac Unknown Lytle Unknown Lexapro Unknown buPROPion HCl Unknow n Mobic 15 MG 1 tablet Orally Once a day for 30 day(s) 04/17/2020 Unknown lamoTRIgine Unknown Percocet 5-325 MG 1 tablet as needed Orally every 6 hours as needed for pain for 7 days 10/18/2024 Unknown Ketorolac Tromethamine 10 MG 1 tablet with food or milk as needed Orally every 8 hrs for 4 day(s) 04/19/2025 Active HYDROcodone-Acetaminophen 5-325 MG 1 tablet as needed Orally every 8 hrs prn for 8 days 10/06/2024 Unknown traMADol HCl 50 MG 1 tablet as needed Orally every 8 hrs as needed for pain for 10 days 01/05/2025 Active Ketorolac Tromethamine 10 MG 1 tablet with food or milk as needed Orally three times a day for 4 days 09/30/2024 Unknown hydrOXYzine Pamoate 50 MG 1 capsule 3 ti mes daily orally tid for 10 days Active HYDROcodone-Acetaminophen 5-325 MG 1 tablet as needed Orally every 6 hrs for 7 days 09/26/2024 Unknown CeleBREX 100 MG 1 capsule with food Orally Once a day for 30 days Active Percocet 5-325 MG 1 tablet as needed Orally every 4 hrs prn pain for 7 days 12/05/2024 Unknown Ketorolac Tromethamine 10 MG 1 tablet with food or milk as needed Orally every 8 hrs for 4 day(s) 06/08/2025 Active Percocet 10-325 MG 1 tablet as needed Orally every 4 hours PRN pain for 7 days 11/24/2024 Unknown Keppra Unknown Lisinopril Unknown Abilify Unknown PROBLEMS Problem Type ICD Code Onset Dates Problem Status W/U Status Risk SNOMED Code Notes Problem 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7) Active confirmed Problem Arthritis of right shoulder region (M19.011) Active confirmed 2982191630209466 Problem Tear of right rotator cuff, unspecified tear extent, unspecified whether traumatic (M75.101) Active confirmed 23273602673375360 VITAL SIGNS Height 75 in 06/06/2025 Weight 218 lbs 06/06/2025 BMI 27.25 kg/m2 06/06/2025 PROCEDURES Procedure Date Ordered Date Performed Result Body Sit e Right Shoulder Revision Arthoplasty with Antibiotic Spacer Placement and Hradware Removal 09/12/2024 09/12/2024 [facility]-pending auth # [id number] [facility] ([id number]) 09/26/2024 09/26/2024 N/A Right Shoulder Closed Reduction of Prosthesis, possible Open Reduction 09/26/2024 09/26/2024 [facility] #[id number] Right shoulder aspiration under Fluroscopy 10/28/2024 10/28/2024 [place] Right Shoulder Antibiotic Spacer Removal and Revision Right Shoulder Arthroplasty 10/28/2024 10/28/2024 [facility] Encounters Encounter Location Date Provider Diagnosis [facility] [address], [place] [address] 09/26/2024 Sami [facility] [place] [address], [place] [address] 09/19/2024 Sami Barrios [facility] [place] [address], [place] [address] 09/12/2024 Sami Barrios [facility] aftercare Z47.89 [facility] [address], [place] [address] 09/26/2024 Sami Barrios [facility] Z47.89 ; Dislocation of other internal joint prosthesis, initial encounter T84.028A ; Presence of right artificial shoulder joint Z96.611 and Right shoulder pain M25.511 [facility] [address], [place] [address] 10/28/2024 Sami Barrios [facility] Z47.89 ; Status post total replacement of right shoulder Z96.611 ; Infection and inflammatory reaction due to other internal joint prosthesis, subsequent encounter T84.59XD ; Pre-op testing Z01.818 ; Dislocation of right shoulder joint, subsequent encounter S43.004D and Pain in right shoulder M25.511 [facility] [place] [address] [place] [address] 11/28/2024 Sami Barrios [facility] Z47.89 ; Status post total replacement of right shoulder Z96.611 ; Aftercare following joint replacement surgery Z47.1 and Right shoulder pain M25.511 [facility] [place] [address], [place] [address] 12/26/2024 Sami Barrios [facility] Z47.89 and Right shoulder pain M25.511 [facility] [place] [address], [place] [address] 02/07/2025 Sami Barrios [facility] Z47.89 and Right shoulder pain M25.511 [facility] [place] [address], [place] [address] 04/12/[address] [facility] [place] [address], [place] [address] 03/22/2025 Sami Barrios Right shoulder pain M25.511 [facility] [place] [address], [place] [address] 06/14/[address] [facility] [place] [address], [place] [address] 04/19/2025 Sami Barrios Right shoulder pain M25.511 [facility] [place] [address], [place] [address] 06/06/2025 Sami Barrios [facility] Z47.[address] [facility] [place] [address], [place] [address] 06/06/2025 Sami Barrios [facility] Z47.89 ; Status post total replacement of right shoulder Z96.611 ; Pain, joint, shoulder, right M25.511 and Infection of skin of knee L08.9 [facility] [address] [place] [address] 09/08/2024 Sami Barrios Right shoulder pain M25.511 ; Mechanical loosening of other internal prosthetic joint, initial encounter T84.038A and Status post total replacement of right shoulder Z96.[address] [facility] [address] [place] [address] 09/15/2024 Sami Barrios Infection and inflammatory reaction due to other internal joint prosthesis, initial encounter T84.59XA and Presence of unspecified artificial shoulder joint Z96.619 [facility] [address] [place] [address] 09/27/2024 Sami Barrios Status post total replacement of right shoulder Z96.611 and Dislocation of right shoulder joint S43.004A [facility] [address] [place] [address] 11/17/2024 Sami Barrios Acquired absence of right shoulder Z89.231 [facility] [address] [place] [address] 11/18/2024 Sami Barrios Status post total replacement of right shoulder Z96.611 and Hematoma of right shoulder S40.011[facility] [address] [facility] [address] [place] [address] 09/07/2024 Sami Barrios [facility] [place] [address] [place] [address] 09/09/2024 Sami Barrios [facility] [address] [place] [address] 09/22/2024 Sami Barrios [facility] [place] [address] [place] [address] 09/23/[address] [facility] [place] [address] [place] [address] 10/04/[address] [facility] [place] [address] [place] [address] 10/06/2024 Sami Barrios [facility] [address] [place] [address] 10/10/[address] [facility] [place] [address] [place] [address] 10/11/2024 Sami Barrios Status post total replacement of right shoulder Z96.611 [facility] [place] [address] [place] [address] 10/18/2024 Sami Barrios Status post total replacement of right shoulder Z96.611 [facility] [place] [address] [place] [address] 10/19/[address] [facility] [place] [address] [place] [address] 10/21/[address] [facility] [place] [address] [place] [address] 10/24/2024 Sami Barrios [facility] Z47.89 [facility] [place] [address] [place] [address] 10/31/[address] [facility] [place] [address] [place] [address] 11/03/2024 Sami Sophie [facility] Z47.89 [facility] [address] [place] [address] 11/04/[address] [facility] [place] [address] [place] [address] 11/08/2024 Sami Barrios [facility] Z47.89 [facility] [address] [place] [address] 11/18/[address] [facility] [place] [address] [place] [address] 11/22/2024 Sami Barrios [facility] [address] [place] [address] 11/22/2024 Sami Barrios [facility] after[facility] Z47.[address] [facility] [place] [address] [place] [address] 11/24/2024 Sami Barrios [facility]opedic [facility] Z47.89 [facility] [address] [place] [address] 11/30/2024 Sami Barrios Orthopedic aftercare Z47.[address] [facility] [place] [address] [place] [address] 12/01/[address] [facility] [place] [address] [place] [address] 12/02/[address] [facility] [place] [address] [place] [address] 12/05/2024 Sami Barrios [facility] after[facility] Z47.89 [facility] [place] [address] [place] [address] 12/05/2024 Sami Barrios [facility] after[facility] Z47.[address] [facility] [place] [address] [place] [address] 12/09/2024 Sami Barrios [facility] after[facility] Z47.89 [facility] [place] [address] [place] [address] 12/13/2024 Sami Barrios Orthopedic aftercare Z47.89 [facility] [address] [place] [address] 12/19/2024 [facility] Donna Orthopedic aftercare Z47.89 [facility] [place] [address] [place] [address] 01/02/[address] [facility] [place] [address] [place] [address] 01/04/2025 Sami Barrios [facility] after[facility] Z47.89 [facility] [place] [address] [place] [address] 01/17/[address] [facility] [place] [address] [place] [address] 01/18/2025 Sami Barrios Orth[facility] after[facility] Z47.89 [facility] [place] [address] [place] [address] 02/02/[address] [facility] [place] [address] [place] [address] 02/14/2025 Sami Barrios Orth[facility] aftercare Z47.[address] [facility] [place] [address] [place] [address] 02/16/[address] [facility] [place] [address] [place] [address] 03/20/[address] [facility] [place] [address] [place] [address] 05/15/[address] [facility] [place] [address] [place] [address] 06/05/[address] [facility] [place] [address] [place] [address] 06/06/[address] [facility] [place] [address] [place] [address] 06/08/2025 Sami Barrios [facility] [place] [address] [place] [address] 06/14/2025 Sami Barrios [facility] [place] [address] [place] [address] 07/12/2025 Sami Barrios ASSESSMENTS Encounter Date Diagnosis Assessment Notes Treatment Notes Treatment Clinical Notes Section Notes 09/12/2024 Orthopedic aftercare (ICD-10 - Z47.89) Corwin has a complicated issue with his shoulder. We performed the scope last week to take cultures and rule out infection. We also removed the screws from the anterior shoulder as they were quite loose and I was concerned that leaving them may cause further neurovascular harm. Unfortunately, 1 of the cultures has grown c. acnes and 3/5 of the cultures have shown positive Gram stains for Gram-negative rods. Therefore, we need to consider revision of the total shoulder with removal of the implants and implantation of a antibiotic spacer. I relayed these findings to Corwin and his today. I also have spoken with the Infectious Disease team here at [place] who agrees with this plan. We will obtain blood cultures today to help with PICC line placement after surgery. We will plan to perform the revision surgery this coming . We will take out the humeral implant as well as the glenoid side. We will attempt if at all possible to remove the broken screw within the glenoid with the secondary goal of salvaging as much glenoid as possible given the prior Latarjet which has failed. I did refill his Percocet today until surgery. I talked about the risks of surgery, including but not limited to infection further, damage to neurovascular structures, namely the axillary nerve, blood loss, stiffness, postoperative crepitus, postoperative instability, periprosthetic fracture, and need for further surgery. The plan would be to place the antibiotic spacer for 6-8 weeks as well as a PICC line. We would obtain new laboratory work prior to proceeding with a second-stage revision and reimplantation of a reverse total shoulder arthroplasty. All questions were answered. Him and his are agreeable to the plan. We will move forward with surgery this . 09/26/2024 Orthopedic aftercare (ICD-10 - Z47.89) Corwin was doing quite well after his revision shoulder arthroplasty and placement of antibiotic spacer up until Thursday when he had an episode where he reached for something that was falling and felt a pop in his shoulder. On radiographs today, his spacer is dislocated anteriorly. I suspect this occurred at the time of his injury on Thursday. He has had a harder time getting comfortable over the weekend with increased pain. He denies any neurovascular complications since the injury including numbness/tingling that is increased or changes in coloration or blood flow to the hand. Unfortunately this is a challenging problem in his case. He ultimately needs a revision shoulder arthroplasty to a reverse implant at some point in the not distant future. However we do need to complete his course of IV antibiotics and give time for repeat labs to be drawn prior to performing this procedure. We also obtained a CT scan today it is visit to help better quantify the degree of glenoid bone loss. He does have a fair amount of bone loss on his CT which is concerning for the degree of fixation after reverse arthroplasty. Regarding the spacer dislocation, I have several concerns. Principally, the anterior dislocation does have the potential to cause neurovascular compromise. I relayed this to him today. He does not seem to be having any these symptoms currently which is good but if he were to develop any numbness or tingling or changes in coloration of the arm he needs to let me know right away. This would cause the situation to be more urgent. We talked about our options. One would be to perform a closed reduction of the spacer under anesthesia. It would be nice to get the shoulder reduced. However, with his lack of subscapularis and his glenoid deformity/bone loss, it is possible that the spacer may dislocate again despite our best efforts to maintain its position. I am also concerned that the spacer may dissociate from the humeral bone or lead to fracture of the humerus during attempted reduction. Second, we could perform an open reduction of the spacer. He is not super keen on this idea given that he has had 2 open procedures in his shoulder over the past several weeks. I tend to agree that if not absolutely necessary I would like to try to avoid this. The other option is to leave the spacer where it lies today, knowing that it is dislocated and not causing any neurovascular compromise. Again, I reiterated that if he begins to have neurovascular symptoms he needs to let me know immediately and we need to perform the reduction at that time. He is going to think about these options and talk to his . Ultimately, the goal is to get through the next 6-8 weeks to the point where we could perform the revision procedure, however I am concerned about the degree of bone loss and what this may mean for his revision procedure. Once I see his plan via blueprint we will have a bit better idea of what our options are moving forward. I did provide him with a new sling today given his was not functioning well for him. After discussing further with him and his , he would like to attempt a closed reduction of the shoulder which we will try to do tomorrow prior to the holiday. 09/26/2024 Dislocation of other internal joint prosthesis, initial encounter (ICD-10 - T84.028A) 10/28/2024 Orthopedic aftercare (ICD-10 - Z47.89) Gelacio returns approximately 6 weeks after his removal of anatomic total shoulder for infection purposes and placement of an antibiotic spacer. He has finished his course of IV antibiotics. His PICC line was removed yesterday. We will give him a holiday of 1 week and perform an aspiration of the shoulder at that time under fluoroscopic guidance. This was ordered today. We will have him get some lab work done at that time including updated inflammatory markers and a CBC. We will let the aspiration cultures grow for 14 days and provided they are negative we would plan for revision surgery with placement of reverse shoulder arthroplasty on 11/17/2023. He is understanding of this. I have been refilling his Percocets weekly as he is still in some discomfort given the persistent anterior dislocation of the spacer. Surgery would be done at [facility] with a planned 1 night stay. They would receive a supraclavicular nerve block prior to surgery to help with pain control. We discussed the typical postoperative protocol which would involve 3 weeks in his sling for him given that his subscapularis is already deficient. They would start physical therapy at 2 weeks working on passive range of motion. When they come out of the sling they would start working on active range of motion, with the goal of achieving functional range of motion by 10-12 weeks. I warned them that they may not achieve comparable range of motion to the contralateral side with a reverse implant. He is going to be at more risk of stiffness given that he has been in his sling now for 6 weeks after his removal of hardware. At the 10-12 week norma they would start strengthening activities with the goal of achieving protective strength by 4-6 months. They may continue to see improvement in the strength up to 1 year. We discussed the risks, benefits, and alternatives, which include, but are not limited to: further infection, wound dehiscence, neurovascular injury, blood loss, stiffness, periprosthetic fracture, dislocation, acromial/scapular spine stress fracture, hardware failure/loosening, continued pain, or the need for future surgery. The patient is understanding of these risks and would like to proceed. 10/28/2024 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) 11/28/2024 Orthopedic aftercare (ICD-10 - Z47.89) Gelacio returns approximately 2 weeks out from his right shoulder revision reverse shoulder arthroplasty and subsequent hematoma I and D. there are no wound issues at this point. It is healing nicely. His pain is starting to be better controlled. We are working on trying to get him off the Percocet completely but we will transition him down to 5 mg tablets upon his next prescription. We will get him into some physical therapy at this point. I will see him back in 4 weeks to check his progress. 11/28/2024 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) 12/26/2024 Orthopedic aftercare (ICD-10 - Z47.89) Gelacio returns for his 6 week visit after revision reverse shoulder arthroplasty. He is doing relatively well. He is starting to transition off of his pain medication. I did refill his Percocet script with the expectation that he will take 1 in the morning and 1 at night and it will last him 2 weeks. This will likely be the last script of Percocet sent. If he needs any additional pain medication we will transition to tramadol. I also sent him a script for Celebrex as he feels that the Celebrex is the anti-inflammatory that has helped him most in the past. We also refilled his hydroxyzine as this seems to be helping him sleep at night. He is to continue physical therapy. He can get out of the sling at this point but he should still be careful that he is not overdoing it with regards to his daily activities. We talked about the risks for dislocation in external rotation and he should avoid any extreme external rotation at this point. His range of motion is otherwise very reasonable and he is satisfied with his result thus far. 12/26/2024 Right shoulder pain (ICD-10 - M25.511) 02/07/2025 Orthopedic aftercare (ICD-10 - Z47.89) Gelacio is now 11 weeks out from his revision reverse shoulder arthroplasty. His motion is progressing. He is still somewhat stiff which is not completely surprising at this point given the number of surgeries and scar tissue he has in his shoulder. He will continue to work with therapy to improve his motion moving forward. He is going to start working on some more aggressive strengthening as well. We talked about activities he should avoid such as pushups and boxing. Regarding the night sweats, I am not too concerned at this point for infection. Certainly it is something we will need to monitor. If he continues to have issues when I see him back in 8 weeks we may consider obtaining some lab work for inflammatory markers. He is okay with this plan. I will see him back in 8 weeks. 02/07/2025 Right shoulder pain (ICD-10 - M25.511) 03/22/2025 Right shoulder pain (ICD-10 - M25.511) 04/19/2025 Right shoulder pain (ICD-10 - M25.511) 06/06/2025 Orthopedic aftercare (ICD-10 - Z47.89) 06/06/2025 Orthopedic aftercare (ICD-10 - Z47.89) Corwin [...] get a 2nd opinion for him at [facility] regarding whether not he needs a cortical allograft to build up the anterior wall the glenoid in order to preserve a bit more glenoid bone and prevent medialization of the glenoid with eccentric reaming posteriorly. I will reach out to Dr. Momin at [facility] and coordinate a consultation with her. We will then be able to determine the best next step for him with regards to his shoulder. 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) 11/18/2024 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) 10/11/2024 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) 10/18/2024 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) 10/24/2024 Orthopedic aftercare (ICD-10 - Z47.89) 11/03/2024 Orthopedic aftercare (ICD-10 - Z47.89) 11/08/2024 Orthopedic aftercare (ICD-10 - Z47.89) 11/22/2024 Orthopedic aftercare (ICD-10 - Z47.89) 11/24/2024 Orthopedic aftercare (ICD-10 - Z47.89) 11/30/2024 Orthopedic aftercare (ICD-10 - Z47.89) 12/05/2024 Orthopedic aftercare (ICD-10 - Z47.89) 12/05/2024 Orthopedic aftercare (ICD-10 - Z47.89) 12/09/2024 Orthopedic aftercare (ICD-10 - Z47.89) 12/13/2024 Orthopedic aftercare (ICD-10 - Z47.89) 12/19/2024 Orthopedic aftercare (ICD-10 - Z47.89) 01/04/2025 Orthopedic aftercare (ICD-10 - Z47.89) 01/18/2025 Orthopedic aftercare (ICD-10 - Z47.89) 02/14/2025 Orthopedic aftercare (ICD-10 - Z47.89) 09/26/2024 Presence of right artificial shoulder joint (ICD-10 - Z96.611) 10/28/2024 Infection and inflammatory reaction due to other internal joint prosthesis, subsequent encounter (ICD-10 - T84.59XD) 11/28/2024 Aftercare following joint replacement surgery (ICD-10 - Z47.1) 06/06/2025 Pain, joint, shoulder, right (ICD-10 - M25.511) 09/08/2024 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 10/28/2024 Dislocation of right shoulder joint, subsequent encounter (ICD-10 - S43.004D) 10/28/2024 Pain in right shoulder (ICD-10 - M25.511) 09/26/2024 Other Imaging review : I independently reviewed a CT scan of the right shoulder from today, 09/26/2024 which demonstrates evidence of anterior dislocation of the antibiotic spacer relative to the glenoid. 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 There is evidence of bony resorption at the site of the prior screw track just deep to the glenoid face anteriorly. Cystic changes are noted throughout the glenoid. 10/28/2024 Other 03/22/2025 America Olivia is now 17 weeks out from his right shoulder revision reverse total shoulder arthroplasty. He is continuing to progress with therapy. He still has limitations with regards to his active and passive range of motion, some of which relates to the capsular stiffness he had prior to surgery and some of which likely relates to the implant positioning as it is anteverted. I shared this with him as I already have. This may be 1 of the reasons why he is having some of the anterior shoulder pain. I think at this point I would recommend continuing to work through this with therapy and anti-inflammatorie s as needed. There are no signs of infection at this point and I do not think there needs to be any new lab work done at this point. The implant does not show any signs of loosening despite the anteverted nature. I will see him back in 3 months to ensure he continues to make progress with therapy. 04/19/2025 America Brizuela is in a difficult [...] have him get a 2nd opinion at [facility] to see if there is anything [...] this is not helping. PLAN OF TREATMENT Pending Test Test Name Order Date X ray : Shoulder 4 views R, AP, Grashey, Outlet, Axillary 12/26/2024 X ray : Shoulder 4 views R, AP, Grashey, Outlet, Axillary 07/01/2024 X ray : Shoulder 4 views R, AP, Grashey, Outlet, Axillary 09/26/2024 X ray : Shoulder 4 views R, AP, Grashey, Outlet, Axillary 10/28/2024 X ray : Shoulder 4 views R, AP, Grashey, Outlet, Axillary 11/28/2024 CBC, CMP, ESR, CRP 10/28/2024 Insurance Providers Payer Name Payer Address Payer Phone Subscriber Number Group Number Insured Name Patient Relationship to Insured Coverage Start Date Coverage End Date [employer] [address] [employer] [phone] [id number] Corwin York Self - patient is the insured [address] [facility] [address] [address] [place] [address] [id number] Corwin York Self - patient is the insured 4 MEDICATIONS ADMINISTERED Medication Instructions Date of Administration Dosage Notes Celestone [id number] 04/17/2020 1 cm3 MEDICAL (GENERAL) HISTORY Medical History History ICD Code Hypertension Seizure anxiety depression Surgical History Surgery Date(Month/Year) Open Reduction Internal Fixa tion Right Shoulder Greater Tuberocity; Arthroscopy; Bankart Repair 11/07/2016 Right total shoulder arthroplasty- RF tricep repair x 2 knee shoulder X 5 Right Shoulder Arthroscopic debridement, Loose Body Removal, Open Hardware Removal 09/08/24 Right Shoulder Revision Reverse TSA/anti biotic spacer removal; I & D 11/17/24/- Hospitalization History Reason Date(Month/Year) Seizure (10/31/16-11/02/16)
--- OUTSIDE RECORDS SUMMARY | 2025-09-05 15:35 | XMS_ITS | Encounter Summary ---
Author Organization [facility] Address [address] [place] [address] Care Team Providers Care High Speed Printer Operator Name Role Phone Iraida Schwartz MD Primary Care Provider [phone] Encounter Details Date Type Department Care Team (Late st Contact Info) Description 05/04/2024 [employer] Message Enc [facility] Orthopedic & Sports Medicine - [place] [address] [place] [address] Milena, [facility] Provider MRI Social History Tobacco Use Types Packs/Day Years [...] Sexual Orientation Straight 12/28/2018 3: 04 PM [employer]IL EXP[employer] documented as of this encounter Plan of Treatment Not on file documented as of this encounter Visit Diagnoses Not on filedocumented in this encounter Care Teams High Speed Printer Operator Relationship Specialty Start Date End Date Iraida Schwartz MD [address] [place] [address] PCP - General FAMILY PRACTICE 04/12/23 documented as of this encounter
--- OUTSIDE RECORDS SUMMARY | 2025-09-05 15:36 | XMS_ITS | Encounter Summary ---
Author Organization [facility] - [facility] Address [address] [place] [id number] Care Team Providers Care Production Cost Estimator Name Role Phone Iraida Schwartz MD Primary Care Provider [phone] Encounter Details Date Type Department Care Team (Late st Contact Info) Description 04/19/2024 [employer] Message Enc [facility] Orthopedic & Sports Medicine - [place] [address] [place] [address] Darwin Ryan MD New loss of some extension. Way tighter. And tough time again at night. 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
--- OUTSIDE RECORDS SUMMARY | 2025-09-05 15:36 | XMS_ITS | Clinical Summary ---
Author Organization [facility] Address [address] [place] [address] Care Team Providers Care Educational Resource Coordinator Name Role Phone Iraida Schwartz MD Primary Care Provid er Allergies Active Allergy Reactions Criticality Noted Date Comments Amoxicillin Seizures High 07/03/2018 Cyclobenzaprine Seizures High 03/26/2022 Medications lisinopriL (PRINIVIL,ZEST RIL) 40 mg tabletIndicati ons:hypertensi on Take 1 tablet (40 mg total) by mouth every morning Active lamoTRIgine (LaMICtal) 25 mg tabletIndicati ons:Depression associated with Bipolar Disorder Take 1 tablet (25 mg total) by mouth every morning Active buPROPion XL (WELLBUTRIN XL) 150 mg 24 hr tabletIndicati ons:Anxiety with Depression Take 1 tablet (150 mg total) by mouth every morning Active escitalopram (LEXAPRO) 10 mg tabletIndicati ons:Anxiety with Depression Take 1 tablet (10 mg total) by mouth every morning Active celecoxib (CeleBREX) 200 mg capsuleIndicat ions:Pain Take 1 capsule (200 mg total) by mouth 2 (two) times a day for 14 days 28 capsule 5 Active docusate sodium (COLACE) 100 mg capsuleIndicat ions:constipat ion Take 1 capsule (100 mg total) by mouth 2 (two) times a day 30 capsule 5 Active sodium chloride 0.9% flush syringe Administer 10 mL into catheter every 12 (twelve) hours 5 Active sodium chloride 0.9% flush syringe Administer 10 mL into catheter as needed for line care 5 Active heparin 10 unit/mL syringe flush syringeIndicat ions:Maintain Patency of Indwelling Vascular Catheter Administer 5 mL (50 Units total) into catheter every 12 (twelve) hours 5 Active aspirin 81 mg enteric coated tabletIndicati ons:prevention of thrombosis Take 1 tablet (81 mg total) by mouth 2 (two) times a day 60 tablet 5 Active acetaminophen (TYLENOL) 500 mg tablet Take 2 tablets (1,000 mg total) by mouth every 8 (eight) hours 90 tablet 1 5 Active doxycycline (VIBRAMYCIN) 100 mg capsuleIndicat ions:Bone/Join t Infection Take 1 tablet/capsule (100 mg total) by mouth every 12 (twelve) hours 60 tablet/capsu le 5 5 03/03/20 26 Active HYDROcodone-ac etaminophen (NORCO) 5-325 mg per tabletIndicati ons:Pain Take 1 tablet by mouth every 6 (six) hours as needed for pain 28 tablet 5 Active acetaminophen 500 mg capsuleIndicat ions:Pain Take 2 capsules (1,000 mg total) by mouth every 6 (six) hours 120 tablet 5 08/21/20 25 Discontinu ed(Stop Taking at Discharge) aspirin 81 mg enteric coated tabletIndicati ons:Deep Vein Thrombosis Prevention Take 1 tablet (81 mg total) by mouth 2 (two) times a day for 14 days 28 tablet 5 08/21/20 25 Discontinu ed(Stop Taking at Discharge) oxyCODONE (ROXICODONE) 5 mg immediate release tabletIndicati ons:Pain Take 2 tablet (10 mg) every 4 hours as needed for pain 42 tablet 5 08/08/20 25 Discontinu ed(Reorder ) oxyCODONE (ROXICODONE) 5 mg immediate release tabletIndicati ons:Pain Take 1 tablet (5 mg total) by mouth every 4 (four) hours as needed for pain 28 tablet 5 08/14/20 25 Discontinu ed(Therapy completed) HYDROcodone-ac etaminophen (NORCO) 5-325 mg per tabletIndicati ons:Pain Take 1 tablet by mouth every 6 (six) hours as needed for pain for up to 7 days 28 tablet 5 08/21/20 25 Discontinu ed(Stop Taking at Discharge) oxyCODONE 5 mg tablet, oral onlyIndication s:Pain Take 5 mg by mouth every 4 (four) hours as needed (pain) Take only for moderate to severe pain 20 tablet 5 08/21/20 25 Discontinu ed(Reorder ) oxyCODONE 5 mg tablet, oral onlyIndication s:Pain Take 10 mg by mouth every 4 (four) hours as needed (pain) for up to 7 days Take only for moderate to severe pain 48 tablet 5 08/28/20 HYDROcodone-ac etaminophen (NORCO) 5-325 mg per tabletIndicati ons:Pain Take 1 tablet by mouth every 6 (six) hours as needed for pain 28 tablet 5 08/31/20 25 Discontinu ed(Reorder ) HYDROcodone-ac etaminophen (NORCO) 5-325 mg per tabletIndicati ons:Pain Take 1 tablet by mouth every 6 (six) hours as needed for pain 28 tablet 5 09/04/20 25 Discontinu ed(Reorder ) Active Problems Problem Noted Date Diagnosed Date High risk medication use 08/17/2025 Assessment & Plan (08/21/2025 2:38 PM CDT): Ceftriaxone is a cephalosporin class antibiotic that can cause rash/eosinophilia and pseudocholelithiasis (gallbladder sludging) or hepatitis. Rarely, ceftriaxone can cause drug fever, hepatitis, neutropenia, thrombocytopenia, hemolytic anemia, cholecystitis, or interstitial nephritis. - Please order weekly CBC and CMP while on therapy Assessment & Plan (08/18/2025 1:58 PM CDT): Daptomycin is generally well tolerated. Weekly CPK should be checked to monitor for dose dependent CPK elevation with or without myopathy. Daptomycin may also cause LFT, LDH, and INR elevations. INR elevation is falsely prolonged and there is no anticoagulation effect in vivo. This falsely elevated INR can be minimized by drawing the INR 24 hours after daptomycin is administered. Rarely, daptomycin can cause neuropathy, jaundice, or eosinophilic pneumonia. CBC and CMP should be checked 1x/week while on the drug. Daptomycin discontinuation in patients with elevated CPK should occur according to the following conditions: Asymptomatic patients - discontinue daptomycin if the CPK is >10x the upper limit of normal. Symptomatic patients or sedated/non-verbal patients, discontinue daptomycin if the CPK is >5x the upper limit of normal. - Please order weekly CBC, weekly CMP, weekly CK and assessment for myalgias Ceftriaxone is a cephalosporin class antibiotic that can cause rash/eosinophilia and pseudocholelithiasis (gallbladder sludging) or hepatitis. Rarely, ceftriaxone can cause drug fever, hepatitis, neutropenia, thrombocytopenia, hemolytic anemia, cholecystitis, or interstitial nephritis. - Please order weekly CBC and CMP while on therapy Assessment & Plan (08/17/2025 2:56 PM CDT): Vancomycin can cause renal impairment, neutropenia, eosinophilia, DRESS, ototoxicity, and thrombocytopenia. - Please order CBC once weekly, BMP twice weekly, vancomycin trough twice weekly Ceftriaxone is a cephalosporin class antibiotic that can cause rash/eosinophilia and pseudocholelithiasis (gallbladder sludging) or hepatitis. Rarely, ceftriaxone can cause drug fever, hepatitis, neutropenia, thrombocytopenia, hemolytic anemia, cholecystitis, or interstitial nephritis. - Please order weekly CBC and CMP while on therapy Penicillin allergy 08/17/2025 Assessment & Plan (08/21/2025 2:38 PM CDT): PCN allergy Patient has an allergy to PCN listed in chart. Unclear if this is still an issue but avoiding PCNs at this time - Patient counseled on need to see sodder after discharge to have official testing done to remove allergy from chart -- There is a higher all cause mortality associated with chart history of PCN allergy Assessment & Plan (08/18/2025 1:58 PM CDT): PCN allergy Patient has an allergy to PCN listed in chart. Unclear if this is still an issue but avoiding PCNs at this time - Patient counseled on need to see sodder after discharge to have official testing done to remove allergy from chart -- There is a higher all cause mortality associated with chart history of PCN allergy Assessment & Plan (08/17/2025 2:57 PM CDT): PCN allergy Patient has an allergy to PCN listed in chart. 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 -- Requested doxy and clindamycin susceptibility for C.acnes for PO stepdown - Considered and discussed option of rifampin with patient. 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 Discussed with patient to clarify his seizure history after exposure to amoxicillin, befor antibiotic recommendations -- Patient with seizure on same day as amox, though would be atypical allergy. More recently patient has tolerated cephalexin without issue, and I discussed that risk for reaction to 3rd gen cephalosporin would likely be quite low. - Would start vanc and CTX while awaiting cultures and susceptibilities - Potential d/c with dapto/CTX if cultures are negative, or more specific abx based on culture results. 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 07/18/2025 Right shoulder pain 06/21/2025 History of arthroplasty of right shoulder 2024 Encounters Date Type Department Care Team Description 09/04/2025 Orders Only [facility] Medicine Infectious Diseases [address] [facility] Medical Office Building [address] [place] [address] Papo Harden MD 09/01/2025 Documentation [facility] Medicine Infectious Diseases [address] [facility] [address] [place] [address] Sherri Cartagena RN Opat Progress/Monitoring 08/29/2025 11:50 AM CDT - 08/29/2025 11:59 PM CDT Hospital Encounter [facility] Lab [address] [place] [address] Discharge Disposition: Discharge to home or self care 08/28/2025 2:00 PM CDT Office Visit [facility] Orthopaedic [facility] [address] [facility] 12th [place] [address] [place] [address] Karen Momin MD Status post reverse arthroplasty of right shoulder (Primary Dx); Infection of prosthetic shoulder joint, subsequent encounter 08/28/2025 1:45 PM CDT - 08/28/2025 11:59 PM CDT Hospital Encounter [facility] [address] [place] [address] Status post reverse arthroplasty of right shoulder Discharge Disposition: Discharge to home or self care 08/23/2025 [facility] [address] [facility] [address] [place] [address] Ewa Dee 08/22/2025 Telephone [facility] Medicine Infectious Diseases [address] [address] Jessica Villa RMA 08/21/2025 [facility] [address] [address] Jessica Villa RMA 08/21/2025 Documentation [facility] Medicine Infectious Diseases [address] [place] [address] Building [address] [place] [address] Papo Harden MD 08/18/2025 Documentation [facility] Medicine Infectious Diseases [address] [place] [address] Building [address] [place] [address] [phone] Papo Harden MD 08/16/2025 11:37 AM CDT Anesthesia Event [facility] Operating Room [address] [place] [address] Nita García DO Dippolito, Jenny Irene, NP 08/16/2025 11:00 AM CDT - 08/16/2025 1:44 PM CDT Surgery [facility] Operating Room [address] Andre[address] Knapp[place] [address] Karen Momin MD IRRIGATION AND DEBRIDEMENT - SHOULDER 08/15/2025 6:07 PM CDT - 08/21/2025 2:28 PM CDT Hospital Encounter [facility] [address] [address] [place] [address] Karen Momin MD 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 Radiology [facility] ([facility]) [address] [place] [address] Status post reverse arthroplasty of right shoulder Discharge Disposition: Discharge to home or self care 07/31/2025 2:15 PM CDT Office Visit [facility] [address] [facility] 12th [place] [address] [place] [address] Karen Momin MD Status post reverse arthroplasty of right shoulder (Primary Dx) 07/20/2025 Orders Only [facility] [address] [place] [address] 2nd Floor [address] [place] [address] Karen Momin MD 07/18/2025 2:55 PM CDT - 07/18/2025 6:20 PM CDT Surgery [facility] Operating Room [address] [address] [address] Karen Momin MD Right Shoulder Irrigation and Debridement 07/18/2025 1:55 PM CDT Anesthesia Event [facility] Operating Room [address] [address] [address] Jeremy Bermeo MD Keeline, Monica Marie, MD 07/18/2025 12:40 PM CDT - 07/19/2025 2:19 PM CDT Hospital Encounter [facility] [address] [address] [place] [address] Karen Momin MD History of arthroplasty of right shoulder (Primary Dx); Painful orthopaedic hardware; Chronic right shoulder pain Discharge Disposition: Discharge to home or self care 07/17/2025 [facility] [address] [facility] 2nd Floor [address] [place] [address] Karen Momin MD 07/14/2025 Telephone [facility] Medicine Orthopaedic Surgery [address] [facility] 2nd Floor [address] [place] [address] Karen Momin MD 07/12/2025 7:30 AM CDT Pre-Admission Testing [facility] for Preoperative Assessment and Planning [facility] ([facility]) [address] [place] [address] Preoperative testing (Primary Dx); Right shoulder pain, unspecified chronicity; History of arthroplasty of right shoulder 06/29/2025 7:20 AM CDT - 06/29/2025 11:59 PM CDT Hospital Encounter [facility] Radiology at [facility] [address] [place] [address] Thierry Worthington MD PhD Status post reverse arthroplasty of right shoulder; Right shoulder pain, unspecified chronicity Discharge Disposition: Discharge to home or self care 06/28/2025 Orders Only [facility] [address] [facility] 12th [place] [address] [place] [address] Karen Momin MD Status post reverse arthroplasty of right shoulder (Primary Dx) 06/28/2025 Telephone [facility] Radiology [address] [place] [address] Lourdes Harding, BBrie 06/27/2025 Orders Only [facility] [address] [facility] 2nd Floor [address] [place] [address] Dania Anderson 06/27/2025 Telephone [facility] Medicine Orthopaedic Surgery [address] [facility] 2nd Floor [address] [place] [address] Dania Anderson 06/21/2025 Orders Only [facility] Medicine Orthopaedic Surgery [address] [facility] 12th [place] [address] [place] [address] Karen Momin MD 06/20/2025 Telephone [facility] Medicine Orthopaedic Surgery [address] [facility] 12th [place] [address] [place] [address] Karen Momin MD 06/16/2025 Telephone [facility] [address] [facility] 12th [place] [address] [place] [address] Karen Momin MD 06/15/2025 6:42 AM CDT - 06/15/2025 11:59 PM CDT Hospital Encounter [facility] [address] [place] [address] Karen Momin MD Right shoulder pain, unspecified chronicity Discharge Disposition: Discharge to home or self care 06/15/2025 Telephone [facility] [address] [facility] 2nd Floor [address] [place] [phone] Karen Momin MD 06/14/2025 11:00 AM CDT Office Visit [facility] [address] [place] [address] 2nd Floor [address] [place] [address] Karen Momin MD Status post reverse arthroplasty of right shoulder (Primary Dx); Right shoulder pain, unspecified chronicity 06/14/2025 10:57 AM CDT - 06/14/2025 11:59 PM CDT Hospital Encounter [facility] [address] [place] [address] Right shoulder pain, unspecified chronicity Discharge Disposition: Discharge to home or self care from Last 3 Months Surgical History Surgery Date Site/Laterality Comments FLUORO GUIDED ASPIRATION SHOULDER RIGHT 06/29/2025 R ight SHOULDER SURGERY Right x 6 KNEE SURGERY Right x 12 IR PICC LINE PLACEMENT > 5 YEARS 08/18/2025 N/A Medical History Medical History Date Comments Hypertension Family History Medical History Relation Name Comments Anesthesia problems Neg Hx Social History Tobacco Use Types Packs/Day Years Used Date Smoking Tobacco: Never Passive Smoke Exposure: Never Smokeless Tobacco: Never Tobacco Cessation:Counseling Given: Not Answered Alcohol Use Standard Drinks/Week Comments Never 0 [...] often do you attend chur ch or mosque services? Never 08/18/2025 Do you belong to any clubs o r organizations such as gnosticist groups, unions, fraternal or athletic groups, or [...] any time in the past 12 [facility], were you homeless or living in a senior care (including now)? 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 Gender Identity Not on file Sexual Orientation Not on file Last Filed Vital Signs Vital Sign Reading Time Taken Comments Blood Pressure 132/60 08/21/2025 12:00 PM CDT Pulse 75 08/21/2025 12:00 PM CDT Temperature 36.2 C (97.1 F) 08/21/2025 12:00 PM CDT Respiratory Rate 18 08/21/2025 12:00 PM CDT Oxygen Saturation 99% 08/21/2025 12:00 PM CDT Inhaled Oxygen Concentration - - Weight 96.6 kg (213 lb) 08/16/2025 10:41 AM CDT Height 182.9 cm (6' 0.01) 08/15/2025 6:45 PM CD T Body Mass Index 28.88 08/15/2025 6:45 PM CDT Plan of Treatment Health Maintenance Due Date Last Done Comments Colon Cancer Screening-Colonoscopy 1975 Hepatitis C Screening 1975 Hepatitis B Screening 1993 Regular Well Visit/Exam 18-64 1993 Pneumococcal vaccine <65 (2 of 2 - PCV) 12/05/2020 12/05/2019 Covid-19 Vaccine (2024-2 6 season) 2025 08/26/2021, 12/31/2020, 12/10/2020 Influenza Vaccine (#1) 2025 , 07/21/2023, 07/03/2023, Additional history exists Depression Screening 08/15/2026 08/15/2025 DTaP/Tdap/Td Vaccine (2 - Td or Tdap) 01/26/2029 01/26/2019 Medical Devices Implanted Type Area Gamma Operator Device Identifier Shelf Expiration Date Model / Serial / Lot [employer] Aequalis Perform Reversed 5mm 30mm Peripheral Glenoid Screw [id number] - [id number] Implanted:Qty: 1 on 07/18/2025 at [facility] Right: Shoulder [employer] [id number] / / [employer] Screw Glenoid Locking Reverse Aequalis Perform 5.0x26mm Titanium [id number] - [id number] Implanted:Qty: 2 on 07/18/2025 at [facility] Right: Shoulder [employer] [id number] / / [employer] Aequalis Perform Reversed Od6.5 Mm L40 Mm Central Glenoid Screw Baseplate Nonsterile [id number] - [id number] Implanted:Qty: 1 on 07/18/2025 at [facility] Right: Shoulder [email or web address] [id number] / / Allosopriyanka Freeze Dried Chips 1-10mm Graft 15ml Bone Cancellous [id number] - [id number] Implanted:Qty: 1 on 07/18/2025 at [facility] Right: Shoulder [employer]ource 01/22/2030 [id number] / / [id number] [employer] Od25 Mm Full Wedge Augment Shoulder 15 D Baseplate Glenoid [id number] - [id number] Implanted:Qty: 1 on 07/18/2025 at [facility] Right: Shoulder [employer] 03/31/2030 [id number] / [id number] / [employer] Aequalis Perform Reversed 5mm 34mm Peripheral Glenoid Screw [id number] - [id number] Implanted:Qty: 1 on 07/18/2025 at [facility] Right: Shoulder [employer] [id number] / / [employer] Glenosphere Cannulated Reverse Standard [place] Chromium Tornier Perform 42mm [id number] - [id number] Implanted:Qty: 1 on 08/16/2025 at [facility] Right: Shoulder [employer] 03/27/2030 [id number] / [id number] / [employer] Spacer Fracture Humeral Sz /2 Th9mm [id number] - [id number] Implanted:Qty: 1 on 08/16/2025 at [facility] Right: Shoulder [employer] 06/29/2029 [id number] / [id number] / [employer] Insert Perform 10 Deg Ret Ve [id number] - [id number] Implanted:Qty: 1 on 08/16/2025 at [facility] Right: Shoulder [employer] 05/01/2027 [id number] / [id number] / Explanted Type Area Gamma Operator Device Identifier Shelf Expiration Date Model / Serial / Lot Gelnosphear Explanted:Qty: 1 on 07/18/2025 by Karen Momin MD at [facility] Other - see comments Right: Shoulder [employer] NA / / 3/4 Poly Explanted:Qty: 1 on 07/18/2025 by Karen Momin MD at [facility] Right: Shoulder [employer] NA / / 25mm Full Wedge Baseplate Explanted:Qty: 1 on 07/18/2025 by Karen Momin MD at [facility] Right: Shoulder [employer] NA / / Screws Explanted:Qty: 1 on 07/18/2025 by Karen Momin MD at [facility] Right: Shoulder [employer] NA / / [employer] Glenosphere Cannulated Reverse Standard [place] Chromium Tornier Perform 42mm [id number] - [id number] Implanted:Qty: 1 on 07/18/2025 at [facility] Explanted:Qty: 1 on 08/16/2025 at [facility] Right: Shoulder [employer] 06/06/2030 [id number] / [id number] / [employer] Insert Perform 10 Deg Ret Ve [id number] - [id number] Implanted:Qty: 1 on 07/18/2025 at [facility] Explanted:Qty: 1 on 08/16/2025 at [facility] Right: Shoulder [employer] 08/22/2029 [id number] / [id number] / [employer] Spacer Fracture Humeral Sz 1/2 Th9mm [id number] - [id number] Implanted:Qty: 1 on 07/18/2025 at [facility] Explanted:Qty: 1 on 08/16/2025 at [facility] Right: Shoulder [employer] 09/05/2029 [id number] / [id number] / Procedures Procedure Name Priority Date/Time Associated Diagnosis Comments EGFR Routine 08/29/2025 11:10 AM CDT DIFFERENTIAL AUTO Routine 08/29/2025 11:10 AM CDT CBC WITH AUTO DIFFERENTIAL Routine 08/29/2025 11:10 AM CDT COMPREHENSIVE METABOLIC PANEL Routine 08/29/2025 11:10 AM CDT XR SHOULDER RIGHT 2 OR MORE VIEWS Schedule Routine, Read Routine (OP Routine) 08/28/2025 2:11 PM CDT Status post reverse arthroplasty of right shoulder HEMOGLOBIN AND HEMATOCRIT Routine 08/20/2025 3:25 AM CDT HEMOGLOBIN AND HEMATOCRIT Routine 08/19/2025 2:46 AM CDT IR PICC LINE PLACEMENT > 5 YEARS IP Routine 08/18/2025 3:26 PM CDT CREATINE KINASE (CK), TOTAL Timed 08/18/2025 11:53 AM CDT HEMOGLOBIN AND HEMATOCRIT Routine 08/18/2025 3:18 AM CDT EGFR Routine 08/17/2025 4:59 AM CDT HEMOGLOBIN AND HEMATOCRIT Routine 08/17/2025 4:59 AM CDT BASIC METABOLIC PANEL Routine 08/17/2025 4:59 AM CDT TISSUE AEROBIC AND ANAEROBIC CULTURE AND GRAM STAIN Routine 08/16/2025 4:21 PM CDT TISSUE AEROBIC AND ANAEROBIC CULTURE AND GRAM STAIN Routine 08/16/2025 4:21 PM CDT TISSUE AEROBIC AND ANAEROBIC CULTURE AND GRAM STAIN Routine 08/16/2025 4:21 PM CDT TISSUE AEROBIC AND ANAEROBIC CULTURE AND GRAM STAIN Routine 08/16/2025 4:00 PM CDT ID AN PROCEDURE PLACEHOLDER Routine 08/16/2025 3:30 PM CDT XR SHOULDER RIGHT 2 OR MORE VIEWS IP Routine 08/16/2025 2:58 PM CDT TISSUE AEROBIC AND ANAEROBIC CULTURE AND GRAM STAIN Routine 08/16/2025 1:53 PM CDT ID AN PROCEDURE PLACEHOLDER Routine 08/16/2025 12:21 PM CDT ID AN ELECTIVE ENDOTRACHEAL AIRWAY Routine 08/16/2025 12:21 PM CDT REVISION ARTHROPLASTY REVERSE TOTAL SHOULDER 08/16/2025 11:41 AM CDT Infection associated with prosthesis of right shoulder joint IRRIGATION AND DEBRIDEMENT - SHOULDER 08/16/2025 11:41 AM CDT Infection associated with prosthesis of right shoulder joint ID AN PROCEDURE PLACEHOLDER Routine 08/16/2025 11:36 AM CDT PAIN BLOCK Routine 08/16/2025 10:11 AM CDT TYPE AND SCREEN STAT 08/16/2025 6:35 AM CDT CRP (ACUTE PHASE) STAT 08/15/2025 8:58 PM CDT EGFR STAT 08/15/2025 8:58 PM CDT DIFFERENTIAL AUTO STAT 08/15/2025 8:58 PM CDT ERYTHROCYTE SEDIMENTATION RATE STAT 08/15/2025 8:58 PM CDT PROTIME-INR STAT 08/15/2025 8:58 PM CDT BASIC METABOLIC PANEL STAT 08/15/2025 8:58 PM CDT CBC WITH AUTO DIFFERENTIAL STAT 08/15/2025 8:58 PM CDT XR SHOULDER RIGHT 2 OR MORE VIEWS ED Urgent/IP Urgent 08/15/2025 7:39 PM CDT XR SHOULDER RIGHT 2 OR MORE VIEWS Schedule Routine, Read Routine (OP Routine) 07/31/2025 2:39 PM CDT Status post reverse arthroplasty of right shoulder EGFR Routine 07/19/2025 3:14 AM CDT HEMOGLOBIN AND HEMATOCRIT Routine 07/19/2025 3:14 AM CDT BASIC METABOLIC PANEL Routine 07/19/2025 3:14 AM CDT XR SHOULDER RIGHT 2 OR MORE VIEWS IP Routine 07/18/2025 5:50 PM CDT MYCOBACTERIOLOGY AFB CULTURE AND ACID-FAST STAIN Routine 07/18/2025 4:30 PM CDT MYCOLOGY (FUNGAL) CULTURE Routine 07/18/2025 4:30 PM CDT TISSUE AEROBIC AND ANAEROBIC CULTURE AND GRAM STAIN Routine 07/18/2025 4:30 PM CDT MYCOBACTERIOLOGY AFB CULTURE AND ACID-FAST STAIN Routine 07/18/2025 4:30 PM CDT MYCOLOGY (FUNGAL) CULTURE Routine 07/18/2025 4:30 PM CDT TISSUE AEROBIC AND ANAEROBIC CULTURE AND GRAM STAIN Routine 07/18/2025 4:30 PM CDT MYCOBACTERIOLOGY AFB CULTURE AND ACID-FAST STAIN Routine 07/18/2025 4:30 PM CDT MYCOLOGY (FUNGAL) CULTURE Routine 07/18/2025 4:30 PM CDT TISSUE AEROBIC AND ANAEROBIC CULTURE AND GRAM STAIN Routine 07/18/2025 4:30 PM CDT MYCOBACTERIOLOGY AFB CULTURE AND ACID-FAST STAIN Routine 07/18/2025 4:30 PM CDT MYCOLOGY (FUNGAL) CULTURE Routine 07/18/2025 4:30 PM CDT TISSUE AEROBIC AND ANAEROBIC CULTURE AND GRAM STAIN Routine 07/18/2025 4:30 PM CDT MYCOBACTERIOLOGY AFB CULTURE AND ACID-FAST STAIN Routine 07/18/2025 4:30 PM CDT MYCOLOGY (FUNGAL) CULTURE Routine 07/18/2025 4:30 PM CDT TISSUE AEROBIC AND ANAEROBIC CULTURE AND GRAM STAIN Routine 07/18/2025 4:30 PM CDT ID AN PROCEDURE PLACEHOLDER Routine 07/18/2025 2:12 PM CDT ID AN ELECTIVE ENDOTRACHEAL AIRWAY Routine 07/18/2025 2:12 PM CDT BONE GRAFT 07/18/2025 1:55 PM CDT Right shoulder pain, unspecified chronicity History of arthroplasty of right shoulder Case Notes Beach Chair with TrimanoBreg Sling Shot with PillowPolar Care Ice MachineStryker Perform baseplates/spheresStryker Perform polys/traysStryker Perform samuel headsBetadine and hydrogen [id number] irrigation Cultures q6Ewlick tip burrFlexible osteotomes Humeral head or femoral head allograftCancellous chips Cultures x5 Special Needs Beach Chair with TrimanoBreg Sling Shot with PillowPolar Care Ice MachineStryker Perform baseplates/spheresStryker Perform polys/traysStryker Perform samuel headsBetadine and hydrogen [id number] irrigation Cultures o3Sjbaaz tip burrFlex ible osteotomes Humeral head or femoral head allograftCancellous chips Cultures x5 REVISION ARTHROPLASTY REVERSE TOTAL SHOULDER 07/18/2025 1:55 PM CDT Right shoulder pain, unspecified chronicity History of arthroplasty of right shoulder Case Notes Beach Chair with TrimanoBreg Sling Shot with PillowPolar Care Ice MachineStryker Perform baseplates/spheresStryker Perform polys/traysStryker Perform samuel headsBetadine and hydrogen [id number] irrigation Cultures s9Iutbbm tip burrFlexible osteotomes Humeral head or femoral head allograftCancellous chips Cultures x5 Special Needs Beach Chair with TrimanoBreg Sling Shot with PillowPolar Care Ice MachineStryker Perform baseplates/spheresStryker Perform polys/traysStryker Perform samuel headsBetadine and hydrogen [id number] irrigation Cultures q1Toaqkh tip burrFlex ible osteotomes Humeral head or femoral head allograftCancellous chips Cultures x5 IRRIGATION AND DEBRIDEMENT - SHOULDER 07/18/2025 1:55 PM CDT Right shoulder pain, unspecified chronicity History of arthroplasty of right shoulder Case Notes Beach Chair with TrimanoBreg Sling Shot with PillowPolar Care Ice MachineStryker Perform baseplates/spheresStryker Perform polys/traysStryker Perform samuel headsBetadine and hydrogen [id number] irrigation Cultures n1Yujrrk tip burrFlexible osteotomes Humeral head or femoral head allograftCancellous chips Cultures x5 Special Needs Beach Chair with TrimanoBreg Sling Shot with PillowPolar Care Ice MachineStryker Perform baseplates/spheresStryker Perform polys/traysStryker Perform samuel headsBetadine and hydrogen [id number] irrigation Cultures d3Oyceyf tip burrFlex ible osteotomes Humeral head or femoral head allograftCancellous chips Cultures x5 ID AN PROCEDURE PLACEHOLDER Routine 07/18/2025 1:46 PM CDT ID AN PROCEDURE PLACEHOLDER Routine 07/18/2025 1:46 PM CDT BW IP ANE LDA PERIPHERAL NERVE CATHETER Routine 07/18/2025 1:46 PM CDT B CHECK SAMPLE STAT 07/18/2025 1:06 PM CDT TYPE AND SCREEN STAT 07/18/2025 1:06 PM CDT PAIN BLOCK Routine 07/18/2025 12:53 PM CDT EGFR Routine 07/12/2025 8:20 AM CDT Right shoulder pain, unspecified chronicity History of arthroplasty of right shoulder TYPE AND SCREEN Routine 07/12/2025 8:20 AM CDT Preoperative testing COMPREHENSIVE METABOLIC PANEL Routine 07/12/2025 8:20 AM CDT Right shoulder pain, unspecified chronicity History of arthroplasty of right shoulder VITAMIN D 25 HYDROXY Routine 07/12/2025 8:20 AM CDT Right shoulder pain, unspecified chronicity History of arthroplasty of right shoulder CBC WITHOUT DIFFERENTIAL Routine 07/12/2025 8:20 AM CDT Right shoulder pain, unspecified chronicity History of arthroplasty of right shoulder ERYTHROCYTE SEDIMENTATION RATE Routine 07/12/2025 8:20 AM CDT Right shoulder pain, unspecified chronicity History of arthroplasty of right shoulder CRP (ACUTE PHASE) Routine 07/12/2025 8:20 AM CDT Right shoulder pain, unspecified chronicity History of arthroplasty of right shoulder CELL DIFFERENTIAL, BODY FLUID Routine 06/29/2025 9:57 AM CDT Status post reverse arthroplasty of right shoulder CELL COUNT W/REFLEX DIFFERENTIAL, BODY FLUID Routine 06/29/2025 9:57 AM CDT Status post reverse arthroplasty of right shoulder AEROBIC AND ANAEROBIC CULTURE AND GRAM STAIN Routine 06/29/2025 9:57 AM CDT Status post reverse arthroplasty of right shoulder FLUORO GUIDED ASPIRATION SHOULDER RIGHT Schedule Routine, Read Routine (OP Routine) 06/29/2025 8:19 AM CDT Status post reverse arthroplasty of right shoulder Right shoulder pain, unspecified chronicity CT SHOULDER RIGHT WO CONTRAST Schedule Routine, Read Routine (OP Routine) 06/15/2025 7:03 AM CDT Right shoulder pain, unspecified chronicity XR SHOULDER RIGHT 2 OR MORE VIEWS Schedule Routine, Read Routine (OP Routine) 06/14/2025 11:01 AM CDT Right shoulder pain, unspecified chronicity from Last 3 Months Results * eGFR (08/29/2025 11:10 AM CDT) eGFR 82 >=60 mL/min/1. 73 m2 Comment: Interpretive Data Reference Interval Normal >/= 90 mL/min/1.73m2 Mildly decreased* 60 - 89 mL/min/1.73m2 Mildly to moderately decreased 45 - 59 mL/min/1.73m2 Moderately to severely decreased 30 - 44 mL/min/1.73m2 Severely decreased 15 - 29 mL/min/1.73m2 Kidney Failure < 15 mL/min/1.73m2 *Relative to young adult level Estimated glomerular filtration rate is determined by the 2020 CKD-EPI equation recommended by the National Kidney Foundation (A Unifying Approach to GFR Estimation: Recommendations of the NKF-ASK Task Force on Reassessing the Inclusion of Race in Diagnosing Kidney Disease, JASN 202). The CKD-EPI equation should not be used for patients with unstable renal function and has not been validated in children and those over 70. Current interpretive data was last reviewed 2021. Testing performed by: [facility], [address] [place] [address], [place]., [address] Blood 08/29/2025 11:1 0 AM CDT 08/29/2025 12:51 PM CDT us Papo Harden MD LAB BLOOD ORDERABLES Final Result [facility] [address] [facility] Department [place] [address] * Differential, auto (08/29/2025 11:10 AM CDT) Neutrophil abs 3.24 1.50 - 6.50 K/cumm Comment:Testing performed by : [address] [address] Imm gran abs 0.01 0.00 - 0.10 K/cumm [facility] Comment:Testing performed by : [address] [address] Lymphocyte abs 2.25 0.80 - 3.30 K/cumm [facility] Comment:Testing performed by : [address] [address] Monocyte abs 0.48 0.20 - 0.80 K/cumm [facility] Comment:Testing performed by : [address] [address] Eosinophil abs 0.17 0.00 - 0.50 K/cumm [facility] Comment:Testing performed by : [address] [address] Basophil abs 0.08 0.00 - 0.10 K/cumm [facility] Comment:Testing performed by : [address] [address] Neutrophil pct 52.0 % [facility] Comment: Interpretive Data Percent cell count reference ranges are not reported, since discordance with absolute values may lead to misinterpretation of CBC data. Current Interpretive Data was last revised on 2018. Testing performed by: [address] [address] Imm gran pct 0.2 % [facility] Comment: Interpretive Data Percent cell count reference ranges are not reported, since discordance with absolute values may lead to misinterpretation of CBC data. Current Interpretive Data was last revised on 2018. Testing performed by: [address] [address] Lymphocyte pct 36.1 % [facility] Comment: Interpretive Data Percent cell count reference ranges are not reported, since discordance with absolute values may lead to misinterpretation of CBC data. Current Interpretive Data was last revised on 2018. Testing performed by: [address] [address] Monocyte pct 7.7 % [facility] Comment: Interpretive Data Percent cell count reference ranges are not reported, since discordance with absolute values may lead to misinterpretation of CBC data. Current Interpretive Data was last revised on 2018. Testing performed by: [address] [address] Eosinophil pct 2.7 % [facility] Comment: Interpretive Data Percent cell count reference ranges are not reported, since discordance with absolute values may lead to misinterpretation of CBC data. Current Interpretive Data was last revised on 2018. Testing performed by: [address] [address] Basophil pct 1.3 % [facility] Comment: Interpretive Data Percent cell count reference ranges are not reported, since discordance with absolute values may lead to misinterpretation of CBC data. Current Interpretive Data was last revised on 2018. Testing performed by: [address] [address] Blood 08/29/2025 11:1 0 AM CDT 08/29/2025 12:50 PM CDT Papo Harden MD LAB BLOOD ORDERABLES Final Result [facility] [address] [facility] Department of Laboratories [place], [place] [id number] * (ABNORMAL) CBC with auto differential (08/29/2025 11:10 AM CDT) WBC 6.23 3.80 - 9.90 K/cumm Comment:Testing performed by : [address] [address] Hgb 11.7(L) 13.0 - 17.5 g/dL [facility] [place] Comment:Testing performed by : [address] [address] Hct 34.6(L) 38.9 - 50.3 % [facility] Comment:Testing performed by : [address] [address] Plt 331 150 - 400 K/cumm [facility] Comment:Testing performed by : [address] [address] MPV 9.4 9.1 - 12.3 fL [facility] Comment:Testing performed by : [address] [address] RBC 4.15(L) 4.30 - 5.80 M/cumm [facility] Comment:Testing performed by : [address], [address] MCV 83.4 81.3 - 96.4 fL [facility] Comment:Testing performed by : [address], [address] MCH 28.2 27.1 - 33.3 pg [facility] Comment:Testing performed by : [address], [address] MCHC 33.8 32.3 - 35.7 g/dL [facility] Comment:Testing performed by : [address], [address] RDW CV 12.6 11.1 - 14.9 % [facility] Comment:Testing performed by : [address], [address] RDW SD 38.0 35.7 - 48.1 fL [facility] Comment:Testing performed by : [address], [address] NRBC abs 0.00 0.00 - 0.01 K/cumm [facility] Comment:Testing performed by : [address], [address] Blood 08/29/2025 11:1 0 AM CDT 08/29/2025 12:50 PM CDT us Papo Harden MD LAB BLOOD ORDERABLES Final Result [facility] [address] [facility] Department [place] [address] * (ABNORMAL) Comprehensive metabolic panel (08/29/2025 11:10 AM CDT) Sodium 134(L) 135 - 145 mmol/L Comment:Testing performed by : [address] [address] Potassium, pl 4.1 3.3 - 4.9 mmol/L [facility] Comment:Testing performed by : [address], [place]., [address] Chloride 100 97 - 110 mmol/L [facility] Comment:Testing performed by : [address], [place]., [address] CO2 23 22 - 32 mmol/L [facility] Comment:Testing performed by : [address] [address] Anion gap 11 2 - 15 mmol/L [facility] Comment:Testing performed by : [address], [place]., [address] BUN 10 6 - 25 mg/dL [facility] Comment:Testing performed by : [address] [address] Creatinine 1.10 0.80 - 1.30 mg/dL [facility] Comment:Testing performed by : [address] [address] Glucose 77 70 - 199 mg/dL [facility] Comment: Interpretive Data Fasting glucose >/= 126 mg/dl is diagnostic for diabetes. Fasting is defined as no caloric intake for at least 8 hours. Fasting glucose between 100 mg/dl to 125 mg/dl is diagnostic of prediabetes. In a patient with classic symptoms of hyperglycemia or hyperglycemic crisis, a random glucose >/= 200 mg/dl is diagnostic for diabetes. In the absence of unequivocal hyperglycemia, results should be confirmed by repeat testing. The classification and Diagnosis of Diabetes Diabetes Care 2021; 46: S19-S40. Current interpretive data was last revised 2022. Testing performed by: [address] [address] Calcium 9.3 8.5 - 10.3 mg/dL [facility] Comment:Testing performed by : [address] [address] Bilirubin, total 0.2 0.1 - 1.2 mg/dL [facility] Comment:Testing performed by : [facility], [address] [place] [address]., [address] Protein, pl 6.7 6.5 - 8.5 g/dL [facility] Comment:Testing performed by : [address] [address] Albumin 4.3 3.5 - 5.0 g/dL [facility] Comment:Testing performed by : [address] [address] Alk phos 74 40 - 130 Units/L [facility] Comment:Testing performed by : [address] [address] ALT 26 7 - 55 Units/L [facility] Comment:Testing performed by : [address] [address] AST 25 10 - 50 Units/L [facility] Comment:Testing performed by : [address] [address] Blood 08/29/2025 11:1 0 AM CDT 08/29/2025 12:49 PM CDT us Papo Harden MD LAB BLOOD ORDERABLES Final Result [facility] Department [place] [address] * XR Shoulder Right 2 or More Views (08/28/2025 2:11 PM CDT) Anatomical Region Laterality Modality Upper Extremities, Shoulder Right Comp uted Radiography 08/28/2025 2:1 9 PM CDT Impressions 08/28/2025 2:19 PM CDT 1. 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 Electronically signed by: Peter Avendano MD Narrative 08/28/2025 2:19 PM CDT EXAMINATION: XR SHOULDER RIGHT 2 OR MORE VIEWS HISTORY: Shoulder pain. FINDINGS: Comparison to 08/16/2025. 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 No periprosthetic fracture or component migration. Deep soft tissue gas has improved. Unchanged wound VAC overlies the right shoulder. 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 Procedure Note Peter Avendano MD - 08/28/2025 EXAMINATION: XR SHOULDER RIGHT 2 OR MORE VIEWS HISTORY: Shoulder pain. FINDINGS: Comparison to 08/16/2025. 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 No periprosthetic fracture or component migration. Deep soft tissue gas has improved. Unchanged wound VAC overlies the right shoulder. 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 IMPRESSION: 1. 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 Electronically signed by: Peter Avendano MD Karen Momin MD IMG XR PROCEDURES Fin al Result * (ABNORMAL) Hemoglobin and hematocrit (08/20/2025 3:25 AM CDT) Hgb 10.6(L) 13.0 - 17.5 g/dL Hct 33.1(L) 38.9 - 50.3 % [facility] Blood 08/20/2025 3:25 AM CDT 08/20/2025 3:36 AM CDT Karen Momin MD LAB BLOOD ORDERABLES Final Result Performing Organization Address [facility] Co de Phone Number [facility] [address] [facility] [place] [address] * (ABNORMAL) Hemoglobin and hematocrit (08/19/2025 2:46 AM CDT) Hgb 10.1(L) 13.0 - 17.5 g/dL Hct 31.2(L) 38.9 - 50.3 % [facility] MONTGOMERY Blood 08/19/2025 2:46 AM CDT 08/19/2025 2:54 AM CDT Karen Momin MD LAB BLOOD ORDERABLES Final Result Performing Organization Address [facility] Co de Phone Number [facility] [address] [facility]. Department [place] [address] * IR PICC Line Placement Over 5 Years of Age (08/18/2025 3:26 PM CDT) Anatomical Region Laterality Modality Body N/A Ultrasound 08/18/2025 4:02 PM CDT Impressions 08/18/2025 4:02 PM CDT Technically successful image guided placement of 5-Uzbek double-lumen PICC via the left upper extremity. The catheter is ready for immediate use. Electronically signed by: Freddie Conklin M.D. Narrative 08/18/2025 4:02 PM CDT EXAMINATION: IMAGE GUIDED PERIPHERALLY INSERTED CENTRAL VENOUS CATHETER HISTORY/INDICATION: Right shoulder infection ATTENDING PRESENCE: Freddie Conklin MD the attending radiologist was present from the beginning to the end of the procedure SEDATION: Local anesthesia TECHNIQUE: The risks, benefits and alternatives were discussed and informed consent was obtained. Prior to beginning the procedure, Hinckley Protocol was performed to confirm the patient's identity and the planned procedure. For procedures that utilize fluoroscopy, the fluoroscopy time has been recorded in the electronic medical record. Maximum sterile barriers including cap, mask, hand hygiene, sterile gloves, sterile gown, large sterile drape and 2% chlorhexidine for cutaneous antisepsis were used. Using ultrasound guidance patency of the vein was confirmed and an image of the patent vessel was saved in the electronic medical record. Under direct ultrasound guidance left brachial vein was accessed with a micropuncture needle. Guidewire was advanced centrally. After serial dilation a 5-Uzbek dual lumen PICC was placed with the tip terminating at the cavoatrial junction. The catheter was capped and flushed with heparin. It was sutured in place using Prolene suture. A sterile dressing was applied. ESTIMATED BLOOD LOSS: Minimal CONDITION: Normal DISCHARGED TO: Inpatient unit FINDINGS: Final fluoroscopic spot image shows the catheter to be in appropriate position. No complications are identified. Procedure Note Freddie Conklin MD - 08/18/2025 EXAMINATION: IMAGE GUIDED PERIPHERALLY INSERTED CENTRAL VENOUS CATHETER HISTORY/INDICATION: Right shoulder infection ATTENDING PRESENCE: Freddie Conklin MD the attending radiologist was present from the beginning to the end of the procedure SEDATION: Local anesthesia TECHNIQUE: The risks, benefits and alternatives were discussed and informed consent was obtained. Prior to beginning the procedure, Hinckley Protocol was performed to confirm the patient's identity and the planned procedure. For procedures that utilize fluoroscopy, the fluoroscopy time has been recorded in the electronic medical record. Maximum sterile barriers including cap, mask, hand hygiene, sterile gloves, sterile gown, large sterile drape and 2% chlorhexidine for cutaneous antisepsis were used. Using ultrasound guidance patency of the vein was confirmed and an image of the patent vessel was saved in the electronic medical record. Under direct ultrasound guidance left brachial vein was accessed with a micropuncture needle. Guidewire was advanced centrally. After serial dilation a 5-Uzbek dual lumen PICC was placed with the tip terminating at the cavoatrial junction. The catheter was capped and flushed with heparin. It was sutured in place using Prolene suture. A sterile dressing was applied. ESTIMATED BLOOD LOSS: Minimal CONDITION: Normal DISCHARGED TO: Inpatient unit FINDINGS: Final fluoroscopic spot image shows the catheter to be in appropriate position. No complications are identified. IMPRESSION: Technically successful image guided placement of 5-Uzbek double-lumen PICC via the left upper extremity. The catheter is ready for immediate use. Electronically signed by: Freddie Conklin M.D. Deneen DAVIES IMG IR PROCEDURES Final R esult * (ABNORMAL) Creatine kinase (CK), total (08/18/2025 11:53 AM CDT) CK 315(H) 40 - 300 Units/L Blood 08/18/2025 11:5 3 AM CDT 08/18/2025 11:55 AM CDT us Fidelia Romero NP LAB BLOOD ORDERABLES Vivian fish Result [facility] [address] [facility]. Department [place] [address] * (ABNORMAL) Hemoglobin and hematocrit (08/18/2025 3:18 AM CDT) Hgb 9.6(L) 13.0 - 17.5 g/dL Hct 29.2(L) 38.9 - 50.3 % [facility] PAIGEJOSELIN Blood 08/18/2025 3:18 AM CDT 08/18/2025 3:23 AM CDT us Karen Momin MD LAB BLOOD ORDERABLES Final Result Performing Organization Address City/[facility] Co de Phone Number [facility] BRIGGS[facility] [address] [employer] [address], [place] [id number] * eGFR (08/17/2025 4:59 AM CDT) Pathologist [facility] eGFR 82 >=60 mL/min/1. 73 m2 Comment: Interpretive Data Reference Interval Normal >/= 90 mL/min/1.73m2 Mildly decreased* 60 - 89 mL/min/1.73m2 Mildly to moderately decreased 45 - 59 mL/min/1.73m2 Moderately to severely decreased 30 - 44 mL/min/1.73m2 Severely decreased 15 - 29 mL/min/1.73m2 Kidney Failure < 15 mL/min/1.73m2 *Relative to young adult level Estimated glomerular filtration rate is determined by the 2020 CKD-EPI equation recommended by the National Kidney Foundation (A Unifying Approach to GFR Estimation: Recommendations of the NKF-ASK Task Force on Reassessing the Inclusion of Race in Diagnosing Kidney Disease, JASN 2020). The CKD-EPI equation should not be used for patients with unstable renal function and has not been validated in children and those over 70. Current interpretive data was last reviewed 2021. Blood 08/17/2025 4:59 AM CDT 08/17/2025 5:04 AM CDT us Karen Momin MD LAB BLOOD ORDERABLES Final Result Performing Organization Address City/[facility]/ZIP Co de Phone Number [facility] [address] [employer] [place] [address] * (ABNORMAL) Hemoglobin and hematocrit (08/17/2025 4:59 AM CDT) Hgb 10.2(L) 13.0 - 17.5 g/dL Hct 30.9(L) 38.9 - 50.3 % [facility] Blood 08/17/2025 4:59 AM CDT 08/17/2025 5:04 AM CDT us Karen Momin MD LAB BLOOD ORDERABLES Final Result KEERTHI PAIGE [id number] [facility]. Department [place] [address] * Basic metabolic panel (08/17/2025 4:59 AM CDT) Pathologist [facility] Sodium 137 135 - 145 mmol/L Potassium, pl 3.8 3.3 - 4.9 mmol/L [facility] Chloride 104 97 - 110 mmol/L [facility] CO2 23 22 - 32 mmol/L [facility] Anion gap 10 2 - 15 mmol/L [facility] BUN 9 6 - 25 mg/dL [facility] Creatinine 1.10 0.80 - 1.30 mg/dL [facility] Glucose 141 70 - 199 mg/dL [facility] Comment: Interpretive Data Fasting glucose >/= 126 mg/dl is diagnostic for diabetes. Fasting is defined as no caloric intake for at least 8 hours. Fasting glucose between 100 mg/dl to 125 mg/dl is diagnostic of prediabetes. In a patient with classic symptoms of hyperglycemia or hyperglycemic crisis, a random glucose >/= 200 mg/dl is diagnostic for diabetes. In the absence of unequivocal hyperglycemia, results should be confirmed by repeat testing. The classification and Diagnosis of Diabetes Diabetes Care 2021; 46: S19-S40. Current interpretive data was last revised 2022. Calcium 8.6 8.5 - 10.3 mg/dL [facility] Blood 08/17/2025 4:59 AM CDT 08/17/2025 5:04 AM CDT us Karen Momin MD LAB BLOOD ORDERABLES Final Result Performing Organization Address [facility] Co de Phone Number KEERTHI BJWCH [address] [facility]. [facility] [place] [address] * (ABNORMAL) Tissue aerobic and anaerobic culture and gram stain Tissue Shoulder, right (08/16/2025 4:21 PM CDT) Direct Specimen Exam Stain: No polymorphonuclear leukocytes seen. No organisms seen. Comment:Testing performed by : [facility], [address] [place] [address]., [id number] Report Final Report: Very light growth Propionibacterium (Cutibacterium) acnes Physician requested susceptibility Susceptibility testing performed by [facility], [address] [place] [address]. Susceptibility results are available electronically in [facility] on the attachment of the culture order. (.) KEERTHI MONTGOMERY Comment:Testing performed by : [facility], [address] [place] [address]., [id number] Organism PROPIONIBACTERIUM (CUTIBACTERIUM) ACNES KEERTHI MONTGOMERY Tissue (Shoulder, right) 08/16/2025 4:21 PM CDT 08/16/2025 4:24 PM CDT Karen Momin MD LAB MICROBIOLOGY - GE NERAL ORDERABLES Final Result Performing Organization Address [facility] Co de Phone Number KEERTHI BRIGGSWCH [address] [place] [facility]. [place] [place] [address] * Tissue aerobic and anaerobic culture and gram stain Tissue Shoulder, right (08/16/2025 4:21 PM CDT) Direct Specimen Exam Stain: No polymorphonuclear leukocytes seen. No organisms seen. Comment:Testing performed by : [facility], [address] [place] [address]., [id number] Report Final Report: No growth KEERTHI MONTGOMERY Comment:Testing performed by : [facility], [address] [place] [address]., [id number] Tissue (Shoulder, right) 08/16/2025 4:21 PM CDT 08/16/2025 4:23 PM CDT Karen Momin MD LAB MICROBIOLOGY - GE NERAL ORDERABLES Final Result Performing Organization Address [facility] de Phone Number KEERTHI BRIGGSWCH [address] [facility]. [facility] [place] [place] [address] * (ABNORMAL) Tissue aerobic and anaerobic culture and gram stain Tissue Shoulder, right (08/16/2025 4:21 PM CDT) Direct Specimen Exam Stain: Few polymorphonuclear leukocytes seen. No organisms seen. Comment:Testing performed by : [facility], [address] [place] [address]., [id number] Report Final Report: Very light growth Propionibacterium (Cutibacterium) acnes Susceptibility not performed on this isolate (.) KEERTHI MONTGOMERY Comment:Testing performed by : [facility], [address] [place] [address]., [id number] Organism PROPIONIBACTERIUM (CUTIBACTERIUM) ACNES KEERTHI MONTGOMERY Tissue (Shoulder, right) 08/16/2025 4:21 PM CDT 08/16/2025 4:22 PM CDT Karen Momin MD LAB MICROBIOLOGY - GE NERAL ORDERABLES Final Result Performing Organization Address [facility] de Phone Number ANIRUDHOSCAR BJWCH [address] [employer]. [facility] [place] [address] * Tissue aerobic and anaerobic culture and gram stain Tissue Shoulder, right (08/16/2025 4:00 PM CDT) Direct Specimen Exam Stain: No polymorphonuclear leukocytes seen. No organisms seen. Comment:Testing performed by : [facility], [address] [place] [address]., [id number] Report Final Report: No growth KEERTHI MONTGOMERY Comment:Testing performed by : [facility], [facility], [place]., [address] Tissue (Shoulder, right) 08/16/2025 4:00 PM CDT 08/16/2025 4:28 PM CDT Karen Momin MD LAB MICROBIOLOGY - GE NERAL ORDERABLES Final Result Performing Organization Address City/State/[facility] Co mt Phone Number KEERTHI [facility] [address] [facility]. [place] [address] * ID AN PROCEDURE PLACEHOLDER (08/16/2025 3:30 PM CDT) Narrative Nita García DO - 08/16/2025 3:30 PM CDT Nita García DO 08/16/2025 3:31 PM Peripheral Block Patient location during procedure: pre-op holding Reason for block: post-op pain management per surgeon request Ultrasound image in chart or stored: yes Block type: single shot Laterality: right Block type: PECS II Staff: Placed by: Anesthesiologist: Nita García DO Procedure prep: Preprocedure checklist: patient identified, procedure contraindications assessed, site marked, procedure consent, surgical consent, IV checked, risks, benefits and alternatives discussed, monitors and equipment checked and timeout performed Patient position: sitting and head of bed elevated Procedure performed while patient: sedate with meaningful contact Monitoring: oximetry and ECG Supplemental O2: nasal cannula Prep solution: chlorhexidine/alcohol PPE: provider hat/mask, sterile probe cover and gel and sterile gloves Skin infiltrated with lidocaine 1%: yes Peripheral nerve block: Technique: ultrasound guided Needle type: short-bevel and echogenic Needle gauge: 21 G Needle length: 80 mm Injection assessment: injection made incrementally with constant monitoring, negative aspiration for heme, no paresthesias noted, normal resistance to injection and see flowsheet for medication details Assessment: Block success: full evaluation pending Events: patient tolerated procedure well with no complications Nita García DO ANESTHESIA ORDERABLES Final Res ult * XR Shoulder Right 2+ View (08/16/2025 2:58 PM CDT) Anatomical Region Laterality Modality Upper Extremities, Shoulder Right Comp uted Radiography 08/16/2025 3:05 PM CDT Impressions 08/16/2025 3:05 PM CDT 1. Postoperative changes from irrigation and debridement of the right shoulder with unchanged alignment of a revision reverse right total shoulder arthroplasty. Electronically signed by: Babar Brock MD Narrative 08/16/2025 3:05 PM CDT EXAMINATION: XR SHOULDER RIGHT 2 OR MORE VIEWS HISTORY: Right shoulder pain COMPARISON: 08/15/2025 FINDINGS: Two view examination of the right shoulder is performed. 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 There is postoperative soft tissue gas and swelling. No fracture is present. Postoperative changes from distal clavicular resection with heterotopic ossification about the acromioclavicular joint Procedure Note Babar Brock MD - 08/16/2025 EXAMINATION: XR SHOULDER RIGHT 2 OR MORE VIEWS HISTORY: Right shoulder pain COMPARISON: 08/15/2025 FINDINGS: Two view examination of the right shoulder is performed. 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 There is postoperative soft tissue gas and swelling. No fracture is present. Postoperative changes from distal clavicular resection with heterotopic ossification about the acromioclavicular joint IMPRESSION: 1. Postoperative changes from irrigation and debridement of the right shoulder with unchanged alignment of a revision reverse right total shoulder arthroplasty. Electronically signed by: Babar Brock MD Karen Momin MD IMG XR PROCEDURES Fin al Result * (ABNORMAL) Tissue aerobic and anaerobic culture and gram stain Tissue Shoulder, right (08/16/2025 1:53 PM CDT) Direct Specimen Exam Stain: No polymorphonuclear leukocytes seen. No organisms seen. Comment:Testing performed by : [facility], [address] [place] [address], [place]., [address] Report Final Report: Very light growth Propionibacterium (Cutibacterium) acnes Susceptibility not performed on this isolate (.) KEERTHI PAIGE Comment:Testing performed by : [facility], [facility], [place]., [address] Organism PROPIONIBACTERIUM (CUTIBACTERIUM) ACNES KEERTHI [facility] Tissue (Shoulder, right) 08/16/2025 1:53 PM CDT 08/16/2025 4:16 PM CDT Rei PAIGECH - 08/22/2025 10:47 AM CDT Right Shouldler culture #1, #2, #3, #4, and #5 Karen Momin MD LAB MICROBIOLOGY - [facility] ORDERABLES Final Result [facility] [address] [facility]. Department [place] [address] * ID AN ELECTIVE ENDOTRACHEAL AIRWAY, ID AN PROCEDURE PLACEHOLDER (08/16/2025 12:21 PM CDT) Mayra Myrick CRNA - 08/16/2025 12:21 PM CDT Mayra Parra CRNA 08/16/2025 12:22 PM Airway Patient location: OR Urgency: elective Date/time: 08/16/2025 11:49 AM Indications for airway management: anesthesia Difficult airway: no Staff: Placed by: CORNER TRIMMER OPERATOR: Mayra Parra, STANLEY Emergent airway documentation: Risks and benefits discussed: yes Consent obtained: yes Consent given by: patient Airway prep: Preoxygenated: yes Patient position: sniffing Mask difficulty assessment: 1 - vent by mask Spontaneous ventilation during airway: absent Sedation level during airway: GA Final airway details: Final airway type: endotracheal airway Tube type: ETT ETT size: 7.5 mm Cuffed: yes Technique used for successful ETT placement: video laryngoscopy Devices/Methods used in placement: cricoid pressure and stylet Insertion site: oral Blade type: Silva Video blade type: Lowery Blade size: 4 Cormack-Lehane (video): grade I - full view of glottis Cuff volume: 6 mL Cuff inflated with: air ETT to lips: 22 cm Placement verified by: auscultation Airway secured with: transpore tape Number of attempts: 1 Additional comments: Atraumatic x 1. +BBS/+ETCO2. Mouth and dentition unchanged. Nita García DO ANESTHESIA ORDERABLES Final Res ult * ID AN PROCEDURE PLACEHOLDER (08/16/2025 11:36 AM CDT) Narrative Nita García DO - 08/16/2025 11:36 AM CDT Nita García DO 08/16/2025 11:37 AM Peripheral Block Patient location during procedure: pre-op holding Reason for block: post-op pain management per surgeon request Ultrasound image in chart or stored: yes Block type: single shot Laterality: right Block type: brachial plexus - interscalene Staff: Placed by: Anesthesiologist: Nita García DO Procedure prep: Preprocedure checklist: patient identified, procedure contraindications assessed, site marked, procedure consent, surgical consent, IV checked, risks, benefits and alternatives discussed, monitors and equipment checked and timeout performed Patient position: sitting and head of bed elevated Procedure performed while patient: sedate with meaningful contact Monitoring: oximetry and ECG Supplemental O2: nasal cannula Prep solution: chlorhexidine/alcohol PPE: provider hat/mask, sterile gloves and sterile probe cover and gel Skin infiltrated with lidocaine 1%: yes Peripheral nerve block: Technique: ultrasound guided Needle type: short-bevel and echogenic Needle gauge: 21 G Needle length: 80 mm Injection assessment: injection made incrementally with constant monitoring, local visualized surrounding nerve on ultrasound, negative aspiration for heme, no paresthesias noted, normal resistance to injection and see flowsheet for medication details Assessment: Block success: full evaluation pending Events: patient tolerated procedure well with no complications us Nita García ANESTHESIA ORDERABLES Final Res ult * Type and screen (08/16/2025 6:35 AM CDT) Fernando, indirect Negative KEERTHI MONTGOMERY ABO Rh B Positive KEERTHI MONTGOMERY Blood 08/16/2025 6:35 AM CDT 08/16/2025 6:44 AM CDT Narrative KEERTHI MONTGOMERY - 08/16/2025 8:14 AM CDT Has the patient had Daratumumab or Isatuximab in the past 6 months?->Unknown us Renetta Arriaza SPACER TYPE BAR AND SEGMENT LAB BLOOD BANK TEST ORDERAB LES Final Result KEERTHI MONTGOMERY [id number] [employer]. [place] [address] * eGFR (08/15/2025 8:58 PM CDT) eGFR 74 >=60 mL/min/1. 73 m2 Comment: Interpretive Data Reference Interval Normal >/= 90 mL/min/1.73m2 Mildly decreased* 60 - 89 mL/min/1.73m2 Mildly to moderately decreased 45 - 59 mL/min/1.73m2 Moderately to severely decreased 30 - 44 mL/min/1.73m2 Severely decreased 15 - 29 mL/min/1.73m2 Kidney Failure < 15 mL/min/1.73m2 *Relative to young adult level Estimated glomerular filtration rate is determined by the 2020 CKD-EPI equation recommended by the National Kidney Foundation (A Unifying Approach to GFR Estimation: Recommendations of the NKF-ASK Task Force on Reassessing the Inclusion of Race in Diagnosing Kidney Disease, JASN 2020). The CKD-EPI equation should not be used for patients with unstable renal function and has not been validated in children and those over 70. Current interpretive data was last reviewed 2021. Blood 08/15/2025 8:58 PM CDT 08/15/2025 9:02 PM CDT us Paul Nunez MD LAB BLOOD ORDERABLE S Final Result KEERTHI PAGIECH [address] [employer]. [place] [address] * Differential, auto (08/15/2025 8:58 PM CDT) Neutrophil abs 3.70 1.50 - 6.50 K/cumm Imm gran abs 0.02 0.00 - 0.10 K/cumm [facility]ER [facility] Lymphocyte abs 2.67 0.80 - 3.30 K/cumm [facility] Monocyte abs 0.37 0.20 - 0.80 K/cumm [facility] Eosinophil abs 0.34 0.00 - 0.50 K/cumm [facility] Basophil abs 0.09 0.00 - 0.10 K/cumm KEERTHI BRIGGSJOSELIN Neutrophil pct 51.5 % KEERTHI MONTGOMERY Comment: Interpretive Data Percent cell count reference ranges are not reported, since discordance with absolute values may lead to misinterpretation of CBC data. Current Interpretive Data was last revised on 2018. Imm gran pct 0.3 % KEERTHI PAIGE Comment: Interpretive Data Percent cell count reference ranges are not reported, since discordance with absolute values may lead to misinterpretation of CBC data. Current Interpretive Data was last revised on 2018. Lymphocyte pct 37.1 % KEERTHI MONTGOMERY Comment: Interpretive Data Percent cell count reference ranges are not reported, since discordance with absolute values may lead to misinterpretation of CBC data. Current Interpretive Data was last revised on 2018. Monocyte pct 5.1 % KEERTHI MONTGOMERY Comment: Interpretive Data Percent cell count reference ranges are not reported, since discordance with absolute values may lead to misinterpretation of CBC data. Current Interpretive Data was last revised on 2018. Eosinophil pct 4.7 % KEERTHI PAIGE Comment: Interpretive Data Percent cell count reference ranges are not reported, since discordance with absolute values may lead to misinterpretation of CBC data. Current Interpretive Data was last revised on 2018. Basophil pct 1.3 % [facility] Comment: Interpretive Data Percent cell count reference ranges are not reported, since discordance with absolute values may lead to misinterpretation of CBC data. Current Interpretive Data was last revised on 2018. Blood 08/15/2025 8:58 PM CDT 08/15/2025 9:02 PM CDT us Paul Nunez MD LAB BLOOD ORDERABLE S Final Result [facility] [address] [facility]. Department of Laboratories [address], [place] [id number] * (ABNORMAL) CBC with auto differential (08/15/2025 8:58 PM CDT) WBC 7.19 3.80 - 9.90 K/cumm Hgb 12.7(L) 13.0 - 17.5 g/dL [facility] Hct 37.5(L) 38.9 - 50.3 % [facility] Plt 316 150 - 400 K/cumm [facility] MPV 8.8(L) 9.1 - 12.3 fL [facility] RBC 4.38 4.30 - 5.80 M/cumm [facility] MCV 85.6 81.3 - 96.4 fL [facility] MCH 29.0 27.1 - 33.3 pg [facility] MCHC 33.9 32.3 - 35.7 g/dL [facility] RDW CV 12.2 11.1 - 14.9 % [facility] RDW SD 38.2 35.7 - 48.1 fL [facility] NRBC abs 0.00 0.00 - 0.01 K/cumm [facility] Blood 08/15/2025 8:58 PM CDT 08/15/2025 9:02 PM CDT Paul Nunez MD LAB BLOOD ORDERABLE S Final Result Performing Organization Address [facility] de Phone Number [facility] [address] [place] [place] [address] * Erythrocyte sedimentation rate (08/15/2025 8:58 PM CDT) [facility] Erythrocyte sedimentation rate 15 1 - 15 mm/hr Blood 08/15/2025 8:58 PM CDT 08/15/2025 9:02 PM CDT Paul Nunez MD LAB BLOOD ORDERABLE S Final Result Performing Organization Address City/[facility] Co de Phone Number [facility] [address] [facility] [place] [address] * Protime-INR (08/15/2025 8:58 PM CDT) [facility] PT 11.7 10.2 - 13.5 sec INR 1.04 0.90 - 1.20 [facility] Comment: Interpretive data Oral anticoagulant therapeutic ranges: Venous thromboembolism prophylaxis or treatment: 2.0-3.0 CARDIOLOGY Standard range: 2.0-3.0 High-intensity range: 2.5-3.5 Refer to indication-specific guidelines for appropriate target ranges for prosthetic heart valve replacement. Current interpretive data was last revised on 2019. Blood 08/15/2025 8:58 PM CDT 08/15/2025 9:02 PM CDT Paul Nunez MD LAB BLOOD ORDERABLE S Final Result Performing Organization Address [facility] Co de Phone Number [facility] [address] [facility] [place] [address] * CRP (acute phase) (08/15/2025 8:58 PM CDT) [facility] CRP <3.0 <=10.0 mg/L Blood 08/15/2025 8:58 PM CDT 08/15/2025 9:02 PM CDT us Karen Momin MD LAB BLOOD ORDERABLES Final Result Performing Organization Address [facility] de Phone Number [facility] [address] [facility] [place] [address] * Basic metabolic panel (08/15/2025 8:58 PM CDT) [facility] Sodium 137 135 - 145 mmol/L Potassium, pl 3.6 3.3 - 4.9 mmol/L [facility] Chloride 101 97 - 110 mmol/L [facility] CO2 25 22 - 32 mmol/L [facility] Anion gap 11 2 - 15 mmol/L [facility] BUN 12 6 - 25 mg/dL [facility] Creatinine 1.20 0.80 - 1.30 mg/dL [facility] Glucose 123 70 - 199 mg/dL [facility] Comment: Interpretive Data Fasting glucose >/= 126 mg/dl is diagnostic for diabetes. Fasting is defined as no caloric intake for at least 8 hours. Fasting glucose between 100 mg/dl to 125 mg/dl is diagnostic of prediabetes. In a patient with classic symptoms of hyperglycemia or hyperglycemic crisis, a random glucose >/= 200 mg/dl is diagnostic for diabetes. In the absence of unequivocal hyperglycemia, results should be confirmed by repeat testing. The classification and Diagnosis of Diabetes Diabetes Care 202; 46: S19-S40. Current interpretive data was last revised 2022. Calcium 9.3 8.5 - 10.3 mg/dL KEERTHI MONTGOMERY Blood 08/15/2025 8:58 PM CDT 08/15/2025 9:02 PM CDT us Paul Nunez MD LAB BLOOD ORDERABLE S Final Result Performing Organization Address City/State/[facility] Co de Phone Number [facility] [address] [facility]. [place] [address] * XR Shoulder Right 2+ View (08/15/2025 7:39 PM CDT) Anatomical Region Laterality Modality Upper Extremities, Shoulder Right Comp uted Radiography 08/16/2025 7:17 AM CDT Impressions 08/16/2025 7:17 AM CDT 1. 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 FINDINGS: Comparison to 07/31/2025. 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 No periprosthetic fracture or component migration. Distal clavicular resection with heterotopic ossification about the acromioclavicular joint. Deep soft tissue gas has resolved. Procedure Note Peter Avendano MD - 08/16/2025 EXAMINATION: XR SHOULDER RIGHT 2 OR MORE VIEWS HISTORY: Shoulder pain. FINDINGS: Comparison to 07/31/2025. 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 No periprosthetic fracture or component migration. Distal clavicular resection with heterotopic ossification about the acromioclavicular joint. Deep soft tissue gas has resolved. IMPRESSION: 1. 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 Reverse right total shoulder arthroplasty with revised glenoid component in unchanged, expected position. Electronically signed by: Marco Yu M.D. Narrative 07/31/2025 2:43 PM CDT EXAMINATION: XR SHOULDER RIGHT 2 OR MORE VIEWS HISTORY: Right proximal humerus fracture and painful reverse total shoulder arthroplasty, status post revision on 07/18/2025 FINDINGS: 2 view examination of the right shoulder is compared with studies from 07/18/2025, 06/15/2025, and 06/14/2025. There is a reverse total shoulder arthroplasty with revised glenoid component in unchanged, expected position. There is no change in a small amount of heterotopic ossification in the axillary soft tissues. There is unchanged acromioplasty and distal clavicle excision. Procedure Note Marco Yu MD - 07/31/2025 EXAMINATION: XR SHOULDER RIGHT 2 OR MORE VIEWS HISTORY: Right proximal humerus fracture and painful reverse total shoulder arthroplasty, status post revision on 07/18/2025 FINDINGS: 2 view examination of the right shoulder is compared with studies from 07/18/2025, 06/15/2025, and 06/14/2025. There is a reverse total shoulder arthroplasty with revised glenoid component in unchanged, expected position. There is no change in a small amount of heterotopic ossification in the axillary soft tissues. There is unchanged acromioplasty and distal clavicle excision. IMPRESSION: 1. Reverse right total shoulder arthroplasty with revised glenoid component in unchanged, expected position. Electronically signed by: Marco Yu M.D. us Karen Momin MD IMG XR PROCEDURES Fin al Result * eGFR (07/19/2025 3:14 AM CDT) eGFR 84 >=60 mL/min/1. 73 m2 Comment: Interpretive Data Reference Interval Normal >/= 90 mL/min/1.73m2 Mildly decreased* 60 - 89 mL/min/1.73m2 Mildly to moderately decreased 45 - 59 mL/min/1.73m2 Moderately to severely decreased 30 - 44 mL/min/1.73m2 Severely decreased 15 - 29 mL/min/1.73m2 Kidney Failure < 15 mL/min/1.73m2 *Relative to young adult level Estimated glomerular filtration rate is determined by the 2020 CKD-EPI equation recommended by the National Kidney Foundation (A Unifying Approach to GFR Estimation: Recommendations of the NKF-ASK Task Force on Reassessing the Inclusion of Race in Diagnosing Kidney Disease, JASN 2020). The CKD-EPI equation should not be used for patients with unstable renal function and has not been validated in children and those over 70. Current interpretive data was last reviewed 2021. Blood 07/19/2025 3:14 AM CDT 07/19/2025 3:16 AM CDT us Angy Laguerre MD LAB BLOOD ORDERABLES Final Result [facility] [address] [facility]. [place] [address] * (ABNORMAL) Hemoglobin and hematocrit (07/19/2025 3:14 AM CDT) Hgb 11.2(L) 13.0 - 17.5 g/dL Hct 33.9(L) 38.9 - 50.3 % KEERTHI MONTGOMERY Blood 07/19/2025 3:14 AM CDT 07/19/2025 3:16 AM CDT us Angy Laguerre MD LAB BLOOD ORDERABLES Final Result KEERTHI MONTGOMERY [id number] [facility]. [place] [place] [address] * (ABNORMAL) Basic metabolic panel (07/19/2025 3:14 AM CDT) Sodium 134(L) 135 - 145 mmol/L Potassium, pl 4.4 3.3 - 4.9 mmol/L [facility] Chloride 103 97 - 110 mmol/L [facility] CO2 21(L) 22 - 32 mmol/L [facility] Anion gap 10 2 - 15 mmol/L [facility] BUN 10 6 - 25 mg/dL [facility] Creatinine 1.08 0.80 - 1.30 mg/dL [facility] Glucose 145 70 - 199 mg/dL [facility] Comment: Interpretive Data Fasting glucose >/= 126 mg/dl is diagnostic for diabetes. Fasting is defined as no caloric intake for at least 8 hours. Fasting glucose between 100 mg/dl to 125 mg/dl is diagnostic of prediabetes. In a patient with classic symptoms of hyperglycemia or hyperglycemic crisis, a random glucose >/= 200 mg/dl is diagnostic for diabetes. In the absence of unequivocal hyperglycemia, results should be confirmed by repeat testing. The classification and Diagnosis of Diabetes Diabetes Care 2021; 46: S19-S40. Current interpretive data was last revised 2022. Calcium 8.3(L) 8.5 - 10.3 mg/dL [facility] Blood 07/19/2025 3:1 4 AM CDT 07/19/2025 3:16 AM CDT us Angy Laguerre MD LAB BLOOD ORDERABLES Final Result Performing Organization Address [facility]/ZIP Co de Phone Number KEERTHI PAIGECH [address] [facility] [place] [address] * XR Shoulder Right 2+ View (07/18/2025 5:50 PM CDT) Anatomical Region Laterality Modality Upper Extremities, Shoulder Right Comp uted Radiography 07/19/2025 7:09 AM CDT Impressions 07/19/2025 7:09 AM CDT Revision reverse total right glenohumeral arthroplasty in expected position. Electronically signed by: Claudio Gonsalves M.D. Narrative 07/19/2025 7:09 AM CDT XR SHOULDER RIGHT 2 OR MORE VIEWS HISTORY: Shoulder arthroplasty. FINDINGS: 2 views of the right shoulder are obtained and compared with 06/14/2025. There is interval revision reverse total right glenohumeral arthroplasty. Orthopedic components are in expected position. There is no periprosthetic fracture or osteolysis. Alignment is normal. There is overlying soft tissue gas. Unchanged prior distal clavicular resection. Procedure Note Claudio Gonsalves MD - 07/19/2025 XR SHOULDER RIGHT 2 OR MORE VIEWS HISTORY: Shoulder arthroplasty. FINDINGS: 2 views of the right shoulder are obtained and compared with 06/14/2025. There is interval revision reverse total right glenohumeral arthroplasty. Orthopedic components are in expected position. There is no periprosthetic fracture or osteolysis. Alignment is normal. There is overlying soft tissue gas. Unchanged prior distal clavicular resection. IMPRESSION: Revision reverse total right glenohumeral arthroplasty in expected position. Electronically signed by: Claudio Gonsalves M.D. Angy Laguerre MD IMG XR PROCEDURES Final Res ult * Tissue aerobic and anaerobic culture and gram stain Tissue Shoulder, right (07/18/2025 4:30 PM CDT) Direct Specimen Exam Stain: No organisms seen. No polymorphonuclear leukocytes seen. Comment:Testing performed by : [facility], [address] [place] [address], [place]., [id number] Report Final Report: No growth KEERTHI MONTGOMERY Comment:Testing performed by : [facility], [address] [place] [address], [place]., [id number] Tissue (Shoulder, right) 07/18/2025 4:30 PM CDT 07/18/2025 6:05 PM CDT Narrative KEERTHI BRIGGSWCH - 07/28/2025 9:02 AM CDT Right Shoulder #5 Karen Momin MD LAB MICROBIOLOGY - GE NERAL ORDERABLES Final Result Performing Organization Address [facility] de Phone Number KEERTHI BRIGGSWCH [address] [facility]. [place] [place] [address] [address] * Tissue aerobic and anaerobic culture and gram stain Tissue Shoulder, right (07/18/2025 4:30 PM CDT) Direct Specimen Exam Stain: No organisms seen. No polymorphonuclear leukocytes seen. Comment:Testing performed by : [facility], [address] [place] [address]., [id number] Report Final Report: No growth KEERTHI MONTGOMERY Comment:Testing performed by : [facility], [address] [place] [address]., [id number] Tissue (Shoulder, right) 07/18/2025 4:30 PM CDT 07/18/2025 6:02 PM CDT Narrative KEERTHI MONTGOMERY - 07/28/2025 9:03 AM CDT Right Shoulder #4 Karen Momin MD LAB MICROBIOLOGY - GE NERAL ORDERABLES Final Result Performing Organization Address [facility] de Phone Number KEERTHI BRIGGSWCH [address] [facility]. [facility] [place] [address] * Tissue aerobic and anaerobic culture and gram stain Tissue Shoulder, right (07/18/2025 4:30 PM CDT) Direct Specimen Exam Stain: No organisms seen. No polymorphonuclear leukocytes seen. Comment:Testing performed by : [facility], [address] [place] [address]., [id number] Report Final Report: No growth KEERTHI MONTGOMERY Comment:Testing performed by : [facility], [address] [place] [address]., [id number] Tissue (Shoulder, right) 07/18/2025 4:30 PM CDT 07/18/2025 6:04 PM CDT Narrative KEERTHI MONTGOMERY - 07/28/2025 9:02 AM CDT Right Shoulder #3 Karen Momin MD LAB MICROBIOLOGY - GE NERAL ORDERABLES Final Result Performing Organization Address [facility] Co de Phone Number KEERTHI BRIGGSWCH [address] [place] [address]. [facility] [place] [address] * Tissue aerobic and anaerobic culture and gram stain Tissue Shoulder, right (07/18/2025 4:30 PM CDT) Direct Specimen Exam Stain: No organisms seen. No polymorphonuclear leukocytes seen. Comment:Testing performed by : [facility], [address] [place] [address]., [id number] Report Final Report: No growth KEERTHI MONTGOMERY Comment:Testing performed by : [facility], [address] [place] [address]., [id number] Tissue (Shoulder, right) 07/18/2025 4:30 PM CDT 07/18/2025 6:03 PM CDT Narrative KEERTHI MONTGOMERY - 07/23/2025 2:00 PM CDT Right Shoulder #2 us Karen Momin MD LAB MICROBIOLOGY - GE NERAL ORDERABLES Final Result Performing Organization Address [facility] Co de Phone Number KEERTHI BRIGITTEWCH [address] [employer]. [facility] [place] [address] * Tissue aerobic and anaerobic culture and gram stain Tissue Shoulder, right (07/18/2025 4:30 PM CDT) Direct Specimen Exam Stain: No organisms seen. No polymorphonuclear leukocytes seen. Comment:Testing performed by : [facility], [address] [place] [address]., [id number] Report Final Report: No growth KEERTHI MONTGOMERY Comment:Testing performed by : [facility], [address] [place] [address]., [id number] Tissue (Shoulder, right) 07/18/2025 4:30 PM CDT 07/18/2025 6:00 PM CDT Narrative KEERTHI MONTGOMERY - 07/28/2025 9:03 AM CDT Right Shoulder #1 Karen Momin MD LAB MICROBIOLOGY - GE NERAL ORDERABLES Final Result Performing Organization Address [facility] Co de Phone Number ANIRUDHOSCAR BRIGGSWCH [phone] [place] [address]. [facility] [place] [address] * Mycology (fungal) culture Tissue Shoulder, right (07/18/2025 4:30 PM CDT) Report Final Report: No fungus isolated Comment:Testing performed by : [facility], [address] [place] [address]., [id number] Tissue (Shoulder, right) 07/18/2025 4:30 PM CDT 07/18/2025 6:05 PM CDT Narrative KEERTHI MONTGOMERY - 08/16/2025 1:00 PM CDT Right Shoulder #5 Mycology cultures are held for 4 weeks. us Karen Momin MD LAB MICROBIOLOGY - GE NERAL ORDERABLES Final Result Performing Organization Address [facility] Co de Phone Number KEERTHI BRIGGSWCH [address] [place] [address]. [place] [place] [address] [address] * Mycology (fungal) culture Tissue Shoulder, right (07/18/2025 4:30 PM CDT) Report Final Report: No fungus isolated Comment:Testing performed by : [facility], [address] [place] [address]., [id number] Tissue (Shoulder, right) 07/18/2025 4:30 PM CDT 07/18/2025 6:03 PM CDT Narrative KEERTHI [facility] - 08/16/2025 1:00 PM CDT Right Shoulder #4 Mycology cultures are held for 4 weeks. us Karen Momin MD LAB MICROBIOLOGY - GE NERAL ORDERABLES Final Result Performing Organization Address [facility] Co de Phone Number KEERTHI BJWCH [address] [facility] [place] [address] * Mycology (fungal) culture Tissue Shoulder, right (07/18/2025 4:30 PM CDT) Report Final Report: No fungus isolated Comment:Testing performed by : [facility], [address] [place] [address]., [id number] Tissue (Shoulder, right) 07/18/2025 4:30 PM CDT 07/18/2025 6:04 PM CDT Narrative [facility] - 08/16/2025 1:00 PM CDT Right Shoulder #3 Mycology cultures are held for 4 weeks. us Karen Momin MD LAB MICROBIOLOGY - GE NERAL ORDERABLES Final Result Performing Organization Address [facility] de Phone Number KEERTHI BJWCH [address] [facility] [place] [address] * Mycology (fungal) culture Tissue Shoulder, right (07/18/2025 4:30 PM CDT) Report Final Report: No fungus isolated Comment:Testing performed by : [facility], [address] [place] [address]., [id number] Tissue (Shoulder, right) 07/18/2025 4:30 PM CDT 07/18/2025 6:03 PM CDT Narrative KEERTHI BRIGITTEWCH - 08/16/2025 1:00 PM CDT Right Shoulder #2 Mycology cultures are held for 4 weeks. us Karen Momin MD LAB MICROBIOLOGY - GE NERAL ORDERABLES Final Result Performing Organization Address City/[facility] Co de Phone Number KEERTHI BJWCH [address] [address]. [place] [address] * Mycology (fungal) culture Tissue Shoulder, right (07/18/2025 4:30 PM CDT) Report Final Report: No fungus isolated Comment:Testing performed by : [facility], [facility], [place]., [address] Tissue (Shoulder, right) 07/18/2025 4:30 PM CDT 07/18/2025 6:00 PM CDT Narrative KEERTHI BJWCH Jason 08/16/2025 1:00 PM CDT Right Shoulder #1 Mycology cultures are held for 4 weeks. Karen Momin MD LAB MICROBIOLOGY - [facility] ORDERABLES Final Result KEERTHI BJWCH [address] [place] [facility]. [place] [address] * ID AN ELECTIVE ENDOTRACHEAL AIRWAY, ID AN PROCEDURE PLACEHOLDER (07/18/2025 2:12 PM CDT) Narrative Amparo Vergara CRNA - 07/18/2025 2:12 PM CDT Amparo Vergara CRNA 07/18/2025 2:13 PM Airway Patient location: OR Urgency: elective Date/time: 07/18/2025 2:00 PM Indications for airway management: anesthesia Difficult airway: no Staff: Placed by: CORNER TRIMMER OPERATOR: Amparo Vergara CRNA Emergent airway documentation: Risks and benefits discussed: yes Consent obtained: yes Consent given by: patient Airway prep: Preoxygenated: yes Patient position: sniffing Mask difficulty assessment: 1 - vent by mask Spontaneous ventilation during airway: absent Sedation level during airway: GA Final airway details: Final airway type: endotracheal airway Tube type: ETT ETT size: 7.5 mm Cuffed: yes Technique used for successful ETT placement: video laryngoscopy Devices/Methods used in placement: intubating stylet Blade type: Silva Video blade type: Lowery Blade size: 3 Cormack-Lehane (video): grade I - full view of glottis Cuff volume: 7 mL Cuff inflated with: air ETT to teeth: 23 cm Placement verified by: auscultation Airway secured with: silk tape Number of attempts: 1 Additional comments: VL due to beach chair bed. Grade 1 view with Mac3 Lowery blade us Fatou Veras MD ANESTHESIA ORDERABLES Fi nal Result * ID AN PROCEDURE PLACEHOLDER (07/18/2025 1:46 PM CDT) Fatou Grove MD - 07/18/2025 1:46 PM CDT Fatou Veras MD 07/18/2025 1:46 PM Peripheral Block Patient location during procedure: pre-op holding Reason for block: post-op pain management per surgeon request Ultrasound image in chart or stored: yes Block type: single shot Laterality: right Block type: PECS II Staff: Supervising provider: Fatou Veras MD Placed by: Fellow: Gema Argueta MD Procedure prep: Preprocedure checklist: patient identified, procedure contraindications assessed, site marked, procedure consent, surgical consent, IV checked, risks, benefits and alternatives discussed, monitors and equipment checked and timeout performed Patient position: sitting and head of bed elevated Procedure performed while patient: sedate with meaningful contact Monitoring: oximetry and ECG Supplemental O2: nasal cannula Prep solution: chlorhexidine/alcohol Skin infiltrated with lidocaine 1%: yes Peripheral nerve block: Technique: ultrasound guided Needle type: short-bevel and echogenic Needle gauge: 21 G Needle length: 80 mm Injection assessment: injection made incrementally with constant monitoring, negative aspiration for heme, no paresthesias noted, normal resistance to injection and see flowsheet for medication details Assessment: Block success: full evaluation pending Events: patient tolerated procedure well with no complications us Fatou Veras MD ANESTHESIA ORDERABLES Fi nal Result * BW IP ANE LDA PERIPHERAL NERVE CATHETER, ID AN PROCEDURE PLACEHOLDER (07/18/2025 1:46 PM CDT) Fatou Grove MD - 07/18/2025 1:46 PM CDT Fatou Veras MD 07/18/2025 1:46 PM Peripheral Block Patient location during procedure: pre-op holding Reason for block: post-op pain management per surgeon request Ultrasound image in chart or stored: yes Block type: catheter continuous infusion Laterality: right Block type: brachial plexus - interscalene Staff: Supervising provider: Fatou Veras MD Placed by: Fellow: Gema Argueta MD Procedure prep: Preprocedure checklist: patient identified, procedure contraindications assessed, site marked, procedure consent, surgical consent, IV checked, risks, benefits and alternatives discussed, monitors and equipment checked and timeout performed Patient position: sitting and head of bed elevated Procedure performed while patient: sedate with meaningful contact Monitoring: oximetry and ECG Supplemental O2: nasal cannula Prep solution: chlorhexidine/alcohol PPE: provider hat/mask, sterile gloves, sterile drape and sterile probe cover and gel Skin infiltrated with lidocaine 1%: yes Peripheral nerve block: Technique: ultrasound guided Needle type: insulated, short-bevel and echogenic Needle gauge: 21 G (Glythera NanoLine [id number]) Injection assessment: injection made incrementally with constant monitoring, local visualized surrounding nerve on ultrasound, negative aspiration for heme, no paresthesias noted, normal resistance to injection and see flowsheet for medication details Catheter: Catheter type: 20g non-stimulating catheter and catheter over needle Other catheter type: Pajunk E-Catheter Catheter over needle length: 51 Catheter placement details: catheter position confirmed by ultrasound, no aspiration of heme, negative test dose, steri-strips, occlusive dressing applied and mastisol Assessment: Block success: full evaluation pending Events: patient tolerated procedure well with no complications Fatou Veras MD ANESTHESIA ORDERABLES Fi nal Result * Check Sample (07/18/2025 1:06 PM CDT) ABO Rh B Positive KEERTHI BRIGGSWCH HCLL OTHER 07/18/2025 1:06 PM CDT 07/18/2025 1:55 PM CDT us Karen Momin MD LAB BLOOD ORDERABLES Final Result KEERTHI BRIGGSWCH [address] [facility] [place] [address] * Type and screen (07/18/2025 1:06 PM CDT) ABO Rh B Positive ANIRUDHOSCAR GRECIAJOSELIN Fernando, indirect Negative KEERTHI PAIGEJOSELIN Blood 07/18/2025 1:06 PM CDT 07/18/2025 1:11 PM CDT Narrative KEERTHI MONTGOMERY - 07/18/2025 2:02 PM CDT Has the patient had Daratumumab or Isatuximab in the past 6 months?->Unknown us Jacqueline Austin NP LAB BLOOD BANK TEST O RDERABLES Final Result [facility] [address] [facility]. [facility] [place] [address] * eGFR (07/12/2025 8:20 AM CDT) eGFR 67 >=60 mL/min/1. 73 m2 Comment: Interpretive Data Reference Interval Normal >/= 90 mL/min/1.73m2 Mildly decreased* 60 - 89 mL/min/1.73m2 Mildly to moderately decreased 45 - 59 mL/min/1.73m2 Moderately to severely decreased 30 - 44 mL/min/1.73m2 Severely decreased 15 - 29 mL/min/1.73m2 Kidney Failure < 15 mL/min/1.73m2 *Relative to young adult level Estimated glomerular filtration rate is determined by the 2020 CKD-EPI equation recommended by the National Kidney Foundation (A Unifying Approach to GFR Estimation: Recommendations of the NKF-ASK Task Force on Reassessing the Inclusion of Race in Diagnosing Kidney Disease, JASN 2020). The CKD-EPI equation should not be used for patients with unstable renal function and has not been validated in children and those over 70. Current interpretive data was last reviewed 2021. Blood 07/12/2025 8:20 AM CDT 07/12/2025 8:59 AM CDT us Karen Momin MD LAB BLOOD ORDERABLES Final Result [facility] [place] [address] * Vitamin D 25 hydroxy (07/12/2025 8:20 AM CDT) [facility] Vitamin D 25-OH 31 30 - 80 ng/mL Blood 07/12/2025 8:20 AM CDT 07/12/2025 8:59 AM CDT us Karen Momin MD LAB BLOOD ORDERABLES Final Result Performing Organization Address City/[facility] Co de Phone Number [facility] [place] [address] * (ABNORMAL) Erythrocyte sedimentation rate (07/12/2025 8:20 AM CDT) [facility] Erythrocyte sedimentation rate 21(H) 1 - 15 mm/hr Blood 07/12/2025 8:20 AM CDT 07/12/2025 8:59 AM CDT us Karen Momin MD LAB BLOOD ORDERABLES Final Result Performing Organization Address [facility] de Phone Number [facility] [place] [address] * CBC without differential (07/12/2025 8:20 AM CDT) [facility] WBC 6.61 3.80 - 9.90 K/cumm Hgb 14.0 13.0 - 17.5 g/dL [facility] Hct 40.9 38.9 - 50.3 % [facility] Plt 332 150 - 400 K/cumm [facility] MPV 9.2 9.1 - 12.3 fL [facility] RBC 4.90 4.30 - 5.80 M/cumm [facility] MCV 83.5 81.3 - 96.4 fL [facility] MCH 28.6 27.1 - 33.3 pg [facility] MCHC 34.2 32.3 - 35.7 g/dL [facility] RDW CV 13.3 11.1 - 14.9 % [facility] RDW SD 40.7 35.7 - 48.1 fL [facility] NRBC abs 0.00 0.00 - 0.01 K/cumm [facility] Blood 07/12/2025 8:20 AM CDT 07/12/2025 8:59 AM CDT us Karen Momin MD LAB BLOOD ORDERABLES Final Result Performing Organization Address City/[facility] Co de Phone Number [facility] [place] [address] * Type and screen (07/12/2025 8:20 AM CDT) Pathologist [facility] Fernando, indirect Negative ABO Rh B Positive [facility] Blood 07/12/2025 8:20 AM CDT 07/12/2025 9:02 AM CDT Narrative [facility] - 07/12/2025 9:57 AM CDT Has the patient had Daratumumab or Isatuximab in the past 6 months?->Unknown us Jacqueline Austin NP LAB BLOOD BANK TEST O RDERABLES Final Result Performing Organization Address [facility] Co de Phone Number [facility] [place] [address] * CRP (acute phase) (07/12/2025 8:20 AM CDT) Pathologist [facility] CRP 1.4 <=10.0 mg/L Blood 07/12/2025 8:20 AM CDT 07/12/2025 8:59 AM CDT us Karen Momin MD LAB BLOOD ORDERABLES Final Result Performing Organization Address [facility] Co de Phone Number [facility] [place] [address] * (ABNORMAL) Comprehensive metabolic panel (07/12/2025 8:20 AM CDT) Sodium 135 135 - 145 mmol/L Potassium, pl 4.6 3.3 - 4.9 mmol/L [facility] Chloride 99 97 - 110 mmol/L [facility] CO2 29 22 - 32 mmol/L [facility] Anion gap 7 2 - 15 mmol/L [facility] BUN 11 6 - 25 mg/dL [facility] Creatinine 1.31(H) 0.80 - 1.30 mg/dL [facility] Glucose 106 70 - 199 mg/dL [facility] Comment: Interpretive Data Fasting glucose >/= 126 mg/dl is diagnostic for diabetes. Fasting is defined as no caloric intake for at least 8 hours. Fasting glucose between 100 mg/dl to 125 mg/dl is diagnostic of prediabetes. In a patient with classic symptoms of hyperglycemia or hyperglycemic crisis, a random glucose >/= 200 mg/dl is diagnostic for diabetes. In the absence of unequivocal hyperglycemia, results should be confirmed by repeat testing. The classification and Diagnosis of Diabetes Diabetes Care 2021; 46: S19-S40. Current interpretive data was last revised 2022. Calcium 9.7 8.5 - 10.3 mg/dL [facility] Bilirubin, total 0.3 0.1 - 1.2 mg/dL [facility] Protein, pl 7.3 6.5 - 8.5 g/dL [facility] Albumin 4.4 3.5 - 5.0 g/dL [facility] Alk phos 68 40 - 130 Units/L [facility] ALT 35 7 - 55 Units/L [facility] AST 39 10 - 50 Units/L [facility] Blood 07/12/2025 8:20 AM CDT 07/12/2025 8:59 AM CDT us Karen Momin MD LAB BLOOD ORDERABLES Final Result [facility] Department [place] [address] * (ABNORMAL) Cell Differential, Body Fluid (06/29/2025 9:57 AM CDT) Total cells diffed 100 cells Comment: Interpretive Data Unless otherwise specified, the reference range and other method performance specifications have not been established for CSF/Body Fluid tests. The test results should be integrated into the clinical context for interpretation. Current interpretive data was last revised on 2019. Neutrophils, fld 8 % [facility] Lymphs, fld 26 % CERNER [facility] Monocyte, fld 44 % CERNER [facility] Variant lymphocyte, fld 3(H) 0 - 0 % [facility] Macrophages, fld 15 % [facility] Synovial cells, fld 4 % [facility] Fluid 06/29/2025 9:57 AM CDT 06/29/2025 10:01 AM CDT us Karen Momin MD LAB BODY FLUIDS AND S TOOLS ORDERABLES Final Result Performing Organization Address [facility] Co de Phone Number [facility] Department [place] [address] * (ABNORMAL) Cell count w/rflx diff, body fluid (06/29/2025 9:57 AM CDT) Pathologist [facility] Specimen type, fld Synovial Color, fld Yellow [facility] Clarity, fld Cloudy(A) Clear [facility] Nucleated cells, fld 236 /cumm [facility] Comment: Interpretive Data Unless otherwise specified, the reference range and other method performance specifications have not been established for CSF/Body Fluid tests. The test results should be integrated into the clinical context for interpretation. Current interpretive data was last revised on 2019. RBC, fld 1,913 /cumm [facility] Fluid 06/29/2025 9:57 AM CDT 06/29/2025 10:01 AM CDT Narrative [facility] - 06/29/2025 10:56 AM CDT Specify:->right shoulder us Karen Momin MD LAB BODY FLUIDS AND S TOOLS ORDERABLES Final Result [facility] Department [place] [address] * Aerobic and anaerobic culture and gram stain Synovial fluid Shoulder, right (06/29/2025 9:57 AM CDT) Direct Specimen Exam Stain: Cytospin Gram stain shows: Rare polymorphonuclear leukocytes seen. Red blood cells present. No organisms seen. Report Final Report: No growth [facility] Synovial fluid (Shoulder, right) 06/29/2025 9:57 AM CDT 06/29/2025 10:52 AM CDT Narrative [facility] - 07/09/2025 11:47 AM CDT PLEASE HOLD FOR 2 WEEKS FOR C ACNES Testing performed by [facility] Microbiology Laboratory ([phone]) Specimens submitted from normally sterile body sites will have all bacterial morphotypes identified. Specimens that contain grossly mixed isaias and/or are from body sites that are not normally sterile will be examined for Staphylococcus aureus, Pseudomonas aeruginosa, beta-hemolytic strep, vancomycin-resistant Enterococcus, Bacteroides, Parabacteroides, Clostridium perfringens and fungus. If any of these are isolated, the organism will be reported. Current interpretive data was last revised on 2019. Karen Momin MD LAB MICROBIOLOGY - [facility] ORDERABLES Final Result Performing Organization Address City/State/[facility] Co de Phone Number [facility] Department [place] [address] * FL Fluoro Guided Aspiration Shoulder Right (06/29/2025 8:19 AM CDT) Anatomical Region Laterality Modality Shoulder Right Ultrasound 06/29/2025 10:0 0 AM CDT Impressions 06/29/2025 12:40 PM CDT 1. Right shoulder joint aspiration under fluoroscopic guidance. 7 mL of clear yellow fluid was aspirated and sent for cell count, Gram stain, and culture. Dictated by: Yazan Dinero M.D. The radiology attending physician has personally reviewed this study, and had reviewed and/or edited this written report and agrees with it. Electronically signed by: Thierry Worthington M.D. Narrative 06/29/2025 12:40 PM CDT EXAMINATION: Right shoulder joint aspiration under fluoroscopic guidance HISTORY: 49-year-old male, concern for prostatic infection. ATTENDING PRESENCE: Dr. Thierry Worthington M.D., the attending radiologist, was present from the beginning to the end of the procedure. Dr. Yazan Dinero MD (radiology director) was present and participated in the procedure. SEDATION: The patient did not require conscious sedation for the procedure. TECHNIQUE: The risks, benefits and alternatives were discussed and informed consent was obtained. Prior to beginning the procedure, [place] Protocol was performed to confirm the patient's identity and the planned procedure. Sterile barriers used during the procedure included cap, mask, hand hygiene, sterile gloves, and sterile drape. Chloraprep was used for cutaneous antisepsis. The patient was placed supine on the procedure table. The right shoulder joint was localized with fluoroscopic guidance. Local anesthesia was achieved with subcutaneous injection of 1% lidocaine 2 mL. An 18-gauge needle was then introduced into the joint under imaging guidance. 7 mL clear yellow fluid was aspirated. Subsequently 2 mL of a 2:1 mixture of Omnipaque-300 and 0.25% bupivacaine was injected to verify intra-articular position of the needle tip. The needle was removed. The skin was cleansed with hydrogen peroxide, and a bandage was placed. Complication: None ESTIMATED BLOOD LOSS: None CONDITION: Stable condition. DISCHARGED TO: Home FINDINGS: There is a right shoulder reverse total arthroplasty in expected position. Imaging confirm intra-articular position of the needle tip. Procedure Note Thierry Worthington MD PhD - 06/29/2025 EXAMINATION: Right shoulder joint aspiration under fluoroscopic guidance HISTORY: 49-year-old male, concern for prostatic infection. ATTENDING PRESENCE: Dr. Thierry Worthington M.D., the attending radiologist, was present from the beginning to the end of the procedure. Dr. Yazan Dinero MD (radiology director) was present and participated in the procedure. SEDATION: The patient did not require conscious sedation for the procedure. TECHNIQUE: The risks, benefits and alternatives were discussed and informed consent was obtained. Prior to beginning the procedure, [place] Protocol was performed to confirm the patient's identity and the planned procedure. Sterile barriers used during the procedure included cap, mask, hand hygiene, sterile gloves, and sterile drape. Chloraprep was used for cutaneous antisepsis. The patient was placed supine on the procedure table. The right shoulder joint was localized with fluoroscopic guidance. Local anesthesia was achieved with subcutaneous injection of 1% lidocaine 2 mL. An 18-gauge needle was then introduced into the joint under imaging guidance. 7 mL clear yellow fluid was aspirated. Subsequently 2 mL of a 2:1 mixture of Omnipaque-300 and 0.25% bupivacaine was injected to verify intra-articular position of the needle tip. The needle was removed. The skin was cleansed with hydrogen peroxide, and a bandage was placed. Complication: None ESTIMATED BLOOD LOSS: None CONDITION: Stable condition. DISCHARGED TO: Home FINDINGS: There is a right shoulder reverse total arthroplasty in expected position. Imaging confirm intra-articular position of the needle tip. IMPRESSION: 1. Right shoulder joint aspiration under fluoroscopic guidance. 7 mL of clear yellow fluid was aspirated and sent for cell count, Gram stain, and culture. Dictated by: Yazan Dinero M.D. The radiology attending physician has personally reviewed this study, and had reviewed and/or edited this written report and agrees with it. Electronically signed by: Thierry Worthington M.D. Karen [facility] FLUOROSCOPY MIRNA MCMILLAN Final Result * CT Shoulder Right WO Contrast (06/15/2025 7:03 AM CDT) Anatomical Region Laterality Modality Upper Extremities Right Computed Tomog harpal 06/15/2025 7:53 AM CDT Impressions 06/15/2025 7:53 AM CDT 1. 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 Procedure Note Peter Avendano MD - 06/15/2025 EXAMINATION: CT SHOULDER RIGHT WO CONTRAST HISTORY: Shoulder [...] arthroplasty with anterior angulation of the glenosphere Electronically signed by: Peter Avendano MD Karen Momin MD IM CT PROCEDURES Fin al Result * XR Shoulder Right 2 or More Views (06/14/2025 11:01 AM CDT) Anatomical Region Laterality Modality Upper Extremities, Shoulder Right Comp uted Radiography 06/14/2025 1:16 PM CDT Impressions 06/14/2025 1:27 PM CDT 1. 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 Dictated by: Regulo Grijalva MD The radiology attending physician has personally reviewed this study, and had reviewed and/or edited this written report and agrees with it. Electronically signed by: Jr Ayala MD Narrative 06/14/2025 1:27 PM CDT EXAMINATION: XR SHOULDER RIGHT 2 OR MORE VIEWS HISTORY: Right shoulder arthroplasty FINDINGS: 4 radiographs of the right shoulder are submitted. Comparison is made to right shoulder radiographs dated 10/31/2016. There is right reverse total shoulder arthroplasty with anterior angulation of the glenoid component. No acute periprosthetic fracture. Heterotopic ossification about distal acromion. There is increased acromioclavicular distance. Hardware is intact. Procedure Note Jr Ayala MD - 06/14/2025 EXAMINATION: XR SHOULDER RIGHT 2 OR MORE VIEWS HISTORY: Right shoulder arthroplasty FINDINGS: 4 radiographs of the right shoulder are submitted. Comparison is made to right shoulder radiographs dated 10/31/2016. There is right reverse total shoulder arthroplasty with anterior angulation of the glenoid component. No acute periprosthetic fracture. Heterotopic ossification about distal acromion. There is increased acromioclavicular distance. Hardware is intact. IMPRESSION: 1. 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 Dictated by: Regulo Grijalva MD The radiology attending physician has personally reviewed this study, and had reviewed and/or edited this written report and agrees with it. Electronically signed by: Jr Ayala MD Karen Momin MD IMG XR PROCEDURES Fin al Result from Last [address] [place] [address] [facility] [address] [place] [address] [facility] Advance Directives For more information, please contact: [phone] * Full Code (Latest Code Status on File) Date Activated Date Inactivated Comments 08/16/2025 3:58 PM 08/21/2025 6:33 PM * Full Code Date Activated Date Inactivated Comments 08/15/2025 7:08 PM 08/16/2025 3:58 PM * Full Code Date Activated Date Inactivated Comments 07/18/2025 7:02 PM 07/19/2025 6:29 PM Care Teams Educational Resource Coordinator Relationship Specialty Start Date End Date Iraida Schwartz [place] [facility] [address] PCP - General Family Practice 02/18/23
--- OUTSIDE RECORDS SUMMARY | 2025-09-05 15:36 | XMS_ITS | Encounter Summary ---
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 Historical Provider Final Res ult documented in this encounter Visit Diagnoses Not on filedocumented in this encounter Care Teams Vegetable Packer Relationship Specialty Start Date End Date Iraida Schwartz MD [address] [place], [place] [id number] PCP - General Family Practice 02/18/23 documented as of this encounter
--- OUTSIDE RECORDS SUMMARY | 2025-09-05 15:36 | XMS_ITS | Encounter Summary ---
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
== END 2025-09-05 13:52 | disposition home or self-care (01) ==
DX: T84.59XA Infection and inflammatory reaction due to other internal joint prosthesis, initial encounter (principal)
CPT/HCPCS: 36415; 80053; 85025